=== PATIENT | female | born 1935 | race Caucasian/White ===

== ENCOUNTER → 2017-01-07 | Outpatient (CLI) | payer OTHER ==
[~2017-01-07] MED LIST: ACET-1311 PO; AZITTAB PO; BENZ100C18 PO; BISA10SU38 PR; CEPH500C2 PO; CHOL20005 PO; CHOL20009 PO; CLOP1TAB5 PO; CLR10 PO; FURO-85 PO; HYDR-5688 PO; IPRASOL4 INH; LEVO750T23 PO; MCR/40125 PO; METO25TA3 PO; MOMLX PO; PRED10TA PO; PRNJ PO; SODIENE PR; TELM40TA11 PO; TPRSR25 PO
[2017-01-07 08:35] LABS: BLOOD UREA NITROGEN 42 mg/dl (7-18); BUN/CREATININE RATIO 28.1 (10-20); CALCIUM 8.5 mg/dl (8.5-10.1); CARBON DIOXIDE 24 mmol/L (21-32); CHLORIDE 107 mmol/L (98-107); GLUCOSE 112 mg/dl (70-99); SODIUM 140 mmol/L (136-145)
== END ==
LOC: C.LABCC 07:55
PROVIDERS: ATTEND Internal Medicine
DX: N18.3 Chronic kidney disease, stage 3 (moderate) (principal)

== ENCOUNTER → 2017-01-10 | Outpatient (CLI) | payer OTHER ==
[2017-01-10 09:38] LABS: BLOOD UREA NITROGEN 38 mg/dl (7-18); BUN/CREATININE RATIO 25.2 (10-20); CALCIUM 8.5 mg/dl (8.5-10.1); CARBON DIOXIDE 26 mmol/L (21-32); CHLORIDE 108 mmol/L (98-107); GLUCOSE 108 mg/dl (70-99); POTASSIUM 4.8 mmol/L (3.5-5.1); SODIUM 143 mmol/L (136-145)
== END ==
LOC: C.LABCC 08:45
PROVIDERS: ATTEND Internal Medicine
DX: N18.3 Chronic kidney disease, stage 3 (moderate) (principal)

== ENCOUNTER → 2017-02-07 | Outpatient (CLI) | payer OTHER ==
[2017-02-07 08:42] LABS: BLOOD UREA NITROGEN 44 mg/dl (7-18); BUN/CREATININE RATIO 27.6 (10-20); CALCIUM 8.9 mg/dl (8.5-10.1); CARBON DIOXIDE 30 mmol/L (21-32); CHLORIDE 105 mmol/L (98-107); GLUCOSE 124 mg/dl (70-99); POTASSIUM 4.7 mmol/L (3.5-5.1); SODIUM 141 mmol/L (136-145)
== END | disposition home or self-care (01) ==
LOC: C.LABCC 07:58
PROVIDERS: ATTEND Internal Medicine
DX: I50.9 Heart failure, unspecified (principal); N18.9 Chronic kidney disease, unspecified

== ENCOUNTER → 2017-03-11 | Outpatient (CLI) | payer OTHER ==
[~2017-03-11] MED LIST changes: +BISA10SU3 PR; +MOML PO
[2017-03-11 08:41] LABS: BLOOD UREA NITROGEN 41 mg/dl (7-18); BUN/CREATININE RATIO 22.7 (10-20); CARBON DIOXIDE 26 mmol/L (21-32); CHLORIDE 104 mmol/L (98-107); GLUCOSE 108 mg/dl (70-99); POTASSIUM 4.4 mmol/L (3.5-5.1); SODIUM 138 mmol/L (136-145)
[2017-03-11 08:49] LABS: CALCIUM 9.3 mg/dl (8.5-10.1)
== END ==
LOC: C.LABCC 08:19
PROVIDERS: ATTEND Internal Medicine
DX: N18.9 Chronic kidney disease, unspecified (principal)

== ENCOUNTER 2017-05-14 08:17 | Inpatient (IN) | payer OTHER ==
[~2017-05-14] VITALS: Ht 160 cm; Wt 74.9 kg
[2017-05-14] VITALS (10 sets, daily range): BP systolic 88–113; BP diastolic 51–68; PULSE 77–99; TEMP 36.5–36.9; O2SAT 94–99; Ht 160 cm; Wt 74.9 kg
[~2017-05-14 08:17] MED LIST changes: -ACET-1311 PO; -BISA10SU3 PR; -BISA10SU38 PR; -CEPH500C2 PO; -CHOL20005 PO; -CHOL20009 PO; -CLR10 PO; -FURO-85 PO; -HYDR-5688 PO; -IPRASOL4 INH; -LEVO750T23 PO; -METO25TA3 PO; -MOML PO; -MOMLX PO; -PRNJ PO; -SODIENE PR; -TELM40TA11 PO; -TPRSR25 PO
[2017-05-14] MEDS ORDERED: SODIUM CHLORIDE 0.9% 250ML 250 ML IV STA (08:28)
[2017-05-14] MEDS ORDERED: SODIUM CHLORIDE 0.9% 1000ML 1,000 ML IV STA (08:28)
--- NOTE | 2017-05-14 08:50 | EMERGENCY ROOM VISIT NOTE ---
History Report prepared by Ami: Aretha Ibrahim Under the Supervision of: Dr. Janae Altamirano M.D. First contact with patient: 08:24 Chief Complaint: FEVER Stated Complaint: FEVER History of Present Illness The patient is a 81 year old female who presents to the Emergency Room with complaints of constant fever that was noticed this morning. The history is limited secondary to altered mental status. The patient came to the ED via ambulance from [facility]. Per nursing staff, the patient's temperature was 101 this morning. The fever was relieved with Tylenol. She is at [facility] secondary to a stroke that occurred 15-20 years ago. The patient's daughter reports that the patient appeared to be somewhat confused last night. The patient is not normally on nasal cannula oxygen and her oxygen saturations are around 89-90% at baseline. The patient states that she feels well and she denies any complaints including abdominal pain. Source of History: patient, family (daughter), nursing staff History Limited By: AMS Onset: this morning Position: other (global) Quality: other (fever) Timing: constant Modifying Factors (Relieving): tylenol Associated Symptoms: No abdominal pain Review of Systems See HPI for pertinent positives & negatives. A total of 10 systems reviewed and were otherwise negative. Past Medical & Surgical Medical Problems: (1) History of stroke (2) Hypertension (3) Type 2 diabetes mellitus without complications Family History No pertinent family history Social History Drug Use: none Marital Status: Housing Status: detention Occupation Status: retired Current/Historical Medications Scheduled Cholecalciferol (Vitamin D), 2,000 UNIT PO QAM Clopidogrel Bisulfate (Plavix), 75 MG PO DAILY Furosemide (Lasix), 20 MG PO QAM Loratadine (Claritin), 10 MG PO QAM Telmisartan (Micardis), 40 MG PO QAM Scheduled PRN Acetaminophen (Tylenol), 650 MG PO Q8 PRN for Pain Bisacodyl (Dulcolax), [address] DAILY PRN for NO BM FOR 3 DAYS Magnesium Hydroxide (Milk of Magnesia), 30 ML PO DAILY PRN for NO BM FOR 3 DAYS Prune Juice (Prune Juice ), 1 DOSE PO DAILY PRN for NO BM IN 2 DAYS Sodium Phosphate/Biphosphate (Fleet Enema), [address] DAILY PRN for NO BM FOR 4 DAYS Allergies Coded Allergies: No Known Allergies (Verified , 05/14/17) Physical Exam Vital Signs Date Time Temp Pulse Resp B/P (MAP) Pulse Ox O2 Delivery O2 Flow Rate FiO2 05/14/17 12:11 80 05/14/17 11:27 94 Nasal Cannula 2.0 05/14/17 11:01 85 20 121/67 05/14/17 09:42 93 20 117/69 94 Nasal Cannula 2.0 05/14/17 08:45 93 Nasal Cannula 3.0 05/14/17 08:39 37.2 88 28 115/57 89 Room Air 05/14/17 08:36 95 Physical Exam Vital signs reviewed. General: Chronically ill-appearing elderly female, in no significant distress. HEENT: No scleral icterus, PERRLA, neck supple. Atraumatic. Cardiovascular: Mildly tachycardic rate and regular rhythm, no extra sounds. Pulmonary: Crackles at bases bilaterally, poor inspiratory effort. Abdomen: Soft, nontender, nondistended, positive bowel sounds. Musculoskeletal: Atraumatic, 2+ right lower extremity pitting edema, 1+ left lower extremity pitting edema. Neurologic: Patient awake alert and able to answer questions regarding age and date but confused to year and time, mild right facial droop, mild right- sided upper and lower extremity weakness. Skin: Warm to touch, dry, no rash Medical Decision & Procedures ER Provider Diagnostic Interpretation: Radiology results as stated below per my review and radiologist interpretation: CHEST ONE VIEW PORTABLE COMPARISON STUDY: 10/12/2012 FINDINGS: Parenchymal infiltrate left base. Chronic prominence pulmonary vasculature. Diaphragms are smooth. IMPRESSION: Infiltrate left base. Electronically signed by: Ranjith Navarrete M.D. 05/14/2017 9:04 AM Dictated Date/Time: 05/14/2017 9:[address] NONCONTRAST Findings: The paranasal sinuses and mastoid air cells are clear. Old left cerebral infarct. Mild compensatory prominence left lateral ventricle. Mild age-related atrophy and chronic small vessel change. No acute intracranial abnormality. Impression: 1. Old left cerebral infarct. 2. Age-related atrophy and chronic small vessel change. 3. No acute process. Electronically signed by: Ranjith Navarrete M.D. 05/14/2017 9:23 AM Dictated Date/Time: 05/14/2017 9:22 AM Laboratory Results Test 05/14/17 08:45 05/14/17 08:56 05/14/17 09:05 Prothrombin Time 11.6 SECONDS (9.0-12.0) Prothromb Time International Ratio 1.1 (0.9-1.1) Activated Partial Thromboplast Time 29.4 SECONDS (21.0-31.0) Partial Thromboplastin Ratio 1.1 Direct Bilirubin 0.2 mg/dl (0-0.2) Total Creatine Kinase 455 U/L (26-192) Creatine Kinase MB 0.7 ng/ml (0.5-3.6) Creatine Kinase MB Ratio 0.2 (0-3.0) Troponin I 0.037 ng/ml (0-0.045) Bedside Lactic Acid Venous 1.77 mmol/L (0.90-1.70) Urine Color DK YELLOW Urine Appearance TURBID (CLEAR) Urine pH 5.0 (4.5-7.5) Urine Specific [place] 1.022 (1.000-1.030) Urine Protein 1+ (NEG) Urine Glucose (UA) NEG (NEG) Urine Ketones TRACE (NEG) Urine Occult Blood 3+ (NEG) Urine Nitrite NEG (NEG) Urine Bilirubin NEG (NEG) Urine Urobilinogen NEG (NEG) Urine Leukocyte Esterase LARGE (NEG) Urine WBC (Auto) >30 /hpf (0-5) Urine RBC (Auto) 0-4 /hpf (0-4) Urine Hyaline Casts (Auto) 1-5 /lpf (0-5) Urine Epithelial Cells (Auto) >30 /lpf (0-5) Urine Bacteria (Auto) 1+ (NEG) Urine Renal Epithelial Cells 5-10 /lpf (0-5) Laboratory results per my review. Medications Administered Medications (Trade) Dose Ordered Sig/Ministerio Route Start Time Stop Time Status Last Admin Dose Admin Sodium Chloride 250 ml @ 999 mls/hr Q16M STAT IV 05/14/17 08:28 05/14/17 08:43 DC 05/14/17 09:25 999 MLS/HR Sodium Chloride 1,000 ml @ 125 mls/hr Q8H STAT IV 05/14/17 08:28 05/14/17 13:49 DC 05/14/17 09:25 125 MLS/HR Levofloxacin (Levaquin / D5W) 750 mg NOW STAT IV 05/14/17 10:22 05/14/17 10:28 DC 05/14/17 10:22 750 MG Piperacillin Sod/ Tazobactam Sod (Zosyn Iv) 4.5 gm NOW STAT IV 05/14/17 10:22 05/14/17 10:28 DC 05/14/17 11:06 4.5 GM Vancomycin HCl 1875 mg/Sodium Chloride 537.5 ml @ 200 mls/hr ONE STAT IV 05/14/17 10:22 05/14/17 13:03 DC 05/14/17 11:06 200 MLS/HR ECG Indication: altered mental status Rate (beats per minute): 101 Rhythm: sinus tachycardia Findings: 1st degree AV block, PAC, T-wave inversion (Anterolateral), no acute ischemic change, other (Likely previous inferior and anterior infarcts) ED Course 0827: Past medical records reviewed. The patient was evaluated in room A10. A complete history and physical examination was performed. 0828: Ordered Sodium Chloride 1000 ml @ 125 mls/hr IV, Sodium Chloride 250 ml @ 999 mls/hr IV 1022: Ordered Vancomycin HCl 1875 mg/Sodium Chloride 537.5 ml @ 200 mls/hr IV, Zosyn 4.5 gm IV, Levofloxacin 750 mg IV 1038: Upon reevaluation, the patient is resting comfortably. I discussed laboratory and radiographic results with the patient and her family. They verbalized agreement of the treatment plan. The patient will be evaluated for further management and care. 1120: I reviewed the patient's case with Dr. Madison Lewis [facility]. He will evaluate the patient for further management. Medical Decision Differentials include influenza, other viral illness, pneumonia, urinary tract infection, metabolic abnormality, medication effect, cellulitis, meningitis, intra-abdominal source. Medication Reconciliation: I attest that I have personally reviewed the patient' s current medication list. Blood Pressure Screening: Patient was found to have normal blood pressure on screening and does not require follow-up. This patient was evaluated and appeared to be in no significant distress. She is noted to be febrile. IV access was obtained and laboratory work was drawn. The patient was hydrated with normal saline solution. The patient is noted to have had a fever at the detention prior to transfer. Patient was given Tylenol. Evaluation today reveals evidence of a pulmonary infiltrate at the left base, positive UA for infection. Patient was medicated with IV vancomycin , IV Zosyn and IV Levaquin. He is a possibility of aspiration due to her previous stroke as well as MRSA because of her detention status. The urine should be adequately covered with the above regimen. Blood cultures are pending. Lactic acid is 1.77. Patient's case was discussed with the hospitalist service will evaluate the patient for further management. Consults Time Called: 1033 Consulting Physician: Dr. Maidson YOUSIF Returned Call: 1120 I reviewed the patient's case with Dr. Madison YOUSIF. He will evaluate the patient for further management. Impression Primary Impression: UTI (urinary tract infection) Additional Impressions: Pneumonia Acute renal failure Altered mental status Scribe Attestation The scribe's documentation has been prepared under my direction and personally reviewed by me in its entirety. I confirm that the note above accurately reflects all work, treatment, procedures, and medical decision making performed by me. Departure Information Dispostion Being Evaluated By Hospitalist Referrals KnoxAicha (PCP) Patient Instructions My [facility] Problem Qualifiers Primary Impression: UTI (urinary tract infection) Urinary tract infection type: site unspecified Hematuria presence: without hematuria Qualified Codes: N39.0 - Urinary tract infection, site not specified Additional Impressions: Pneumonia Pneumonia type: due to unspecified organism Laterality: left Lung location : lower lobe of lung Qualified Codes: J18.1 - Lobar pneumonia, unspecified organism Acute renal failure Acute renal failure type: unspecified Qualified Codes: N17.9 - Acute kidney failure, unspecified Altered mental status Altered mental status type: unspecified Qualified Codes: R41.82 - Altered mental status, unspecified
[2017-05-14 09:06] LABS: HEMATOCRIT 32.3 % (37-47); MEAN CELL VOLUME 91.8 fL (80-100); MEAN CORPUSCULAR HEMOGLOBIN 30.7 pg (25-34); MEAN CORPUSCULAR HGB CONC 33.4 g/dl (32-36); MEAN PLATELET VOLUME 10.2 fL (7.4-10.4); PLATELET COUNT 222 K/uL (130-400); RED BLOOD COUNT 3.52 M/uL (4.2-5.4); WHITE BLOOD COUNT 21.54 K/uL (4.8-10.8)
--- NOTE | 2017-05-14 09:06 | DIAGNOSTIC IMAGING REPORT ---
CHEST ONE VIEW PORTABLE CLINICAL HISTORY: fever dyspnea COMPARISON STUDY: 10/12/2012 FINDINGS: Parenchymal infiltrate left base. Chronic prominence pulmonary vasculature. Diaphragms are smooth. IMPRESSION: Infiltrate left base. Electronically signed by: Ranjith Navarrete M.D. 05/14/2017 9:04 AM Dictated Date/Time: 05/14/2017 9:04 AM
[2017-05-14] MEDS ORDERED: CLR10 PO (09:12)
[2017-05-14] MEDS ORDERED: FURO-85 PO (09:12)
[2017-05-14] MEDS ORDERED: CHOL20009 PO (09:14)
[2017-05-14] MEDS ORDERED: TELM40TA11 PO (09:14)
[2017-05-14 09:15] LABS: INR 1.1 (0.9-1.1); PARTIAL THROMBOPLASTIN RATIO 1.1; PROTHROMBIN TIME (PATIENT) 11.6 SECONDS (9.0-12.0)
[2017-05-14] MEDS ORDERED: BISA10SU38 PR (09:16)
[2017-05-14] MEDS ORDERED: PRNJ PO (09:16)
[2017-05-14] MEDS ORDERED: ACET-1311 PO (09:16)
[2017-05-14] MEDS ORDERED: MOMLX PO (09:16)
[2017-05-14] MEDS ORDERED: SODIENE PR (09:16)
[2017-05-14 09:23] LABS: ALT/SGPT 15 U/L (12-78); AST/SGOT 34 U/L (15-37); BLOOD UREA NITROGEN 40 mg/dl (7-18); BUN/CREATININE RATIO 16.8 (10-20); CALCIUM 8.5 mg/dl (8.5-10.1); CARBON DIOXIDE 24 mmol/L (21-32); CHLORIDE 105 mmol/L (98-107); GLUCOSE 131 mg/dl (70-99); MAGNESIUM 1.9 mg/dl (1.8-2.4); POTASSIUM 4.1 mmol/L (3.5-5.1); SODIUM 138 mmol/L (136-145)
--- NOTE | 2017-05-14 09:25 | DIAGNOSTIC IMAGING REPORT ---
HEAD CT NONCONTRAST CT DOSE: 537.48 mGy.cm HISTORY: Mental status change AMS, fever TECHNIQUE: Multiaxial CT images of the head were performed without the use of intravenous contrast. Comparison: None. Findings: The paranasal sinuses and mastoid air cells are clear. Old left cerebral infarct. Mild compensatory prominence left lateral ventricle. Mild age-related atrophy and chronic small vessel change. No acute intracranial abnormality. Impression: 1. Old left cerebral infarct. 2. Age-related atrophy and chronic small vessel change. 3. No acute process. Electronically signed by: Ranjith Navarrete M.D. 05/14/2017 9:23 AM Dictated Date/Time: 05/14/2017 9:22 AM
[2017-05-14 09:27] LABS: BASO ABS # 0.01 K/uL (0-0.2); COMPLETE YES; IG% 1.9 %; LYMPH % 4.8 %; LYMPH ABS # 1.03 K/uL (1.2-3.4); MONO % 2.3 %
[2017-05-14 09:29] LABS: ALKALINE PHOSPHATASE 91 U/L (45-117); CKMB/CK RATIO 0.2 (0-3.0)
[2017-05-14 09:38] LABS: URINE APPEARANCE TURBID (CLEAR); URINE BILIRUBIN NEG (NEG); URINE COLOR DK YELLOW; URINE EPITHELIAL CELL AUTO >30 /lpf (0-5); URINE NITRITE NEG (NEG); URINE SPECIFIC GRAVITY 1.022 (1.000-1.030); UROBILINOGEN NEG (NEG); ZZURINE CULT IF INDIC CATH YES
[2017-05-14 09:40] LABS: MANUAL MICROSCOPIC REQUIRED? NO; REVIEW REQ? YES
[2017-05-14] MEDS ORDERED: VANCOMYCIN IV STA (10:22)
[2017-05-14] MEDS ORDERED: PIPERACILLIN/TAZOBACTAM 4.5 GM/100ML D5W IV STA (10:22)
[2017-05-14] MEDS ORDERED: LEVAQUIN 750MG / 150ML D5W IV STA (10:22)
[2017-05-14] MEDS ORDERED: SODIUM CHLORIDE 0.9% IV STA (10:22)
[2017-05-14] MEDS ORDERED: POLYETHYLENE (MIRALAX) 17 GM PACK PO PRN (12:00)
[2017-05-14] MEDS ORDERED: ALUMINUM/MAGNESIUM/SIMETH (MAALOX MAX) 30 ML UDC PO PRN (12:00)
[2017-05-14] MEDS ORDERED: MAGNESIUM HYDROXIDE SUSP 30 ML UDC PO PRN (12:00)
[2017-05-14] MEDS ORDERED: ACETAMINOPHEN 325 MG TAB PO PRN (12:00)
[2017-05-14] MEDS ORDERED: SOD PHOSPHATE/SOD BIPHOSPHATE ENEMA 132 ML BTL PR PRN (12:15)
[2017-05-14] MEDS ORDERED: BISACODYL 10 MG SUPP PR PRN (12:15)
[2017-05-14] MEDS ORDERED: PRUNE JUICE PO PRN (12:15)
--- NOTE | 2017-05-14 12:43 | HISTORY & PHYSICAL EXAMINATION ---
DATE OF ADMISSION: 05/14/2017 CHIEF COMPLAINT: Shortness of breath/change in mental status x1 day. HISTORY OF PRESENT ILLNESS: Ms. Mary Ashley is an 81-year-old white female with past medical history of left cerebral stroke 21 years ago. Currently, patient is almost bedbound. Occasionally, gets placed in a wheelchair, resident at [facility]. The patient was in her regular state of health until last night when her daughter and power of banking attorney Hanny Katz noticed that her mom is a little bit confused. She did not do a full evaluation in intends of degree of confusion and disorientation, but all what she said "she did not seem to be herself". She said that when she asked the question "she states yes or no, but she was slightly off". This morning at 7:00 a.m. [facility] staff called the daughter and told her that your mom is having fever and shortness of breath. They wanted to send her to the hospital, but the mother refused. . Hanny Katz being her power of banking attorney took the decision to send her to the hospital for further evaluation and management. The patient was brought to the hospital and due to her baseline condition she was able to express pain in her right lower extremity. The patient was not aware of her shortness of breath despite of her oxygen saturation being 89 upon arrival to the ER. Also, patient as always and as usual kept saying "I'm wonderful" and she has no complaints given her underlying CVA and possibly some cognitive dysfunction. As per nursing staff, the symptoms started this morning of shortness of breath and fever and as per daughter since yesterday, she has been confused. The patient's diet at [facility] is regular diet. She is able to move her left hand freely. Right side is paralyzed with muscle atrophy and contractures. Chest x-ray in the ER showed left lower lobe infiltrate. No episodes of aspiration was reported by staff, there was no cough or sputum production but the daughter stated that her mom had a runny nose for about 2 weeks now. Rest of the HPI is limited due to patient cognitive condition. REVIEW OF SYSTEMS: As mentioned in HPI, fever/chills. No significant weight loss. Staff and daughter did not report any headache, vision changes or neck stiffness. A nasal stuffiness and runny nose was reported by daughter, but no history of sore throat. Again, staff and daughter denied any cough. The patient denied any chest pain, abdominal pain, nausea, vomiting. Staff and daughter denied any rash or ulcers. Daughter denied any joint pain, swelling, erythema and was surprised when she saw the right lower extremity swollen and tender and red. Focal weakness in the right side is at her baseline. No new numbness or slurred speech. No reported dysuria or blood in urine. The patient is incontinent. No reported depression, suicide thoughts. There no reported swelling of lymph nodes or skin bruises. FAMILY HISTORY: Positive for breast cancer in her mom. Father had CVA and mother had bypass surgery. SOCIAL HISTORY: The patient used to be a smoker, quit smoking about 20 years ago. Currently resident at [facility]. No access to alcohol or smoking. PAST MEDICAL HISTORY: 1. Breast cancer with history of modified radical mastectomy, left breast. 2. Carotid artery stenosis. 3. Chronic kidney disease stage III. 4. History of diastolic congestive heart failure. 5. Diabetes mellitus type 2. 6. History of dependent edema. 7. History of dyslipidemia. 8. Hypertension. 9. 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 10. Vitamin D deficiency. 11. Anxiety. ALLERGIES: No known allergy. MEDICATIONS: 1. Vitamin D supplement. 2. Plavix 75 mg p.o. daily. 3. Lasix 20 mg p.o. q.a.m. 4. Claritin 10 mg q.a.m. 5. Micardis 40 mg p.o. q.a.m. 6. PRN acetaminophen. 7. PRN bisacodyl. 8. PRN milk of magnesia. 9. PRN prune juice. 10. PRN Fleet enema. PHYSICAL EXAMINATION: VITAL SIGNS: Temperature here is 37.2, heart rate is 93, respiration is 20, blood pressure 117/69, pulse ox 89% on room air, 94% on 2 liters. GENERAL: The patient is obese, appears to be in moderate distress. HEAD, EYES, EARS, NOSE, AND THROAT: No scleral icterus. Moist mucous membrane. Eye -- extraocular muscles intact. NECK: Supple, no swelling. CARDIOVASCULAR: Mildly tachycardia. Regular rate and rhythm with extrasystoles, no significant murmur. LUNGS: Decreased air entry bilaterally. Poor inspiratory effort, decreased chest wall expansion, bilateral crackles at the bases. ABDOMEN: Soft, nontender, nondistended. No swelling. MUSCULOSKELETAL: The right-sided contracture and muscle atrophy. NEUROLOGIC: The patient is awake, alert, oriented. Answers questions appropriately, moves left side of her body. Cranial nerves II-XII appears to be intact except for mild right-sided facial droop. SKIN: Warm to touch, dry. No rash. LOWER EXTREMITY: Right-sided lower extremity erythema, swelling and tenderness with a tinea pedis cracks between toes. PSYCHIATRIC EVALUATION: The patient appears to be pleasant. Not in depressed mood. Answers are appropriate. IMAGING: CT scan head showed old left cerebral infarct. No acute event. Chest x-ray showed left lower lobe density/infiltrate. EKG showed first degree AV block with paroxysmal atrial contractions, tachycardia with ST-T wave abnormality and possible age indeterminate old infarct. LABORATORY DATA: Reviewed. White blood cell count 21.5, hemoglobin 10.8, platelet 222, BUN is 40, creatinine 2.40, sodium 138, potassium 4.1, chloride 105, bicarb is 24. Blood sugar is 131. ASSESSMENT AND PLAN: 1. Acute hypoxic respiratory failure secondary to below. Will titrate O2 supplement for an oxygen saturation 92-94, due to remote history of smoking and current slight wheezing on chest exam would like to avoid oxygen saturation higher than 96. 2. Severe sepsis present on admission/left lower lobe pneumonia, despite of being resident at [facility] will treat her as community-acquired pneumonia giving no evidence of exposure to recent antibiotics. We will obtain rapid flu to rule out secondary bacterial infection on top of influenza, obtain urine strep and legionella, sputum culture, initiate azithromycin/ceftriaxone combination, add Lactinex to protect her from C. diff, obtain swallow eval to rule out aspiration as a source for her pneumonia. 3. Diastolic congestive heart failure exacerbation, will hold IVF except for KVO, small dose of Lasix IV, obtain cardiac 2D echo. place a jimenes, I/O 4. Bronchospasm with wheezes .. would not label her with COPD as she did not have this diagnosis before, bronchospasm could be secondary to pneumonia and inflammatory process in the lung versus cardiac bronchospasm, yet will treat her with a low dose Solu-Medrol and bronchodilators/Atrovent plus Xopenex, avoid albuterol due to coexisting tachycardia. 5. Right lower extremity erythema - swelling - tenderness .. obtain ultrasound duplex right lower extremity, rule out DVT, if no DVT then ceftriaxone given for pneumonia likely to take care of her cellulitis. Source of entry for bacteria if it is cellulitis could be her tinea pedis. 6. Tinea pedis .. ketoconazole between toes x8 weeks. 7. If patient does not have a DVT on ultrasound will not start her on DVT prophylaxis as she is at her baseline immobility. 8. The patient is on regular diet at [facility]. Will continue that with observation and aspiration precautions, and obtain swallow eval to rule out any aspiration incidents. 9. WILBERTO/CKD stage III, Hold ACEI , continue lasix low dose IV with careful monitoring of renal function 10. Hx of CVA, continue plavix 11. The patient's daughter Hanny Katz who is her power of banking attorney stated that her mother is a DO NOT RESUSCITATE AND DO NOT INTUBATE STATUS. She will let her bring the power of banking attorney legal document with him when he comes to the hospital. Nursing staff will scan it into the system. BRIANNE
--- NOTE | 2017-05-14 13:19 | DIAGNOSTIC IMAGING REPORT ---
Venous Doppler right leg RIGHT VENOUS DOPP LOWER EXT UNILAT CLINICAL HISTORY: Right DVT Right pain. Edema. TECHNIQUE: Venous Doppler COMPARISON STUDY: None FINDINGS: Normal study IMPRESSION: Normal study Electronically signed by: Ranjith Navarrete M.D. 05/14/2017 1:18 PM Dictated Date/Time: 05/14/2017 1:17 PM
[2017-05-14] MEDS ORDERED: FUROSEMIDE INJ 20 MG in SYRINGE 0 ML IV SCH (14:00)
[2017-05-14] MEDS ORDERED: SODIUM CHLORIDE 0.9% 1000ML 1,000 ML IV SCH (14:00)
[2017-05-14] MEDS ORDERED: CEFTRIAXONE SOD INJ 1 GM in DEXTROSE 5% ADD-VANTAGE 50ML 50 ML IV SCH (14:00)
[2017-05-14] MEDS: METHYLPREDNISOLONE IV 40 MG in SYRINGE 0 ML IV SCH (14:25)
[2017-05-14] MEDS: AZITHROMYCIN IV 500 MG in DEXTROSE 5% 250ML 250 ML IV SCH (15:01)
[2017-05-14] MEDS: IPRATROPIUM BROMIDE NEB SOLN 0.02% 2.5 ML VIAL INH SCH ×2 (15:55→23:01)
[2017-05-14] MEDS: LEVALBUTEROL 0.63MG/3 ML NEB INH SCH ×2 (15:56→23:01)
[2017-05-14 16:12] LABS: ALT/SGPT 17 U/L (12-78); AST/SGOT 46 U/L (15-37); BLOOD UREA NITROGEN 38 mg/dl (7-18); BUN/CREATININE RATIO 16.7 (10-20); CALCIUM 7.6 mg/dl (8.5-10.1); CARBON DIOXIDE 19 mmol/L (21-32); CHLORIDE 103 mmol/L (98-107); GLUCOSE 144 mg/dl (70-99); POTASSIUM 4.1 mmol/L (3.5-5.1); SODIUM 136 mmol/L (136-145)
[2017-05-14 16:15] LABS: ALB/GLOB RATIO 0.6 (0.9-2); ALKALINE PHOSPHATASE 76 U/L (45-117); CHOLESTEROL 116 mg/dl (0-200); CHOLESTEROL/HDL RATIO 2.3; HDL CHOLESTEROL 50 mg/dl; LDL CHOLESTEROL CALCULATED 49 mg/dl; TRIGLYCERIDES 85 mg/dl (0-150); VERY LOW DENSITY LIPOPROT CALC 17 mg/dl
[2017-05-14] MEDS ORDERED: ALPRAZOLAM 0.25 MG TAB PO ONE (17:00)
[2017-05-14] MEDS ORDERED: NURSING VERBAL MED ORDER ONE ×2 (17:00→21:30)
[2017-05-14] MEDS: LACTOBACILLUS ACIDOPHILUS 1 GM PACK PO SCH (17:19)
[2017-05-14 17:48] LABS: BLOOD UREA NITROGEN 40 mg/dl (7-18); GLUCOSE 165 mg/dl (70-99)
[2017-05-14 17:49] LABS: BUN/CREATININE RATIO 16.8 (10-20); CALCIUM 7.9 mg/dl (8.5-10.1); CARBON DIOXIDE 20 mmol/L (21-32); CHLORIDE 103 mmol/L (98-107); MAGNESIUM 1.6 mg/dl (1.8-2.4); POTASSIUM 3.8 mmol/L (3.5-5.1); SODIUM 136 mmol/L (136-145)
--- NOTE | 2017-05-14 18:18 | Progress Note ---
Progress Note Date of Service May 14, 2017. Progress Note Addendum following up on her condition; Lactate increased to 3.3 Procalcitonin is >11 continues to be SOB will change her Abx regimen to HCAP switch CTXN to Cefepime add zyvox due to WILBERTO/CKD would avoid vanco untill creatinine stabilizes consult Dr. Maile Lewis MD Hospitalist
[2017-05-14] MEDS: LINEZOLID / D5W 600 MG in PREMIXED IN D5W 300 ML IV SCH (18:28)
[2017-05-14] MEDS: FUROSEMIDE INJ 20 MG in SYRINGE 0 ML IV SCH (18:28)
[2017-05-14] MEDS: PATIENT'S HEIGHT NEEDED SCH ×2 (18:29→18:30)
[2017-05-14] MEDS: CEFEPIME IV 1,000 MG in DEXTROSE 5% 100ML 100 ML IV SCH (20:22)
[2017-05-14] MEDS: KETOCONAZOLE 2% CR 15 GM TUBE EXT SCH (20:22)
[2017-05-14] MEDS ORDERED: MAGNESIUM SULFATE 1GM / D5W 1 GM in PREMIXED IN D5W 100 ML IV STA (21:49)
[2017-05-15] VITALS (12 sets, daily range): BP systolic 78–117; BP diastolic 41–66; PULSE 69–94; TEMP 36.4–36.8; O2SAT 93–98
[2017-05-15] MEDS: ALBUMIN HUMAN 25% 12.5 GM/50 ML VIAL IV SCH ×2 (00:32→00:53)
[2017-05-15] MEDS ORDERED: NURSING VERBAL MED ORDER ONE ×2 (01:00→11:00)
[2017-05-15] MEDS: METHYLPREDNISOLONE IV 40 MG in SYRINGE 0 ML IV SCH (02:20)
[2017-05-15 05:59] LABS: BASO % 0.1 %; BASO ABS # 0.01 K/uL (0-0.2); HEMATOCRIT 26.9 % (37-47); IG% 2.2 %; LYMPH % 6.5 %; LYMPH ABS # 1.08 K/uL (1.2-3.4); MEAN CELL VOLUME 92.4 fL (80-100); MEAN CORPUSCULAR HEMOGLOBIN 30.2 pg (25-34); MEAN CORPUSCULAR HGB CONC 32.7 g/dl (32-36); MEAN PLATELET VOLUME 9.8 fL (7.4-10.4); MONO % 2.4 %; NEUT % 88.8 %; PLATELET COUNT 158 K/uL (130-400); RED BLOOD COUNT 2.91 M/uL (4.2-5.4); WHITE BLOOD COUNT 16.58 K/uL (4.8-10.8)
[2017-05-15] MEDS: FUROSEMIDE INJ 20 MG in SYRINGE 0 ML IV SCH (06:04)
[2017-05-15] MEDS: LINEZOLID / D5W 600 MG in PREMIXED IN D5W 300 ML IV SCH ×2 (06:05→18:26)
[2017-05-15 06:25] LABS: COMPLETE YES; DOHLE BODIES 1+; TOXIC GRANULATION 1+
[2017-05-15 06:28] LABS: MAGNESIUM 2.2 mg/dl (1.8-2.4); PHOSPHORUS 4.2 mg/dl (2.5-4.9)
[2017-05-15] MEDS: IPRATROPIUM BROMIDE NEB SOLN 0.02% 2.5 ML VIAL INH SCH (07:35)
[2017-05-15] MEDS: LEVALBUTEROL 0.63MG/3 ML NEB INH SCH (07:35)
[2017-05-15] MEDS: KETOCONAZOLE 2% CR 15 GM TUBE EXT SCH ×2 (08:01→20:42)
[2017-05-15] MEDS: CHOLECALCIFEROL 1000 INTER.UNIT TAB PO SCH (08:01)
[2017-05-15] MEDS: CLOPIDOGREL BISULFATE 75 MG TAB PO SCH (08:01)
[2017-05-15] MEDS: CEFEPIME IV 1,000 MG in DEXTROSE 5% 100ML 100 ML IV SCH ×2 (08:02→20:42)
[2017-05-15] MEDS ORDERED: ALBUT/IPRATROP 3MG/0.5MG NEB 3 ML VIAL INH PRN (09:00)
--- NOTE | 2017-05-15 09:17 | DIAGNOSTIC IMAGING REPORT ---
CHEST ONE VIEW PORTABLE HISTORY: wheezing COMPARISON: Chest 05/14/2017. FINDINGS: The heart remains mildly enlarged. Mild interstitial pulmonary edema and small bilateral pleural effusions persist. No pneumothorax. Patchy densities the left lung base may represent atelectasis or pneumonia.. Left axillary surgical clips are again noted. IMPRESSION: No change in the mild interstitial pulmonary edema and small bilateral pleural effusions. Stable patchy density at the left lung base. Electronically signed by: Kenan Camarillo M.D. 05/15/2017 9:15 AM Dictated Date/Time: 05/15/2017 9:14 AM
--- NOTE | 2017-05-15 09:19 | Progress Note ---
Progress Note Date of Service May 15, 2017. Progress Note ID Consult Dictated #[id number] A/P: 1. GNR sepsis, likely secondary to uti 2. LLL PNA 3. Leukocytosis -Continue broad spectrum abx, follow cultures, hopefully can narrow soon -repeat blood cultures -Will follow, thank you
--- NOTE | 2017-05-15 09:40 | ECHOCARDIOGRAM REPORT ---
*NOTICE TO RECEIVING LIBERTARIAN AGENCY This information is strictly Confidential and protected under [place] law. [place] law prohibits you from making any further disclosure of this information unless further disclosure is expressly permitted by the written consent of the person to whom it pertains or is authorized by law. A general authorization for the release of medical or other information is not sufficient for this purpose. Hospital accepts no responsibility if the information is made available to any other person, INCLUDING THE PATIENT. Interpretation Summary * Name: NOAH LUZ Study Date: 05/15/2017 06:44 AM BP: 95/60 mmHg * Patient Location: [facility] HR: 71 * : 1935 (M/d/yyyy) Gender: Female Height: 63 in * Age: 81 yrs Ethnicity: [place] Weight: 167 lb * Ordering Physician: TIFFANIE COOPER MD * Performed By: Sheron Hrust * * Reason For Study: CHF * BSA: 1.8 m2 * -- Conclusions -- * The left ventricle is normal in size. * There is mild concentric left ventricular hypertrophy. * Ejection Fraction = 60-65%. * Left ventricular systolic function is normal. * The left ventricular wall motion is normal. * The RV is dilated with normal RV function * The right ventricular systolic function is normal as assessed by tricuspid annular plane systolic excursion (TAPSE) (normal >1.5 cm). * Aortic valve sclerosis mild, without significant aortic valvular stenosis. * Mild aortic regurgitation. * Right ventricular systolic pressure is normal. * Small pericardial effusion. (not hemodynamically significant) * Grade I diastolic dysfunction, (abnormal relaxation pattern). Procedure Details * A complete two-dimensional transthoracic echocardiogram was performed (2D, M-mode, Doppler and color flow Doppler). * The study was technically difficult. * There were technical limitations due to patient'sinability to cooperate * A contrast injection of Definity was performed to improve assessment of LV function. * Contrast was injected into an intravenous site in the right arm. * One vial of Definity ultrasound contrast was diluted in normal saline to a total volume of 10 ml. A total of '3' ml of solution was administered during imaging. * Lot # [id number] of Definity utilized for procedure. * Expiration date 05/15. Left Ventricle * The left ventricle is normal in size. * There is mild concentric left ventricular hypertrophy. * Ejection Fraction = 60-65%. * Left ventricular systolic function is normal. * The left ventricular wall motion is normal. Right Ventricle * The RV is dilated with normal RV function * The right ventricular systolic function is normal as assessed by tricuspid annular plane systolic excursion (TAPSE) (normal >1.5 cm). Atria * The left atrial size is normal. * Right atrial size is normal. Mitral Valve * The mitral valve is grossly normal. * There is trace mitral regurgitation. Tricuspid Valve * The tricuspid valve is not well visualized, but is grossly normal. * There is trace tricuspid regurgitation. * Right ventricular systolic pressure is normal. Aortic Valve * Aortic valve sclerosis mild, without significant aortic valvular stenosis. * Mild aortic regurgitation. Pulmonic Valve * The pulmonic valve is not well seen, but is grossly normal. Great Vessels * The aortic root is normal size. Pericardium/Pleural * Small pericardial effusion. Great Vessels * Normal size IVC with abnormal collapse Left Ventricular Diastolic Function * Grade I diastolic dysfunction, (abnormal relaxation pattern). MMode 2D Measurements and Calculations IVSd 1.3 cm IVSs 1.9 cm LVIDd 4.7 cm LVIDs 3.4 cm LVPWd 0.94 cm LVPWs 1.9 cm IVS/LVPW 1.4 FS 27.7 % EDV(Teich) 103.8 ml ESV(Teich) 48.1 ml EF(Teich) 53.6 % EDV(cubed) 105.7 ml ESV(cubed) 40.0 ml EF(cubed) 62.1 % % IVS thick 47.0 % % LVPW thick 99.3 % LV mass(C)d 197.1 grams LV mass(C)dI 110.0 grams/m\S\2 LV mass(C)s 283.3 grams LV mass(C)sI 158.2 grams/m\S\2 SV(Teich) 55.7 ml SI(Teich) 31.1 ml/m\S\2 SV(cubed) 65.7 ml SI(cubed) 36.7 ml/m\S\2 ACS 1.7 cm asc Aorta Diam 3.2 cm LVOT diam 2.0 cm LVOT area 3.1 cm\S\2 LVAd ap4 25.8 cm\S\2 LVLd ap4 7.3 cm EDV(MOD-sp4) 75.8 ml EDV(sp4-el) 77.5 ml LVAs ap4 15.9 cm\S\2 LVLs ap4 6.3 cm ESV(MOD-sp4) 33.1 ml ESV(sp4-el) 34.2 ml EF(MOD-sp4) 56.3 % EF(sp4-el) 55.9 % SV(MOD-sp4) 42.7 ml SI(MOD-sp4) 23.8 ml/m\S\2 SV(sp4-el) 43.4 ml SI(sp4-el) 24.2 ml/m\S\2 Doppler Measurements and Calculations MV E max sushma 84.7 cm/sec MV A max sushma 99.1 cm/sec MV E/A 0.85 MV dec time 0.16 sec Ao V2 max 89.8 cm/sec Ao max PG 3.2 mmHg Ao max PG (full) 0.79 mmHg YVETTE(V,A) 2.7 cm\S\2 YVETTE(V,D) 2.7 cm\S\2 LV V1 max PG 2.4 mmHg LV V1 max 78.1 cm/sec PA V2 max 62.6 cm/sec PA max PG 1.6 mmHg TR max sushma 237.8 cm/sec
[2017-05-15 10:08] LABS: BUN/CREATININE RATIO 16.5 (10-20); CREATININE 2.9 mg/dl (0.60-1.20); POTASSIUM 3.6 mmol/L (3.5-5.1)
[2017-05-15 10:10] LABS: CALCIUM 7.9 mg/dl (8.5-10.1)
[2017-05-15] MEDS: LACTOBACILLUS ACIDOPHILUS 1 GM PACK PO SCH ×3 (10:47→16:57)
[2017-05-15] MEDS: ALBUT/IPRATROP 3MG/0.5MG NEB 3 ML VIAL INH SCH ×3 (12:00→19:20)
[2017-05-15] MEDS: NSS + 20MEQ KCL 1000ML 1,000 ML IV SCH (13:29)
[2017-05-15] MEDS ORDERED: CEFEPIME CONSULT ACTIVE PRN ×2 (13:30)
--- NOTE | 2017-05-15 14:31 | Progress Note ---
Subjective Date of Service: May 15, 2017. Subjective Pt evaluation today including: conversation w/ patient, conversation w/ family (daughter), physical exam, lab review (Cr rising), review of studies (echo normal, repeat CXR unchanged), review of inpatient medication list Pain: denies pain PO Intake: adequate Voiding: jimenes catheter in place patient sitting in chair this AM, no distress, breathing slightly labored not much meaningful history from her, any question she was asked, responded "I' m wonderful" daughter at bedside, said that she looks slightly better compared to admission she had a fever, cough, shortness of breath at [place] daughter unsure if she was eating or drinking well prior to admission appreciate ID consult, keep broad spec antibiotics, repeat blood cultures drawn echo reviewed, normal EF, grade I diastolic dysfunction labs reviewed, Cr trending upward to 2.9, likely over diuresed Problem List Medical Problems: (1) Acute renal failure Status: Acute (2) Altered mental status Status: Acute (3) History of stroke Status: Chronic (4) Hypertension Status: Chronic (5) Pneumonia Status: Acute (6) UTI (urinary tract infection) Status: Acute Review of Systems cannot perform detailed ROS, patient answers "I'm wonderful" to every question Medications Current Inpatient Medications Medications (Trade) Dose Ordered Sig/Ministerio Route Start Time Stop Time Status Last Admin Dose Admin Acetaminophen (Tylenol Tab) 650 mg Q4H PRN PO 05/14/17 12:00 06/13/17 11:59 Al Hydrox/Mg Hydrox/Simethicone (Maalox Max Susp) 15 ml Q4H PRN PO 05/14/17 12:00 06/13/17 11:59 Magnesium Hydroxide (Milk Of Magnesia Susp) 30 ml Q12H PRN PO 05/14/17 12:00 06/13/17 11:59 Zolpidem Tartrate (Ambien Tab) 5 mg HSZ PRN PO 05/14/17 12:00 06/13/17 11:59 Polyethylene (Miralax Powder Packet) 17 gm DAILY PRN PO 05/14/17 12:00 06/13/17 11:59 Azithromycin 500 mg/Dextrose 255 ml @ 170 mls/hr DAILY@1500 IV 05/14/17 15:00 05/21/17 14:59 05/14/17 15:01 170 MLS/HR Ketoconazole (Nizoral 2% Crm) 2 appln Q12 EXT 05/14/17 21:00 05/24/17 20:59 05/15/17 08:01 2 APPLN Lactobacillus Acidophilus (Lactinex Granules Pack) 1 gm TIDM PO 05/14/17 16:45 06/13/17 16:44 05/15/17 11:23 1 GM Bisacodyl (Dulcolax Supp) 10 mg DAILY PRN OK 05/14/17 12:15 06/13/17 12:14 Clopidogrel Bisulfate (plAVix TAB) 75 mg DAILY PO 05/15/17 09:00 06/14/17 08:59 05/15/17 08:01 75 MG Sodium Biphosphate/ Sodium Phosphate (Fleet Enema) 200 ml DAILY PRN OK 05/14/17 12:15 06/13/17 12:14 Cholecalciferol (Vitamin D Tab) 2,000 inter.unit QAM PO 05/15/17 09:00 06/14/17 08:59 05/15/17 08:01 2,000 INTER.UNIT Linezolid 600 mg/ Prmx 300 ml @ 300 mls/hr Q12@0600,1800 IV 05/14/17 18:30 05/21/17 18:29 05/15/17 06:05 300 MLS/HR Cefepime HCl 1000 mg/Dextrose 111.3 ml @ 200 mls/hr Q12H IV 05/14/17 20:00 05/15/17 23:59 05/15/17 08:02 200 MLS/HR Albuterol/ Ipratropium (Duoneb) 3 ml QIDR INH 05/15/17 12:00 06/14/17 11:59 Albuterol/ Ipratropium (Duoneb) 3 ml Q2R PRN INH 05/15/17 09:00 06/14/17 08:59 Prednisone (PredniSONE TAB) 20 mg QAM PO 05/16/17 09:00 06/15/17 08:59 Potassium Chloride/Sodium Chloride 1,000 ml @ 75 mls/hr [id number] IV 05/15/17 13:30 06/14/17 13:29 05/15/17 13:29 75 MLS/HR Cefepime HCl (Consult) 1 ea UD PRN N/A 05/15/17 13:30 06/14/17 13:29 Cefepime HCl 2000 mg/Dextrose 112.5 ml @ 225 mls/hr Q24H IV 05/16/17 08:00 05/23/17 23:59 Objective Vital Signs Date Time Temp Pulse Resp B/P (MAP) Pulse Ox O2 Delivery O2 Flow Rate FiO2 05/15/17 12:06 Nasal Cannula 3.0 05/15/17 11:26 36.4 92 17 90/62 (71) 98 Nasal Cannula 3.0 05/15/17 08:06 Nasal Cannula 3.0 05/15/17 07:34 36.5 78 18 102/66 (78) 94 Nasal Cannula 2.0 05/15/17 07:30 70 20 94 Nasal Cannula 3.0 05/15/17 06:03 71 95/60 (72) 05/15/17 04:23 36.7 80 18 87/54 (65) 97 Nasal Cannula 3.0 05/15/17 04:00 Nasal Cannula 3.0 05/15/17 00:34 84 94/61 (72) 05/15/17 00:15 69 78/45 (56) 05/15/17 00:00 Nasal Cannula 3.0 05/14/17 23:55 36.5 84 18 88/51 (63) 97 Nasal Cannula 05/14/17 23:01 77 20 94 Nasal Cannula 3.0 05/14/17 22:23 22 94 Nasal Cannula 3.0 05/14/17 20:00 97 Nasal Cannula 3.0 05/14/17 18:35 36.5 94 24 92/51 (65) 97 Nasal Cannula 3.0 05/14/17 16:00 96 Nasal Cannula 3.0 05/14/17 15:57 92 20 96 Nasal Cannula 3.0 05/14/17 15:04 36.9 99 18 111/68 (82) 99 Nasal Cannula 3.0 05/14/17 13:38 36.7 97 25 113/65 (81) 96 Nasal Cannula 3.0 Physical Exam General Appearance: WD/WN, + mild distress (pursed lip breathing) Neck: supple, no adenopathy, no JVD, trachea midline Respiratory/Chest: chest non-tender, no accessory muscle use, + respiratory distress (mild), + decreased breath sounds, + wheezing Cardiovascular: regular rate, rhythm, no edema, no gallop, no JVD, no murmur Abdomen: normal bowel sounds, non tender, soft, no organomegaly Extremities: normal range of motion, non-tender, normal inspection, no calf tenderness, pelvis stable, + pedal edema (trace bilaterally) Neurologic/Psychiatric: support teacher II-XII nml as tested, no motor/sensory deficits, alert, normal mood/affect, + disoriented Skin: normal color, warm/dry, no rash Lymphatic: no adenopathy Laboratory Results CHEST ONE VIEW PORTABLE HISTORY: wheezing COMPARISON: Chest 05/14/2017. FINDINGS: The heart remains mildly enlarged. Mild interstitial pulmonary edema and small bilateral pleural effusions persist. No pneumothorax. Patchy densities the left lung base may represent atelectasis or pneumonia.. Left axillary surgical clips are again noted. IMPRESSION: No change in the mild interstitial pulmonary edema and small bilateral pleural effusions. Stable patchy density at the left lung base. Last 24 Hours Test 05/14/17 13:42 05/14/17 13:45 05/14/17 15:45 05/14/17 17:20 Influenza Type A Antigen Neg for Influ A Influenza Type B Antigen Neg for Influ B Sodium Level 136 mmol/L 136 mmol/L Potassium Level 4.1 mmol/L 3.8 mmol/L Chloride Level 103 mmol/L 103 mmol/L Carbon Dioxide Level 19 mmol/L 20 mmol/L Anion Gap 14.0 mmol/L 13.0 mmol/L Blood Urea Nitrogen 38 mg/dl 40 mg/dl Creatinine 2.30 mg/dl 2.40 mg/dl Estimated GFR () 22.2 21.1 Estimated GFR (Non- 19.2 18.2 BUN/Creatinine Ratio 16.7 16.8 Random Glucose 144 mg/dl 165 mg/dl Lactic Acid Level 3.3 mmol/L Calcium Level 7.6 mg/dl 7.9 mg/dl Total Bilirubin 0.8 mg/dl Aspartate Amino Transf (AST/SGOT) 46 U/L Alanine Aminotransferase (ALT/SGPT) 17 U/L Alkaline Phosphatase 76 U/L Total Protein 6.8 gm/dl Albumin 2.5 gm/dl Globulin 4.3 gm/dl Albumin/Globulin Ratio 0.6 Triglycerides Level 85 mg/dl Cholesterol Level 116 mg/dl HDL Cholesterol 50 mg/dl LDL Cholesterol, Calculated 49 mg/dl VLDL Cholesterol, Calculated 17 mg/dl Cholesterol/HDL Ratio 2.3 Procalcitonin 11.90 ng/ml Magnesium Level 1.6 mg/dl Test 05/15/17 05:47 05/15/17 09:40 White Blood Count 16.58 K/uL Red Blood Count 2.91 M/uL Hemoglobin 8.8 g/dL Hematocrit 26.9 % Mean Corpuscular Volume 92.4 fL Mean Corpuscular Hemoglobin 30.2 pg Mean Corpuscular Hemoglobin Concent 32.7 g/dl Platelet Count 158 K/uL Mean Platelet Volume 9.8 fL Neutrophils (%) (Auto) 88.8 % Lymphocytes (%) (Auto) 6.5 % Monocytes (%) (Auto) 2.4 % Eosinophils (%) (Auto) 0.0 % Basophils (%) (Auto) 0.1 % Neutrophils # (Auto) 14.72 K/uL Lymphocytes # (Auto) 1.08 K/uL Monocytes # (Auto) 0.40 K/uL Eosinophils # (Auto) 0.00 K/uL Basophils # (Auto) 0.01 K/uL RDW Standard Deviation 48.4 fL RDW Coefficient of Variation 14.3 % Immature Granulocyte % (Auto) 2.2 % Immature Granulocyte # (Auto) 0.37 K/uL Toxic Granulation 1+ Dohle Bodies 1+ Lactic Acid Level 2.5 mmol/L Phosphorus Level 4.2 mg/dl Magnesium Level 2.2 mg/dl Sodium Level 135 mmol/L Potassium Level 3.6 mmol/L Chloride Level 98 mmol/L Carbon Dioxide Level 20 mmol/L Anion Gap 17.0 mmol/L Blood Urea Nitrogen 48 mg/dl Creatinine 2.90 mg/dl Est Creatinine Clear Calc Drug Dose 14.6 ml/min Estimated GFR () 16.8 Estimated GFR (Non- 14.5 BUN/Creatinine Ratio 16.5 Random Glucose 248 mg/dl Calcium Level 7.9 mg/dl Assessment and Plan 81 yo female with history of ischemic CVA with right sided weakness, presented to the ED from [facility] with fever, hypoxia, dyspnea Leukocytosis, WILBERTO on admission - Severe sepsis: evidence of organ failure with WILBERTO, hypoxia, hypotension and encephalopathy, no evidence of shock, LA elevated at 2.5 clearly has UTI on UA as well as urine culture growing GNR as well as one out of two blood cultures also, appears to have left lower lobe infiltrate continue broad spectrum antibiotics with Cefepime, Zithromax and Zyvox ( chosen due to renal failure) ID following repeat cultures drawn 05/15, follow up final results NSS at 75cc/hr, bolus if hypotensive afebrile since admission, WBC trending down, follow labs - UTI with bacteremia: GNR growing in one of two cultures, follow up final results, broad spec antibiotics - HCAP: patient from SNF, broad coverage and will taper as she improves clinically - Acute hypoxic respiratory failure: treat pneumonia and bronchospasms/possible COPD echo shows normal EF, diastolic dysfunction - Bronchospasm vs COPD exacerbation: decreased breath sounds, bilateral wheezing that improved with nebulizers Prednisone, Duonebs - WILBERTO on CKD stage III: baseline Cr 1.5-1.8, was elevated on admission at 2.4, likely prerenal patient received Lasix in the ED and again after arriving to the floor Cr up to 2.9 today, evidence of elevated anion gap acidosis from WILBERTO NSS at 75cc/hr, bolus if hypotensive, repeat labs tomorrow, hold nephrotoxins , follow UO if Cr gets worse tomorrow, would consult nephrology - h/o ischemic CVA: continue Plavix DVT prophylaxis: heparin q12 DNR, Do not intubate
[2017-05-15] MEDS: AZITHROMYCIN IV 500 MG in DEXTROSE 5% 250ML 250 ML IV SCH (14:37)
--- NOTE | 2017-05-15 18:24 | INFECT. DISEASE CONSULTATION ---
DATE OF CONSULTATION: 05/15/2017 REQUESTING PHYSICIAN HISTORY OF PRESENT ILLNESS: This is an 81-year-old female who was admitted from [facility] after she had a change in mental status. Currently, on my examination, she is out of bed to chair and states she is feeling significantly better. She did have a chest x-ray in the Emergency Room which showed a left lower lobe infiltrate. She initially had a white blood cell count of 21,000; however, this has improved to 16 today. She was started on multiple antibiotics, consisting of cefepime, Zyvox, azithromycin and Solu-Medrol. She has been afebrile since admission. She did have a markedly positive urinalysis with greater than 30 WBCs and 1+ bacteria. She does have a Calle catheter in place. She states that today she is feeling significantly better. She denies any chest pain, cough or shortness of breath. She denies any nausea, vomiting or diarrhea, but states her appetite was poor and she did not want to eat breakfast this morning. All remaining review of systems are reviewed and are unremarkable. PAST MEDICAL HISTORY: Significant for breast cancer, carotid artery stenosis, chronic kidney disease, congestive heart failure, type 2 diabetes, dyslipidemia, hypertension, CVA 21 years previous, vitamin D deficiency and anxiety. PAST SURGICAL HISTORY: Significant for left mastectomy. ALLERGIES: She has no known drug allergies. SOCIAL HISTORY: Significant for history of tobacco use. There is no alcohol or drug use. She currently is a resident at [facility]. FAMILY HISTORY: Noncontributory. MEDICATIONS: Include DuoNeb, Plavix, vitamin D, cefepime, linezolid, Lasix, azithromycin, Solu-Medrol, Dulcolax, Tylenol, Maalox, milk of magnesia, Ambien, MiraLax. PHYSICAL EXAMINATION: VITAL SIGNS: She is afebrile, pulse 78, respiratory rate 18, blood pressure 102/66. Oxygen saturation is 94% on 2 liters nasal cannula. GENERAL: She is awake and alert and uncomfortable, is out of bed to chair on my examination. HEENT: Mucous membranes are moist. Extraocular muscles are intact. HEART: Regular. LUNGS: Decreased at the bases bilaterally but there is no wheezing or rhonchi. ABDOMEN: Soft and nontender. EXTREMITIES: There is trace lower extremity edema. Calle catheter is in place with yellow urine. LABORATORY STUDIES: CBC reveals a white blood cell count of 16.5, hemoglobin 8.8, platelets are 158. Chemistry panel reveals a sodium of 136, potassium 3.8, chloride 103, bicarb 20, BUN 40, creatinine 2.4, glucose is 165. Procalcitonin was 11.9. LFTs are within normal limits. Again, urinalysis was greater than 30 WBCs with 1+ bacteria. Flu swab was negative. Blood culture from the is now growing gram-negative rods in 1 out of 2 sets, as is her urine culture. Lower extremity ultrasound was negative for DVT. Chest x-ray shows an infiltrate at the left base. ASSESSMENT AND PLAN: Gram-negative septicemia, likely secondary to urinary source. She will remain on cefepime, pending the results of her blood cultures. Repeat blood cultures will be obtained today. If no gram-positives are identified, she will likely be narrowed in the next 24-48 hours. We will follow with you. Thank you for this consultation. BRIANNE
[2017-05-15] MEDS: ZOLPIDEM TARTRATE 5 MG TAB PO PRN (20:42)
[2017-05-15] MEDS: HEPARIN SOD 5000 UNIT/0.5 ML CARP SQ SCH (20:43)
[2017-05-16] VITALS (13 sets, daily range): BP systolic 86–121; BP diastolic 48–69; PULSE 76–105; TEMP 36.5–36.8; O2SAT 91–96
[2017-05-16 05:24] LABS: HEMATOCRIT 26.4 % (37-47); MEAN CELL VOLUME 90.7 fL (80-100); MEAN CORPUSCULAR HEMOGLOBIN 30.2 pg (25-34); MEAN CORPUSCULAR HGB CONC 33.3 g/dl (32-36); MEAN PLATELET VOLUME 10.3 fL (7.4-10.4); PLATELET COUNT 159 K/uL (130-400); RED BLOOD COUNT 2.91 M/uL (4.2-5.4); WHITE BLOOD COUNT 21.36 K/uL (4.8-10.8)
[2017-05-16 05:41] LABS: BUN/CREATININE RATIO 20.2 (10-20); CALCIUM 7.2 mg/dl (8.5-10.1); CREATININE 2.9 mg/dl (0.60-1.20); MAGNESIUM 2.1 mg/dl (1.8-2.4)
[2017-05-16 05:45] LABS: BASO ABS # 0.01 K/uL (0-0.2); COMPLETE YES; DOHLE BODIES 1+; IG% 0.7 %; LYMPH % 4.6 %; LYMPH ABS # 0.98 K/uL (1.2-3.4); MONO % 3.6 %; NEUT % 91.1 %; TOXIC GRANULATION 1+
[2017-05-16] MEDS: LINEZOLID / D5W 600 MG in PREMIXED IN D5W 300 ML IV SCH (05:48)
[2017-05-16] MEDS: NSS + 20MEQ KCL 1000ML 1,000 ML IV SCH ×3 (05:48→21:11)
[2017-05-16] MEDS ORDERED: SODIUM CHLORIDE 0.9% 500ML 500 ML IV ONE (06:30)
[2017-05-16] MEDS: ALBUT/IPRATROP 3MG/0.5MG NEB 3 ML VIAL INH SCH ×4 (07:28→19:19)
[2017-05-16] MEDS: CHOLECALCIFEROL 1000 INTER.UNIT TAB PO SCH (07:56)
[2017-05-16] MEDS: KETOCONAZOLE 2% CR 15 GM TUBE EXT SCH ×2 (07:56→20:26)
[2017-05-16] MEDS: LACTOBACILLUS ACIDOPHILUS 1 GM PACK PO SCH ×3 (07:56→16:59)
[2017-05-16] MEDS: CLOPIDOGREL BISULFATE 75 MG TAB PO SCH (07:56)
[2017-05-16] MEDS: HEPARIN SOD 5000 UNIT/0.5 ML CARP SQ SCH ×2 (07:58→20:27)
[2017-05-16] MEDS: CEFEPIME IV 2000 MG in DEXTROSE 5% 100ML IV SCH (07:58)
[2017-05-16 08:27] LABS: ESTIMATED AVERAGE GLUCOSE 134 mg/dl; HA1C FLAG Normal (Normal)
[2017-05-16] MEDS ORDERED: FUROSEMIDE 20 MG TAB PO SCH (09:00)
--- NOTE | 2017-05-16 09:14 | Clinical Documentation Query ---
CLINICAL DOCUMENTATION QUERY Dr. SANCHEZ, In your clinical opinion is this patient being managed for: ( x ) possible Acute kidney failure with unknown etiology ( ) Other explanation of clinical findings (Please Explain) ( ) Unable to determine (Please Define) ( ) Need to Discuss ( ) Not Agree The medical record reflects the following clinical findings, treatment, and risk factors. Clinical Indicators: 81 yo female presenting with severe sepsis, WILBERTO, acute diastolic CHF. Initial Cr 2.4 (noted baseline to be 1.5-1.8). Cr has climbed to 2.9 now. UOP down to 50cc in last 8 hour shift. Hypotension as low as 78/45 x approx. 17 hours Treatment: stop po lasix, IV fluid bolus, IV fluids continuous, follow PRP's, hold nephrotoxins, I/O Risk Factors: age, severe sepsis, IV lasix, hypotension, WILBERTO/CKD stage III, acute diastolic CHF Please clarify and document your clinical opinion in the progress notes and discharge summary. Terms such as "probable", "suspected", "likely", "questionable", "possible", or "still to be ruled out" are acceptable. IF IN AGREEMENT, YOU MUST DOCUMENT ABOVE DIAGNOSTIC STATEMENT IN DAILY PROGRESS NOTES AND DISCHARGE SUMMARY. This document is not part of the patient's record. Thank You, Toshia Bueno RN [phone]
--- NOTE | 2017-05-16 11:00 | Progress Note ---
Subjective Date of Service: May 16, 2017. Subjective Pt evaluation today including: conversation w/ patient, physical exam, chart review, lab review, review of studies, conversation w/ corporate travel consultant, review of inpatient medication list Voiding: jimenes catheter in place Pleasant, conversational, awake and alert and orientated, some cough, was eating meal, lower extremity swelling Problem List Medical Problems: (1) Acute renal failure Status: Acute (2) Altered mental status Status: Acute (3) History of stroke Status: Chronic (4) Hypertension Status: Chronic (5) Pneumonia Status: Acute (6) UTI (urinary tract infection) Status: Acute Review of Systems Constitutional: No fever, No chills, No sweats, No weight loss, No weakness, No fatigue, No problem reported Eyes: No worsening of vision, No eye pain, No redness, No discharge, No diplopia ENT: No hearing loss, No unusual epistaxis, No nasal symptoms, No sore throat, No tinnitus, No dental problems, No trouble swallowing Respiratory: + cough, + shortness of breath, No sputum, No wheezing, No dyspnea on exertion, No dyspnea at rest, No hemoptysis Cardiac: + edema, No chest pain, No orthopnea, No PND, No claudication, No palpitations Abdomen: No pain, No nausea, No vomiting, No diarrhea, No constipation Musculoskeletal: No joint pain, No muscle pain, No swelling, No calf pain Female : No dysuria, No urinary frequency, No hematuria, No incontinence, No abnormal vaginal bleeding, No vaginal discharge Neurologic: No memory loss, No paralysis, No weakness, No numbness/tingling, No vertigo, No balance problems Psychiatric: No depression symptoms, No anhedonism, No anxiety, No insomnia, No substance abuse Heme: No abnormal bleeding/bruising, No clotting problems, No swollen lymph nodes, No night sweats Endo: No fatigue, No excessive thirst, No excessive urination Skin: No rash, No itch, No new/changing skin lesions, No color change, No bleeding Objective Vital Signs Date Time Temp Pulse Resp B/P (MAP) Pulse Ox O2 Delivery O2 Flow Rate FiO2 05/16/17 07:42 36.7 76 18 121/69 (86) 96 05/16/17 07:25 78 20 96 Nasal Cannula 3.0 05/16/17 04:02 Nasal Cannula 3.0 05/16/17 03:36 36.6 84 20 104/69 (81) 92 Nasal Cannula 2.5 05/16/17 00:00 Nasal Cannula 3.0 05/15/17 23:05 36.5 86 22 88/55 (66) 94 Nasal Cannula 2.0 05/15/17 20:00 Nasal Cannula 3.0 05/15/17 19:24 83 18 94 Nasal Cannula 3.0 05/15/17 18:50 36.4 94 18 117/65 (82) 93 Nasal Cannula 3.0 05/15/17 16:14 36.8 87 20 106/41 (62) 94 Room Air 05/15/17 15:35 Nasal Cannula 3.0 05/15/17 15:32 85 20 94 Nasal Cannula 3.0 05/15/17 12:06 Nasal Cannula 3.0 05/15/17 11:26 36.4 92 17 90/62 (71) 98 Nasal Cannula 3.0 Physical Exam General Appearance: WD/WN, no apparent distress, + pertinent finding (pleasant) Eyes: normal inspection, PERRL, EOMI, sclerae normal ENT: normal ENT inspection, hearing grossly normal, pharynx normal Neck: supple, no adenopathy, thyroid normal, no JVD, no carotid bruits, trachea midline Respiratory/Chest: chest non-tender, normal breath sounds, no respiratory distress, no accessory muscle use, + decreased breath sounds Cardiovascular: regular rate, rhythm, no edema, no gallop, no JVD, no murmur Abdomen: normal bowel sounds, non tender, soft, no organomegaly, no pulsatile mass, + pertinent finding (Jimenes in place with clean urine) Extremities: normal range of motion, non-tender, normal inspection, no pedal edema, no calf tenderness, normal capillary refill, pelvis stable Neurologic/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, no motor/sensory deficits, alert, normal mood/affect, oriented x 3 Skin: normal color, warm/dry, no rash Lymphatic: no adenopathy Laboratory Results Last 24 Hours Test 05/16/17 05:10 White Blood Count 21.36 K/uL Red Blood Count 2.91 M/uL Hemoglobin 8.8 g/dL Hematocrit 26.4 % Mean Corpuscular Volume 90.7 fL Mean Corpuscular Hemoglobin 30.2 pg Mean Corpuscular Hemoglobin Concent 33.3 g/dl Platelet Count 159 K/uL Mean Platelet Volume 10.3 fL Neutrophils (%) (Auto) 91.1 % Lymphocytes (%) (Auto) 4.6 % Monocytes (%) (Auto) 3.6 % Eosinophils (%) (Auto) 0.0 % Basophils (%) (Auto) 0.0 % Neutrophils # (Auto) 19.47 K/uL Lymphocytes # (Auto) 0.98 K/uL Monocytes # (Auto) 0.76 K/uL Eosinophils # (Auto) 0.00 K/uL Basophils # (Auto) 0.01 K/uL RDW Standard Deviation 48.2 fL RDW Coefficient of Variation 14.4 % Immature Granulocyte % (Auto) 0.7 % Immature Granulocyte # (Auto) 0.14 K/uL Toxic Granulation 1+ Dohle Bodies 1+ Sodium Level 134 mmol/L Potassium Level 4.0 mmol/L Chloride Level 102 mmol/L Carbon Dioxide Level 23 mmol/L Anion Gap 9.0 mmol/L Blood Urea Nitrogen 59 mg/dl Creatinine 2.90 mg/dl Est Creatinine Clear Calc Drug Dose 14.6 ml/min Estimated GFR () 16.8 Estimated GFR (Non- 14.5 BUN/Creatinine Ratio 20.2 Random Glucose 179 mg/dl Lactic Acid Level 1.6 mmol/L Calcium Level 7.2 mg/dl Magnesium Level 2.1 mg/dl Assessment and Plan 81 yo female with history of ischemic CVA with right sided weakness, admitted on 05/14/2017 from [facility] with fever, hypoxia, dyspnea Leukocytosis, WILBERTO on admission - Severe sepsis and bacteremia upon admission: Stable and improving With evidence of organ failure with WILBERTO, hypoxia, hypotension and encephalopathy , no evidence of shock, LA elevated at 2.5, which improved to 1.6 clearly has Proteus UTI on UA Gram-negative bacteremia, possible from the urinary source left lower lobe infiltrate continue broad spectrum antibiotics with Cefepime, Zithromax and Zyvox (chosen due to renal failure) ID following, continue current antibiotics for broad-spectrum coverage \repeat cultures drawn 05/15, follow up final results NSS at 75cc/hr, bolus if hypotensive - UTI with bacteremia: See above - Possible HCAP: patient from SNF, with left lower lung infiltration, see above , continue Prednisone, Duonebs - Acute hypoxic respiratory failure: Likely from pneumonia Possible diastolic CHF, compensated, will watch input and output watch for fluid overload, we'll discontinue IV fluid because patient tolerated diet echo shows normal EF, diastolic dysfunction -Possible acute kidney failure with unknown etiology with CKD stage III: baseline Cr 1.5-1.8, was elevated on admission at 2.9, likely prerenal patient received Lasix in the ED and again after arriving to the floor Cr up to 2.9 today, evidence of elevated anion gap acidosis from WILBERTO The differential diagnosis is include dehydration caused acute kidney failure, or kidney congestion from heart failure cause kidney failure Per history and Hospital course I feel is because of getting 2 dose of Lasix in the ED and after admission and then creatinine level getting worse Therefore I feel that acute kidney failure is because of prerenal, were not going to try diuretic for now, we'll have Doppler ultrasound studies of the kidney .if Cr gets worse tomorrow, would consult nephrology - h/o ischemic CVA: continue Plavix DVT prophylaxis: heparin q12 DNR, Do not intubate Continued [facility] stay due to: multiple IV medications needed Discharge planning: home
--- NOTE | 2017-05-16 11:37 | Progress Note ---
Subjective Date of Service: May 16, 2017. Subjective Pt evaluation today including: conversation w/ patient, conversation w/ family , physical exam, chart review, lab review pt seen in followup, daughter present. states mom is looking much better today. pt states she feels wonderful and offers no complaints. afebrile. wbc increased but also on steroids. repeat blood cultures pending. urine culture with proteus , initial blood culture with gnr 1/2 sets. all remaining ros reviewed and are negative. Problem List Medical Problems: (1) Acute renal failure Status: Acute (2) Altered mental status Status: Acute (3) History of stroke Status: Chronic (4) Hypertension Status: Chronic (5) Pneumonia Status: Acute (6) UTI (urinary tract infection) Status: Acute Objective Vital Signs Date Time Temp Pulse Resp B/P (MAP) Pulse Ox O2 Delivery O2 Flow Rate FiO2 05/16/17 11:18 86 18 95 Nasal Cannula 3.0 05/16/17 08:00 96 Nasal Cannula 3.0 05/16/17 07:42 36.7 76 18 121/69 (86) 96 05/16/17 07:25 78 20 96 Nasal Cannula 3.0 05/16/17 04:02 Nasal Cannula 3.0 05/16/17 03:36 36.6 84 20 104/69 (81) 92 Nasal Cannula 2.5 05/16/17 00:00 Nasal Cannula 3.0 05/15/17 23:05 36.5 86 22 88/55 (66) 94 Nasal Cannula 2.0 05/15/17 20:00 Nasal Cannula 3.0 05/15/17 19:24 83 18 94 Nasal Cannula 3.0 05/15/17 18:50 36.4 94 18 117/65 (82) 93 Nasal Cannula 3.0 05/15/17 16:14 36.8 87 20 106/41 (62) 94 Room Air 05/15/17 15:35 Nasal Cannula 3.0 05/15/17 15:32 85 20 94 Nasal Cannula 3.0 05/15/17 12:06 Nasal Cannula 3.0 Physical Exam General Appearance: WD/WN, no apparent distress Eyes: normal inspection Neck: supple Respiratory/Chest: lungs clear, normal breath sounds, no respiratory distress Cardiovascular: regular rate, rhythm, no edema Abdomen: non tender, soft Extremities: non-tender, normal inspection, no pedal edema Neurologic/Psychiatric: alert Skin: normal color Laboratory Results Item Value Date Time Blood Culture - Preliminary Resulted 05/14/17 0845 Blood Gram Negative Bacilli Blood Culture - Preliminary Resulted 05/14/17 0855 Blood NO GROWTH TO DATE. Urine Culture - Final Complete 05/14/17 0905 Urine,Catheterized Proteus Mirabilis Last 24 Hours Test 05/16/17 05:10 White Blood Count 21.36 K/uL Red Blood Count 2.91 M/uL Hemoglobin 8.8 g/dL Hematocrit 26.4 % Mean Corpuscular Volume 90.7 fL Mean Corpuscular Hemoglobin 30.2 pg Mean Corpuscular Hemoglobin Concent 33.3 g/dl Platelet Count 159 K/uL Mean Platelet Volume 10.3 fL Neutrophils (%) (Auto) 91.1 % Lymphocytes (%) (Auto) 4.6 % Monocytes (%) (Auto) 3.6 % Eosinophils (%) (Auto) 0.0 % Basophils (%) (Auto) 0.0 % Neutrophils # (Auto) 19.47 K/uL Lymphocytes # (Auto) 0.98 K/uL Monocytes # (Auto) 0.76 K/uL Eosinophils # (Auto) 0.00 K/uL Basophils # (Auto) 0.01 K/uL RDW Standard Deviation 48.2 fL RDW Coefficient of Variation 14.4 % Immature Granulocyte % (Auto) 0.7 % Immature Granulocyte # (Auto) 0.14 K/uL Toxic Granulation 1+ Dohle Bodies 1+ Sodium Level 134 mmol/L Potassium Level 4.0 mmol/L Chloride Level 102 mmol/L Carbon Dioxide Level 23 mmol/L Anion Gap 9.0 mmol/L Blood Urea Nitrogen 59 mg/dl Creatinine 2.90 mg/dl Est Creatinine Clear Calc Drug Dose 14.6 ml/min Estimated GFR () 16.8 Estimated GFR (Non- 14.5 BUN/Creatinine Ratio 20.2 Random Glucose 179 mg/dl Lactic Acid Level 1.6 mmol/L Calcium Level 7.2 mg/dl Magnesium Level 2.1 mg/dl Assessment and Plan (1) Gram negative septicemia Assessment & Plan: will contine cefepime pending blood culture results. repeat pending. ok to stop steroids from ID standpoint. will stop dapto. will continue to follow. (2) UTI (urinary tract infection) Continued [facility] stay due to: multiple IV medications needed Discharge planning: home Problem Qualifiers (1) UTI (urinary tract infection): Urinary tract infection type: site unspecified Hematuria presence: without hematuria Qualified Codes: N39.0 - Urinary tract infection, site not specified
--- NOTE | 2017-05-16 16:51 | DIAGNOSTIC IMAGING REPORT ---
EXAMINATION: RENAL ULTRASOUND CLINICAL HISTORY: acute on chronic kidney failure COMPARISON STUDY: None FINDINGS: The right kidney measures 9 cm. The left kidney measures 11.3 cm. There is no evidence of hydronephrosis. There are no renal masses. There is bilateral renal cortical thinning. Each renal cortex measures approximately 1 cm. The bladder was not visualized. The patient has indwelling Calle catheter. IMPRESSION : 1. Bilateral renal cortical thinning 2. No evidence of hydronephrosis Electronically signed by: Oleg Plascencia M.D. 05/16/2017 4:50 PM Dictated Date/Time: 05/16/2017 4:48 PM
[2017-05-16] MEDS: ZOLPIDEM TARTRATE 5 MG TAB PO PRN (22:09)
[2017-05-17] VITALS (11 sets, daily range): BP systolic 103–135; BP diastolic 65–74; PULSE 65–124; TEMP 36.3–36.8; O2SAT 91–96
[2017-05-17 06:38] LABS: BASO % 0.1 %; BASO ABS # 0.01 K/uL (0-0.2); HEMATOCRIT 26.5 % (37-47); IG% 0.6 %; LYMPH % 5.7 %; LYMPH ABS # 1.07 K/uL (1.2-3.4); MEAN CELL VOLUME 90.1 fL (80-100); MEAN CORPUSCULAR HEMOGLOBIN 29.9 pg (25-34); MEAN CORPUSCULAR HGB CONC 33.2 g/dl (32-36); MEAN PLATELET VOLUME 10.7 fL (7.4-10.4); MONO % 4.7 %; NEUT % 88.9 %; PLATELET COUNT 184 K/uL (130-400); RED BLOOD COUNT 2.94 M/uL (4.2-5.4); WHITE BLOOD COUNT 18.81 K/uL (4.8-10.8)
[2017-05-17 07:17] LABS: BUN/CREATININE RATIO 21.6 (10-20); CALCIUM 7.2 mg/dl (8.5-10.1); CREATININE 2.8 mg/dl (0.60-1.20); MAGNESIUM 2.3 mg/dl (1.8-2.4); POTASSIUM 4.6 mmol/L (3.5-5.1)
[2017-05-17 07:23] LABS: COMPLETE YES; ECHINOCYTES 1+; TOXIC GRANULATION 1+
[2017-05-17] MEDS: ALBUT/IPRATROP 3MG/0.5MG NEB 3 ML VIAL INH SCH ×5 (07:37→19:44)
[2017-05-17] MEDS: NSS + 20MEQ KCL 1000ML 1,000 ML IV SCH (08:50)
[2017-05-17] MEDS: KETOCONAZOLE 2% CR 15 GM TUBE EXT SCH ×2 (08:50→20:21)
[2017-05-17] MEDS: LACTOBACILLUS ACIDOPHILUS 1 GM PACK PO SCH ×3 (08:50→16:32)
[2017-05-17] MEDS: CEFEPIME IV 2000 MG in DEXTROSE 5% 100ML IV SCH (08:50)
[2017-05-17] MEDS: CHOLECALCIFEROL 1000 INTER.UNIT TAB PO SCH (08:51)
[2017-05-17] MEDS: CLOPIDOGREL BISULFATE 75 MG TAB PO SCH (08:51)
[2017-05-17] MEDS: HEPARIN SOD 5000 UNIT/0.5 ML CARP SQ SCH ×2 (09:06→20:23)
[2017-05-17 11:29] LABS: LEGIONELLA ANTIGEN NOT DETECTED (NOT DETECTED)
--- NOTE | 2017-05-17 14:41 | Progress Note ---
Subjective Date of Service: May 17, 2017. Subjective Pt evaluation today including: conversation w/ patient, physical exam, chart review, lab review pt doing well. no complaints. denies fevers/chills. no sob, no cough. no n/v/d. tolerating abx. afebrile. wbc improving. blood culture with pseudomonas, repeat negative. urine culture with proteus. remains on cefepime. all remaining ros reviewed and are negative. Problem List Medical Problems: (1) Acute renal failure Status: Acute (2) Altered mental status Status: Acute (3) History of stroke Status: Chronic (4) Hypertension Status: Chronic (5) Pneumonia Status: Acute (6) UTI (urinary tract infection) Status: Acute Objective Vital Signs Date Time Temp Pulse Resp B/P (MAP) Pulse Ox O2 Delivery O2 Flow Rate FiO2 05/17/17 13:17 65 20 92 Nasal Cannula 2.0 05/17/17 12:00 Nasal Cannula 2.0 05/17/17 11:16 36.3 90 20 127/72 (90) 92 Nasal Cannula 3.0 05/17/17 10:31 95 20 94 Nasal Cannula 2.0 05/17/17 08:12 36.3 115 20 103/67 (79) 92 Nasal Cannula 2.0 05/17/17 08:00 Nasal Cannula 2.0 05/17/17 06:55 69 22 91 Nasal Cannula 2.0 05/17/17 04:27 36.6 80 18 111/67 (82) 94 Room Air 05/17/17 04:02 Nasal Cannula 2.0 05/17/17 00:00 Nasal Cannula 2.0 05/16/17 23:45 36.6 88 18 93/55 (68) 96 Nasal Cannula 2.0 05/16/17 20:00 Nasal Cannula 3.0 05/16/17 19:37 36.8 105 18 86/48 (61) 91 Nasal Cannula 2.0 05/16/17 19:21 95 18 93 Nasal Cannula 2.0 05/16/17 16:00 96 Nasal Cannula 3.0 05/16/17 16:00 95 Nasal Cannula 3.0 05/16/17 14:52 36.5 102 24 110/51 (70) 91 Nasal Cannula 3.0 05/16/17 14:45 97 18 91 Nasal Cannula 3.0 Physical Exam General Appearance: WD/WN, no apparent distress Eyes: normal inspection, EOMI Neck: supple Respiratory/Chest: lungs clear, normal breath sounds, no respiratory distress Cardiovascular: regular rate, rhythm, no edema Abdomen: non tender, soft Extremities: non-tender, normal inspection, no pedal edema Neurologic/Psychiatric: alert Skin: normal color Laboratory Results Item Value Date Time Blood Culture - Preliminary Resulted 05/14/17 0845 Blood Pseudomonas Aeruginosa Urine Culture - Final Complete 05/14/17 0905 Urine,Catheterized Proteus Mirabilis Blood Culture - Preliminary Resulted 05/15/17 1010 Blood NO GROWTH TO DATE. Blood Culture - Preliminary Resulted 05/15/17 1020 Blood NO GROWTH TO DATE. Last 24 Hours Test 05/17/17 06:05 White Blood Count 18.81 K/uL Red Blood Count 2.94 M/uL Hemoglobin 8.8 g/dL Hematocrit 26.5 % Mean Corpuscular Volume 90.1 fL Mean Corpuscular Hemoglobin 29.9 pg Mean Corpuscular Hemoglobin Concent 33.2 g/dl Platelet Count 184 K/uL Mean Platelet Volume 10.7 fL Neutrophils (%) (Auto) 88.9 % Lymphocytes (%) (Auto) 5.7 % Monocytes (%) (Auto) 4.7 % Eosinophils (%) (Auto) 0.0 % Basophils (%) (Auto) 0.1 % Neutrophils # (Auto) 16.74 K/uL Lymphocytes # (Auto) 1.07 K/uL Monocytes # (Auto) 0.88 K/uL Eosinophils # (Auto) 0.00 K/uL Basophils # (Auto) 0.01 K/uL RDW Standard Deviation 48.8 fL RDW Coefficient of Variation 14.8 % Immature Granulocyte % (Auto) 0.6 % Immature Granulocyte # (Auto) 0.11 K/uL Toxic Granulation 1+ Echinocytes 1+ Sodium Level 136 mmol/L Potassium Level 4.6 mmol/L Chloride Level 106 mmol/L Carbon Dioxide Level 19 mmol/L Anion Gap 11.0 mmol/L Blood Urea Nitrogen 61 mg/dl Creatinine 2.80 mg/dl Est Creatinine Clear Calc Drug Dose 15.2 ml/min Estimated GFR () 17.5 Estimated GFR (Non- 15.1 BUN/Creatinine Ratio 21.6 Random Glucose 135 mg/dl Calcium Level 7.2 mg/dl Magnesium Level 2.3 mg/dl Assessment and Plan (1) Gram negative septicemia Assessment & Plan: can continue cefepime while inpt (will need for treatment of proteus uti), when stable for d/c can change to po levaquin to complete course, stop 05/29. repeat blood cultures negative. wbc improving. (2) UTI (urinary tract infection) Continued [facility] stay due to: multiple IV medications needed Discharge planning: home Problem Qualifiers (1) UTI (urinary tract infection): Urinary tract infection type: site unspecified Hematuria presence: without hematuria Qualified Codes: N39.0 - Urinary tract infection, site not specified
[2017-05-17] MEDS ORDERED: METOPROLOL TARTRATE 25 MG TAB PO STA (16:06)
--- NOTE | 2017-05-17 16:18 | Progress Note ---
Subjective Date of Service: May 17, 2017. Subjective Pt evaluation today including: conversation w/ patient, physical exam, chart review, lab review, review of studies, conversation w/ test consultant, review of inpatient medication list doing the same, however nursing staff report and he waited heart rate at 120s No fever and chills No complaint Problem List Medical Problems: (1) Acute renal failure Status: Acute (2) Altered mental status Status: Acute (3) History of stroke Status: Chronic (4) Hypertension Status: Chronic (5) Pneumonia Status: Acute (6) UTI (urinary tract infection) Status: Acute Review of Systems Constitutional: No see HPI, No fever, No chills, No sweats, No weight loss, No weakness, No fatigue, No problem reported Eyes: No see HPI, No worsening of vision, No eye pain, No redness, No discharge , No diplopia, No problem reported ENT: No see HPI, No hearing loss, No unusual epistaxis, No nasal symptoms, No sore throat, No tinnitus, No dental problems, No trouble swallowing, No problem reported Respiratory: + cough Cardiac: + edema, No see HPI, No chest pain, No orthopnea, No PND, No claudication, No palpitations, No problem reported Abdomen: No see HPI, No pain, No nausea, No vomiting, No diarrhea, No constipation, No GI bleeding, No problem reported Female : No see HPI, No dysuria, No urinary frequency, No hematuria, No incontinence, No abnormal vaginal bleeding, No vaginal discharge, No problem reported Skin: + rash (right lower extrem,iy anterior bass has red rash) Objective Vital Signs Date Time Temp Pulse Resp B/P (MAP) Pulse Ox O2 Delivery O2 Flow Rate FiO2 05/17/17 16:00 36.4 124 24 129/66 (87) 92 Nasal Cannula 2.0 05/17/17 15:14 110 20 93 Nasal Cannula 2.0 05/17/17 13:17 65 20 92 Nasal Cannula 2.0 05/17/17 12:00 Nasal Cannula 2.0 05/17/17 11:16 36.3 90 20 127/72 (90) 92 Nasal Cannula 3.0 05/17/17 10:31 95 20 94 Nasal Cannula 2.0 05/17/17 08:12 36.3 115 20 103/67 (79) 92 Nasal Cannula 2.0 05/17/17 08:00 Nasal Cannula 2.0 05/17/17 06:55 69 22 91 Nasal Cannula 2.0 05/17/17 04:27 36.6 80 18 111/67 (82) 94 Room Air 05/17/17 04:02 Nasal Cannula 2.0 05/17/17 00:00 Nasal Cannula 2.0 05/16/17 23:45 36.6 88 18 93/55 (68) 96 Nasal Cannula 2.0 05/16/17 20:00 Nasal Cannula 3.0 05/16/17 19:37 36.8 105 18 86/48 (61) 91 Nasal Cannula 2.0 05/16/17 19:21 95 18 93 Nasal Cannula 2.0 Physical Exam General Appearance: WD/WN, no apparent distress Eyes: normal inspection, PERRL, EOMI, sclerae normal ENT: normal ENT inspection, hearing grossly normal, pharynx normal Neck: supple, no adenopathy, thyroid normal, no JVD, no carotid bruits, trachea midline Respiratory/Chest: chest non-tender, normal breath sounds, no respiratory distress, no accessory muscle use, + decreased breath sounds, + crackles, + wheezing Cardiovascular: regular rate, rhythm, no edema, no gallop, no JVD, no murmur Abdomen: normal bowel sounds, non tender, soft, no organomegaly, no pulsatile mass Extremities: normal range of motion, normal inspection, no calf tenderness, normal capillary refill, pelvis stable, + swelling (2+ edema), + pertinent finding (right lower extremities red and swelling) 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, no motor/sensory deficits, alert, normal mood/affect, oriented x 3 Skin: normal color, warm/dry, no rash Lymphatic: no adenopathy Laboratory Results Last 24 Hours Test 05/17/17 06:05 White Blood Count 18.81 K/uL Red Blood Count 2.94 M/uL Hemoglobin 8.8 g/dL Hematocrit 26.5 % Mean Corpuscular Volume 90.1 fL Mean Corpuscular Hemoglobin 29.9 pg Mean Corpuscular Hemoglobin Concent 33.2 g/dl Platelet Count 184 K/uL Mean Platelet Volume 10.7 fL Neutrophils (%) (Auto) 88.9 % Lymphocytes (%) (Auto) 5.7 % Monocytes (%) (Auto) 4.7 % Eosinophils (%) (Auto) 0.0 % Basophils (%) (Auto) 0.1 % Neutrophils # (Auto) 16.74 K/uL Lymphocytes # (Auto) 1.07 K/uL Monocytes # (Auto) 0.88 K/uL Eosinophils # (Auto) 0.00 K/uL Basophils # (Auto) 0.01 K/uL RDW Standard Deviation 48.8 fL RDW Coefficient of Variation 14.8 % Immature Granulocyte % (Auto) 0.6 % Immature Granulocyte # (Auto) 0.11 K/uL Toxic Granulation 1+ Echinocytes 1+ Sodium Level 136 mmol/L Potassium Level 4.6 mmol/L Chloride Level 106 mmol/L Carbon Dioxide Level 19 mmol/L Anion Gap 11.0 mmol/L Blood Urea Nitrogen 61 mg/dl Creatinine 2.80 mg/dl Est Creatinine Clear Calc Drug Dose 15.2 ml/min Estimated GFR () 17.5 Estimated GFR (Non- 15.1 BUN/Creatinine Ratio 21.6 Random Glucose 135 mg/dl Calcium Level 7.2 mg/dl Magnesium Level 2.3 mg/dl Assessment and Plan 81 yo female with history of ischemic CVA with right sided weakness, admitted on 05/14/2017 from [facility] with fever, hypoxia, dyspnea Leukocytosis, WILBERTO on admission - Severe sepsis and bacteremia upon admission: Stable and improving With evidence of organ failure with WILBERTO, hypoxia, hypotension and encephalopathy , no evidence of shock, LA elevated at 2.5, which improved to 1.6 Proteus UTI on UA Gram-negative bacteremia, possible from the urinary source left lower lobe infiltrate Right lower extremity cellulitis has ruled out DVT upon admission on 05/15/2017 was on broad spectrum antibiotics with Cefepime, Zithromax and Zyvox (chosen due to renal failure) ID following, per recs can continue cefepime while inpt (will need for treatment of proteus uti), when stable for d/c can change to po levaquin to complete course, stop 05/29. repeat blood cultures negative. wbc improving. - UTI with bacteremia: See above - Possible HCAP: patient from SNF, with left lower lung infiltration, see above , continue Prednisone, Duonebs - Acute hypoxic respiratory failure: Likely from pneumonia - Cellulitis, continue above antibiotics Possible acute on chronic diastolic CHF, With domenico lower ext 2+ edema will watch input and output watch for fluid overload, we'll discontinue IV fluid because patient tolerated diet echo shows normal EF, diastolic dysfunction -Possible acute kidney failure with unknown etiology with CKD stage III: baseline Cr 1.5-1.8, was elevated on admission at 2.9, likely prerenal patient received Lasix in the ED and again after arriving to the floor Cr up to 2.9 today, evidence of elevated anion gap acidosis from WILBERTO The differential diagnosis is include dehydration caused acute kidney failure, or kidney congestion from heart failure cause kidney failure Per history and Hospital course I feel is because of getting 2 dose of Lasix in the ED and after admission and then creatinine level getting worse Therefore I feel that acute kidney failure is because of prerenal, were not going to try diuretic for now, Request nephrology to see Tachycardia and normal blood pressure, start a beta hernán low-dose in the follow-up - h/o ischemic CVA: continue Plavix DVT prophylaxis: heparin q12 DNR Continued [facility] stay due to: multiple IV medications needed Discharge planning: home
[2017-05-17] MEDS: METOPROLOL TARTRATE 25 MG TAB PO SCH (20:21)
[2017-05-17] MEDS: ZOLPIDEM TARTRATE 5 MG TAB PO PRN (21:55)
[2017-05-18] VITALS (12 sets, daily range): BP systolic 99–147; BP diastolic 61–71; PULSE 87–108; TEMP 36.4–37; O2SAT 90–99
[2017-05-18] MEDS: LACTOBACILLUS ACIDOPHILUS 1 GM PACK PO SCH ×4 (07:30→17:05)
[2017-05-18] MEDS: ALBUT/IPRATROP 3MG/0.5MG NEB 3 ML VIAL INH SCH ×4 (07:52→19:56)
[2017-05-18 08:16] LABS: HEMATOCRIT 31.1 % (37-47); MEAN CELL VOLUME 90.4 fL (80-100); MEAN CORPUSCULAR HEMOGLOBIN 29.9 pg (25-34); MEAN CORPUSCULAR HGB CONC 33.1 g/dl (32-36); MEAN PLATELET VOLUME 10.4 fL (7.4-10.4); PLATELET COUNT 234 K/uL (130-400); RED BLOOD COUNT 3.44 M/uL (4.2-5.4); WHITE BLOOD COUNT 21.54 K/uL (4.8-10.8)
[2017-05-18 08:42] LABS: BASO % 0.1 %; BASO ABS # 0.02 K/uL (0-0.2); BUN/CREATININE RATIO 23.8 (10-20); CALCIUM 8.7 mg/dl (8.5-10.1); COMPLETE YES; CREATININE 2.3 mg/dl (0.60-1.20); IG% 1.8 %; LYMPH % 4.6 %; LYMPH ABS # 0.99 K/uL (1.2-3.4); MAGNESIUM 2.5 mg/dl (1.8-2.4); MONO % 4.8 %; NEUT % 88.7 %; POTASSIUM 4.9 mmol/L (3.5-5.1); TOXIC GRANULATION 1+; VACUOLIZATION 1+
[2017-05-18] MEDS: CEFEPIME IV 2000 MG in DEXTROSE 5% 100ML IV SCH (08:42)
[2017-05-18] MEDS: METOPROLOL TARTRATE 25 MG TAB PO SCH ×3 (08:43→21:36)
[2017-05-18] MEDS: CLOPIDOGREL BISULFATE 75 MG TAB PO SCH ×2 (08:43→09:00)
[2017-05-18] MEDS: KETOCONAZOLE 2% CR 15 GM TUBE EXT SCH ×2 (08:43→21:27)
[2017-05-18] MEDS: CHOLECALCIFEROL 1000 INTER.UNIT TAB PO SCH ×2 (08:43→09:00)
[2017-05-18 08:44] LABS: ECHINOCYTES 1+
--- NOTE | 2017-05-18 11:26 | Progress Note ---
Subjective Date of Service: May 18, 2017. Subjective Pt evaluation today including: conversation w/ patient, conversation w/ family , physical exam, chart review, lab review, review of studies, review of inpatient medication list Voiding: jimenes catheter in place Was having very labored breathing wheezing after cleaning up Awake and alert speak full sentence Problem List Medical Problems: (1) Acute renal failure Status: Acute (2) Altered mental status Status: Acute (3) History of stroke Status: Chronic (4) Hypertension Status: Chronic (5) Pneumonia Status: Acute (6) UTI (urinary tract infection) Status: Acute Review of Systems Constitutional: + weakness, + fatigue, No fever, No chills, No sweats, No weight loss, No problem reported Eyes: No worsening of vision, No eye pain, No redness, No discharge, No diplopia ENT: No hearing loss, No unusual epistaxis, No nasal symptoms, No sore throat, No tinnitus, No dental problems, No trouble swallowing Respiratory: + cough, + wheezing, + shortness of breath, No sputum, No dyspnea on exertion, No dyspnea at rest, No hemoptysis Cardiac: + edema, No chest pain, No orthopnea, No PND, No claudication, No palpitations Abdomen: No pain, No nausea, No vomiting, No diarrhea, No constipation Musculoskeletal: No joint pain, No muscle pain, No swelling, No calf pain Female : No dysuria, No urinary frequency, No hematuria, No incontinence, No abnormal vaginal bleeding, No vaginal discharge Neurologic: No memory loss, No paralysis, No weakness, No numbness/tingling, No vertigo, No balance problems Psychiatric: No depression symptoms, No anhedonism, No anxiety, No insomnia, No substance abuse Heme: No abnormal bleeding/bruising, No clotting problems, No swollen lymph nodes, No night sweats Endo: No fatigue, No excessive thirst, No excessive urination Skin: No rash, No itch, No new/changing skin lesions, No color change, No bleeding Objective Vital Signs Date Time Temp Pulse Resp B/P (MAP) Pulse Ox O2 Delivery O2 Flow Rate FiO2 05/18/17 09:32 103 18 93 Nasal Cannula 2.0 05/18/17 08:00 90 Nasal Cannula 3.0 05/18/17 07:15 87 18 92 Nasal Cannula 2.0 05/18/17 07:03 36.6 108 17 112/61 (78) 90 Nasal Cannula 3.0 05/18/17 05:47 Nasal Cannula 2.0 05/18/17 04:31 36.6 88 18 147/65 (92) 91 Nasal Cannula 05/18/17 00:01 Nasal Cannula 2.0 05/17/17 23:44 36.7 91 18 135/65 (88) 93 Nasal Cannula 05/17/17 20:00 Nasal Cannula 2.0 05/17/17 19:45 88 18 94 Nasal Cannula 2.0 05/17/17 19:24 36.8 94 18 114/74 (87) 96 05/17/17 16:00 Nasal Cannula 2.0 05/17/17 16:00 36.4 124 24 129/66 (87) 92 Nasal Cannula 2.0 05/17/17 15:14 110 20 93 Nasal Cannula 2.0 05/17/17 13:17 65 20 92 Nasal Cannula 2.0 05/17/17 12:00 Nasal Cannula 2.0 Physical Exam General Appearance: WD/WN, no apparent distress, + obese Eyes: normal inspection, PERRL, EOMI, sclerae normal ENT: normal ENT inspection, hearing grossly normal, pharynx normal Neck: supple, no adenopathy, thyroid normal, no JVD, no carotid bruits, trachea midline Respiratory/Chest: normal breath sounds, no respiratory distress, no accessory muscle use, + decreased breath sounds, + wheezing Cardiovascular: regular rate, rhythm, no edema, no gallop, no JVD, no murmur Abdomen: normal bowel sounds, non tender, soft, no organomegaly, no pulsatile mass Extremities: normal inspection, no calf tenderness, normal capillary refill, + swelling, + pertinent finding (bilateral lower extremity 1+ swelling, right lower extremity rash is better) Neurologic/Psychiatric: alert, normal mood/affect, oriented x 3, + motor weakness (right side is paralyzed which is not new) Skin: normal color, warm/dry, no rash Lymphatic: no adenopathy Laboratory Results Last 24 Hours Test 05/18/17 08:05 White Blood Count 21.54 K/uL Red Blood Count 3.44 M/uL Hemoglobin 10.3 g/dL Hematocrit 31.1 % Mean Corpuscular Volume 90.4 fL Mean Corpuscular Hemoglobin 29.9 pg Mean Corpuscular Hemoglobin Concent 33.1 g/dl Platelet Count 234 K/uL Mean Platelet Volume 10.4 fL Neutrophils (%) (Auto) 88.7 % Lymphocytes (%) (Auto) 4.6 % Monocytes (%) (Auto) 4.8 % Eosinophils (%) (Auto) 0.0 % Basophils (%) (Auto) 0.1 % Neutrophils # (Auto) 19.10 K/uL Lymphocytes # (Auto) 0.99 K/uL Monocytes # (Auto) 1.04 K/uL Eosinophils # (Auto) 0.00 K/uL Basophils # (Auto) 0.02 K/uL RDW Standard Deviation 49.6 fL RDW Coefficient of Variation 15.1 % Immature Granulocyte % (Auto) 1.8 % Immature Granulocyte # (Auto) 0.39 K/uL Toxic Granulation 1+ Toxic Vacuolation 1+ Echinocytes 1+ Sodium Level 138 mmol/L Potassium Level 4.9 mmol/L Chloride Level 106 mmol/L Carbon Dioxide Level 19 mmol/L Anion Gap 13.0 mmol/L Blood Urea Nitrogen 55 mg/dl Creatinine 2.30 mg/dl Est Creatinine Clear Calc Drug Dose 18.5 ml/min Estimated GFR () 22.2 Estimated GFR (Non- 19.2 BUN/Creatinine Ratio 23.8 Random Glucose 248 mg/dl Calcium Level 8.7 mg/dl Magnesium Level 2.5 mg/dl Assessment and Plan 81 yo female with history of ischemic CVA with right sided weakness, admitted on 05/14/2017 from [facility] with fever, hypoxia, dyspnea Leukocytosis, WILBERTO on admission - Severe sepsis and bacteremia upon admission: Stable and improving Worsening leukocytosis, possible from steroid use With evidence of organ failure with WILBERTO, hypoxia, hypotension and encephalopathy , no evidence of shock, LA elevated at 2.5, which improved to 1.6 Proteus UTI on UA Pseudomonas bacteremia bacteremia, possible from the urinary source left lower lobe infiltrate Right lower extremity cellulitis has ruled out DVT upon admission on 05/15/2017 , cellulitis looks improved was on broad spectrum antibiotics with Cefepime, Zithromax and Zyvox (chosen due to renal failure) ID following, per recs can continue cefepime while inpt (will need for treatment of proteus uti), when stable for d/c can change to po levaquin to complete course, stop 05/29. repeat blood cultures negative. Possible HCAP: patient from SNF, with left lower lung infiltration, see above , continue Prednisone, Duonebs Acute hypoxic respiratory failure upon admission: Likely from pneumonia Obvious wheezing and pneumonia, possible from cleaning up, I revisited her, she calm down wheezing is better, no acute distress The differential diagnosis include pneumonia, acute on chronic diastolic CHF exacerbation with Echo shows diastolic dysfunction, other differential diagnosis include acute PE I'm checking cardiac enzyme troponin, BNP, check VQ scan to rule out PE ( not able to do chest CT to rule out PE because of acute on chronic kidney failure) UTI with bacteremia: See above Cellulitis, continue above antibiotics Possible acute on chronic diastolic CHF, With domenico lower ext 2+ edema will watch input and output watch for fluid overload, discontinued IV fluid because patient tolerated diet echo shows normal EF, diastolic dysfunction Follow-up BNP, and chest x-ray Restart home dose of Lasix by mouth Possible acute kidney failure with unknown etiology with CKD stage III: baseline Cr 1.5-1.8, was elevated on admission at 2.9, likely prerenal patient received Lasix in the ED and again after arriving to the floor Cr up to 2.9 today, evidence of elevated anion gap acidosis from WILBERTO The differential diagnosis is include dehydration caused acute kidney failure, or kidney congestion from heart failure cause kidney failure Per history and Hospital course I feel is because of getting 2 dose of Lasix in the ED and after admission and then creatinine level getting worse Therefore I feel that acute kidney failure is because of prerenal, will not going to try diuretic for now, Creatinine improved today, I will slowly restart home dose of Lasix Discussed with manager budget Tachycardia and normal blood pressure, Improved Continue beta hernán - h/o ischemic CVA: continue Plavix DVT prophylaxis: heparin q12 DNR Discussed with patient's daughter, answered all questions Continued [facility] stay due to: multiple IV medications needed Discharge planning: home
[2017-05-18] MEDS: HEPARIN SOD 5000 UNIT/0.5 ML CARP SQ SCH ×2 (12:40→21:33)
--- NOTE | 2017-05-18 14:05 | Progress Note ---
Subjective Date of Service: May 18, 2017. Subjective pt tolerating abx. repeat cultures negative, remains afebrile. no overnight events. wbc increasing, remains on steroids Problem List Medical Problems: (1) Acute renal failure Status: Acute (2) Altered mental status Status: Acute (3) History of stroke Status: Chronic (4) Hypertension Status: Chronic (5) Pneumonia Status: Acute (6) UTI (urinary tract infection) Status: Acute Objective Vital Signs Date Time Temp Pulse Resp B/P (MAP) Pulse Ox O2 Delivery O2 Flow Rate FiO2 05/18/17 12:00 Nasal Cannula 3.0 05/18/17 12:00 36.4 18 99/66 (77) 91 Nasal Cannula 3.0 05/18/17 11:40 106 20 92 Nasal Cannula 2.0 05/18/17 09:32 103 18 93 Nasal Cannula 2.0 05/18/17 08:00 90 Nasal Cannula 3.0 05/18/17 07:15 87 18 92 Nasal Cannula 2.0 05/18/17 07:03 36.6 108 17 112/61 (78) 90 Nasal Cannula 3.0 05/18/17 05:47 Nasal Cannula 2.0 05/18/17 04:31 36.6 88 18 147/65 (92) 91 Nasal Cannula 05/18/17 00:01 Nasal Cannula 2.0 05/17/17 23:44 36.7 91 18 135/65 (88) 93 Nasal Cannula 05/17/17 20:00 Nasal Cannula 2.0 05/17/17 19:45 88 18 94 Nasal Cannula 2.0 05/17/17 19:24 36.8 94 18 114/74 (87) 96 05/17/17 16:00 Nasal Cannula 2.0 05/17/17 16:00 36.4 124 24 129/66 (87) 92 Nasal Cannula 2.0 05/17/17 15:14 110 20 93 Nasal Cannula 2.0 Laboratory Results Last 24 Hours Test 05/18/17 08:05 05/18/17 11:13 05/18/17 11:31 White Blood Count 21.54 K/uL Red Blood Count 3.44 M/uL Hemoglobin 10.3 g/dL Hematocrit 31.1 % Mean Corpuscular Volume 90.4 fL Mean Corpuscular Hemoglobin 29.9 pg Mean Corpuscular Hemoglobin Concent 33.1 g/dl Platelet Count 234 K/uL Mean Platelet Volume 10.4 fL Neutrophils (%) (Auto) 88.7 % Lymphocytes (%) (Auto) 4.6 % Monocytes (%) (Auto) 4.8 % Eosinophils (%) (Auto) 0.0 % Basophils (%) (Auto) 0.1 % Neutrophils # (Auto) 19.10 K/uL Lymphocytes # (Auto) 0.99 K/uL Monocytes # (Auto) 1.04 K/uL Eosinophils # (Auto) 0.00 K/uL Basophils # (Auto) 0.02 K/uL RDW Standard Deviation 49.6 fL RDW Coefficient of Variation 15.1 % Immature Granulocyte % (Auto) 1.8 % Immature Granulocyte # (Auto) 0.39 K/uL Toxic Granulation 1+ Toxic Vacuolation 1+ Echinocytes 1+ Sodium Level 138 mmol/L Potassium Level 4.9 mmol/L Chloride Level 106 mmol/L Carbon Dioxide Level 19 mmol/L Anion Gap 13.0 mmol/L Blood Urea Nitrogen 55 mg/dl Creatinine 2.30 mg/dl Est Creatinine Clear Calc Drug Dose 18.5 ml/min Estimated GFR () 22.2 Estimated GFR (Non- 19.2 BUN/Creatinine Ratio 23.8 Random Glucose 248 mg/dl Calcium Level 8.7 mg/dl Magnesium Level 2.5 mg/dl Creatine Kinase MB Ratio Creatine Kinase MB 3.1 ng/ml Troponin I 0.765 ng/ml Pro-B-Type Natriuretic Peptide 16716 pg/ml Assessment and Plan (1) Gram negative septicemia Assessment & Plan: can continue cefepime while inpt (will need for treatment of proteus uti), when stable for d/c can change to po levaquin to complete course, stop 05/29. repeat blood cultures negative. wbc improving. steroids likely cause for increased wbc. (2) UTI (urinary tract infection) Continued [facility] stay due to: multiple IV medications needed Discharge planning: home Problem Qualifiers (1) UTI (urinary tract infection): Urinary tract infection type: site unspecified Hematuria presence: without hematuria Qualified Codes: N39.0 - Urinary tract infection, site not specified
--- NOTE | 2017-05-18 14:17 | DIAGNOSTIC IMAGING REPORT ---
NUCLEAR PULMONARY PERFUSION SCAN CLINICAL HISTORY: Wheezing. COMPARISON STUDY: Chest x-ray dated 05/15/2017. TECHNIQUE: A nuclear perfusion scan is performed following the IV administration of 5.6 mCi of technetium 99m MAA. The images are acquired in the anterior, posterior, and oblique projections. The patient was unable to tolerate a ventilatory scan. FINDINGS: A chest x-ray performed 05/15/2017 shows cardiomegaly with evidence of congestive failure. There is a left pleural effusion Perfusion is markedly heterogeneous. There are segmental perfusion defects identified in both lungs. IMPRESSION: 1. There are segmental perfusion defects identified in both lungs. This is nonspecific in the setting of pulmonary edema and may be related to congestive failure. Pulmonary embolus could also have this appearance and is not excluded. 2. The patient could not tolerate a ventilatory scan. Electronically signed by: Lance Cornelius M.D. 05/18/2017 2:16 PM Dictated Date/Time: 05/18/2017 2:12 PM
--- NOTE | 2017-05-18 14:51 | Nephrology Consultation ---
Nephrology Consultation Date & Providers Date of Consultation: May 18, 2017. Primary Care Provider: Aicha Blair Referring Provider: Reason for Consultation WILBERTO History of Present Illness Mary Ashley is an 81-year-old female who was seen and evaluated in her hospital room this morning. Plan of care was discussed with Dr. Elaine. The patient was evaluated with her daughter at the bedside. Consultation was requested for acute kidney injury. Baseline creatinine is approximately 1.51.8 milligram/deciliter. The patient is not followed by a publicity manager. She was admitted to [facility] on May 14, 2017 with sepsis due to gram-negative bacteremia and proteus UTI. 1/2 blood cultures on admission growing Pseudomonas aeruginosa. Blood cultures cleared within 24 hours. Patient remains on therapy with cefepime. Creatinine was 2.4 milligram/deciliter on admission. Creatinine peaked at 2.9 milligram/deciliter on May 16. She has been nonoliguric. creatinine improved to 2.3 milligram/ deciliter this morning. Patient's bicarb is down to 19. Renal ultrasound documented a 9 centimeter right kidney and 11.3 centimeter left kidney. There is some cortical atrophy that can be noted. There is no evidence of hydronephrosis. Urinalysis documented greater than 30 WBCs with a culture growing Proteus. There was 0-5 red blood cells as well as hyaline casts on microscopy. Patient was notably dyspneic this morning. Conversation was limited due to expressive aphasia as a residual effect of CV in the past. She denied any chest pain or palpitations. No fevers. Chest x-ray identified mild pulmonary edema. Transthoracic echocardiogram documented type 1 diastolic dysfunction with mild concentric LVH. IVC suggestive of hypervolemia. Past Medical/Surgical History Medical: History of CVA with residual expressive aphasia, hypertension, diabetes mellitus type 2, chronic kidney disease class 3, history of breast cancer Surgical: Modified radical mastectomy left breast Allergies Coded Allergies: No Known Allergies (Verified , 05/14/17) Inpatient Medications Current Inpatient Medications Medications (Trade) Dose Ordered Sig/Ministerio Route Start Time Stop Time Status Last Admin Dose Admin Acetaminophen (Tylenol Tab) 650 mg Q4H PRN PO 05/14/17 12:00 06/13/17 11:59 Al Hydrox/Mg Hydrox/Simethicone (Maalox Max Susp) 15 ml Q4H PRN PO 05/14/17 12:00 06/13/17 11:59 Magnesium Hydroxide (Milk Of Magnesia Susp) 30 ml Q12H PRN PO 05/14/17 12:00 06/13/17 11:59 Zolpidem Tartrate (Ambien Tab) 5 mg HSZ PRN PO 05/14/17 12:00 06/13/17 11:59 05/17/17 21:55 5 MG Polyethylene (Miralax Powder Packet) 17 gm DAILY PRN PO 05/14/17 12:00 06/13/17 11:59 Ketoconazole (Nizoral 2% Crm) 2 appln Q12 EXT 05/14/17 21:00 05/24/17 20:59 05/18/17 08:43 2 APPLN Lactobacillus Acidophilus (Lactinex Granules Pack) 1 gm TIDM PO 05/14/17 16:45 06/13/17 16:44 05/18/17 12:40 1 GM Bisacodyl (Dulcolax Supp) 10 mg DAILY PRN GA 05/14/17 12:15 06/13/17 12:14 Clopidogrel Bisulfate (plAVix TAB) 75 mg DAILY PO 05/15/17 09:00 06/14/17 08:59 05/17/17 08:51 75 MG Sodium Biphosphate/ Sodium Phosphate (Fleet Enema) 200 ml DAILY PRN GA 05/14/17 12:15 06/13/17 12:14 Cholecalciferol (Vitamin D Tab) 2,000 inter.unit QAM PO 05/15/17 09:00 06/14/17 08:59 05/17/17 08:51 2,000 INTER.UNIT Albuterol/ Ipratropium (Duoneb) 3 ml QIDR INH 05/15/17 12:00 06/14/17 11:59 05/18/17 12:03 3 ML Albuterol/ Ipratropium (Duoneb) 3 ml Q2R PRN INH 05/15/17 09:00 06/14/17 08:59 05/18/17 09:32 3 ML Prednisone (PredniSONE TAB) 20 mg QAM PO 05/16/17 09:00 06/15/17 08:59 05/17/17 08:51 20 MG Cefepime HCl (Consult) 1 ea UD PRN N/A 05/15/17 13:30 06/14/17 13:29 Cefepime HCl 2000 mg/Dextrose 112.5 ml @ 225 mls/hr Q24H IV 05/16/17 08:00 05/23/17 23:59 05/18/17 08:42 225 MLS/HR Heparin Sodium (Porcine) (Heparin Sq 5000 Unit/0.5ml) 5,000 unit Q12 SQ 05/15/17 21:00 06/14/17 20:59 05/18/17 12:40 5,000 UNIT Metoprolol Tartrate (Lopressor Tab) 12.5 mg BID PO 05/17/17 21:00 06/16/17 20:59 05/17/17 20:21 12.5 MG Furosemide (Lasix Tab) 20 mg QAM PO 05/19/17 09:00 06/18/17 08:59 Family History No pertinent family history Social History Smoking Status: Former Smoker Drug Use: none Marital Status: Housing Status: lives with family Occupation: retired Review of Systems A complete review of systems was complicated by expressive aphasia. All other systems are negative. Physical Exam Date Time Temp Pulse Resp B/P (MAP) Pulse Ox O2 Delivery O2 Flow Rate FiO2 05/18/17 12:00 Nasal Cannula 3.0 05/18/17 12:00 36.4 18 99/66 (77) 91 Nasal Cannula 3.0 05/18/17 11:40 106 20 92 Nasal Cannula 2.0 05/18/17 09:32 103 18 93 Nasal Cannula 2.0 05/18/17 08:00 90 Nasal Cannula 3.0 05/18/17 07:15 87 18 92 Nasal Cannula 2.0 05/18/17 07:03 36.6 108 17 112/61 (78) 90 Nasal Cannula 3.0 05/18/17 05:47 Nasal Cannula 2.0 05/18/17 04:31 36.6 88 18 147/65 (92) 91 Nasal Cannula 05/18/17 00:01 Nasal Cannula 2.0 05/17/17 23:44 36.7 91 18 135/65 (88) 93 Nasal Cannula 05/17/17 20:00 Nasal Cannula 2.0 05/17/17 19:45 88 18 94 Nasal Cannula 2.0 6/20/17 19:24 36.8 94 18 114/74 (87) 96 05/17/17 16:00 Nasal Cannula 2.0 05/17/17 16:00 36.4 124 24 129/66 (87) 92 Nasal Cannula 2.0 05/17/17 15:14 110 20 93 Nasal Cannula 2.0 General Appearance: WD/WN, no apparent distress Head: normocephalic, atraumatic Eyes: normal inspection, sclerae normal ENT: normal ENT inspection, pharynx normal Neck: supple, + JVD (Increased JVP) Respiratory/Chest: + respiratory distress (Mild), + decreased breath sounds, + wheezing Cardiovascular: no gallop, no murmur, + tachycardia Abdomen/GI: non tender, soft Genitourinary - Female: + pertinent finding (Calle draining yellow urine) Extremities/Musculoskelatal: + pertinent finding (Right lower extremity edema as well as tenderness) Neurologic/Psych: alert Laboratory Results Last 24 Hours Test 05/18/17 08:05 05/18/17 11:13 05/18/17 11:31 White Blood Count 21.54 K/uL Red Blood Count 3.44 M/uL Hemoglobin 10.3 g/dL Hematocrit 31.1 % Mean Corpuscular Volume 90.4 fL Mean Corpuscular Hemoglobin 29.9 pg Mean Corpuscular Hemoglobin Concent 33.1 g/dl Platelet Count 234 K/uL Mean Platelet Volume 10.4 fL Neutrophils (%) (Auto) 88.7 % Lymphocytes (%) (Auto) 4.6 % Monocytes (%) (Auto) 4.8 % Eosinophils (%) (Auto) 0.0 % Basophils (%) (Auto) 0.1 % Neutrophils # (Auto) 19.10 K/uL Lymphocytes # (Auto) 0.99 K/uL Monocytes # (Auto) 1.04 K/uL Eosinophils # (Auto) 0.00 K/uL Basophils # (Auto) 0.02 K/uL RDW Standard Deviation 49.6 fL RDW Coefficient of Variation 15.1 % Immature Granulocyte % (Auto) 1.8 % Immature Granulocyte # (Auto) 0.39 K/uL Toxic Granulation 1+ Toxic Vacuolation 1+ Echinocytes 1+ Sodium Level 138 mmol/L Potassium Level 4.9 mmol/L Chloride Level 106 mmol/L Carbon Dioxide Level 19 mmol/L Anion Gap 13.0 mmol/L Blood Urea Nitrogen 55 mg/dl Creatinine 2.30 mg/dl Est Creatinine Clear Calc Drug Dose 18.5 ml/min Estimated GFR () 22.2 Estimated GFR (Non- 19.2 BUN/Creatinine Ratio 23.8 Random Glucose 248 mg/dl Calcium Level 8.7 mg/dl Magnesium Level 2.5 mg/dl Creatine Kinase MB Ratio Creatine Kinase MB 3.1 ng/ml Troponin I 0.765 ng/ml Pro-B-Type Natriuretic Peptide 70962 pg/ml Impression (1) Acute renal insufficiency (2) Gram negative septicemia (3) Diastolic CHF, acute (4) UTI (urinary tract infection) (5) Hypertension (6) Type 2 diabetes mellitus without complications Mary is an 81-year-old female with acute on chronic renal insufficiency. Laboratory studies showing early evidence of renal recovery. A KI consistent with ATN in the setting of gram-negative sepsis and urinary tract infection. Patient is clinically responded to cefepime. She does have some respiratory difficulty this morning as well as evidence of acute on chronic diastolic congestive heart failure. It would be appropriate at this time to maintain a slightly negative fluid balance. Patient has been restarted on furosemide this morning. She received 20 mg. Telmisartan and HCTZ have been held. Recommendations -- Continue furosemide to encourage slightly negative fluid balance -- Document I/O's -- Hold telmisartan -- Medications appropriately dosed for renal function -- Repeat metabolic profile tomorrow AM
[2017-05-18] MEDS ORDERED: NURSING VERBAL MED ORDER ONE (17:15)
[2017-05-18] MEDS ORDERED: FUROSEMIDE 40 MG/4 ML VIAL IV STA (17:51)
[2017-05-18] MEDS ORDERED: PHARMACY GLYCEMIC MGMT CONSULT PRN (18:00)
[2017-05-18] MEDS ORDERED: DEXTROSE 50% 50 ML SYR IV PRN (19:15)
[2017-05-18] MEDS ORDERED: GLUCOSE 40% GEL 15 GM TUBE PO PRN (19:15)
[2017-05-18] MEDS ORDERED: GLUCOSE 10 TABS/TUBE PO PRN (19:15)
[2017-05-18] MEDS ORDERED: GLUCAGON FOR INJ 1 MG VIAL SQ PRN (19:15)
[2017-05-18] MEDS ORDERED: INSULIN GLARGINE SOLOSTAR 100 UNITS/ML 3 ML PEN SC ONE (21:00)
[2017-05-18] MEDS: INSULIN ASPART 100 UNITS/ML 3 ML PEN SC SCH (21:36)
[2017-05-19] VITALS (12 sets, daily range): BP systolic 98–157; BP diastolic 47–68; PULSE 79–108; TEMP 36.3–37.1; O2SAT 90–95
[2017-05-19] MEDS: INSULIN ASPART 100 UNITS/ML 3 ML PEN SC SCH ×6 (00:18→20:48)
[2017-05-19 06:05] LABS: BASO % 0.1 %; BASO ABS # 0.01 K/uL (0-0.2); COMPLETE YES; EOS % 0.1 %; HEMATOCRIT 28.6 % (37-47); IG% 1.5 %; LYMPH % 8.3 %; LYMPH ABS # 1.31 K/uL (1.2-3.4); MEAN CELL VOLUME 90.2 fL (80-100); MEAN CORPUSCULAR HEMOGLOBIN 29.7 pg (25-34); MEAN CORPUSCULAR HGB CONC 32.9 g/dl (32-36); MEAN PLATELET VOLUME 10.5 fL (7.4-10.4); MONO % 6.5 %; NEUT % 83.5 %; PLATELET COUNT 197 K/uL (130-400); RED BLOOD COUNT 3.17 M/uL (4.2-5.4); WHITE BLOOD COUNT 15.84 K/uL (4.8-10.8)
[2017-05-19 06:35] LABS: BUN/CREATININE RATIO 26.5 (10-20); CALCIUM 8.7 mg/dl (8.5-10.1); CREATININE 2.2 mg/dl (0.60-1.20); MAGNESIUM 2.5 mg/dl (1.8-2.4); POTASSIUM 4.5 mmol/L (3.5-5.1)
[2017-05-19] MEDS ORDERED: ONDANSETRON INJ 2 MG/ML 2 ML VIAL IV STA (07:25)
[2017-05-19] MEDS ORDERED: ONDANSETRON INJ 2 MG/ML 2 ML VIAL IV PRN (07:30)
[2017-05-19] MEDS: ALBUT/IPRATROP 3MG/0.5MG NEB 3 ML VIAL INH SCH ×4 (07:36→19:44)
--- NOTE | 2017-05-19 07:55 | DIAGNOSTIC IMAGING REPORT ---
KUB HISTORY: Nausea. Vomiting. COMPARISON: None. FINDINGS: Mildly distended gas-filled stomach. There are nondistended gas-filled loops of large and small bowel seen throughout the abdomen. Left basilar densities and a trace left pleural effusion. No renal calculi. No ureteral calculi. No pneumoperitoneum or pneumatosis. IMPRESSION: 1. Mildly distended gas-filled stomach. 2. No dilated loops of large or small bowel. 3. Left basilar densities and a small left pleural effusion persists. Electronically signed by: Kenan Camarillo M.D. 05/19/2017 7:54 AM Dictated Date/Time: 05/19/2017 7:52 AM
[2017-05-19] MEDS ORDERED: METOPROLOL TARTRATE 1 MG/ML VIAL ONE (07:57)
[2017-05-19] MEDS: LACTOBACILLUS ACIDOPHILUS 1 GM PACK PO SCH ×3 (08:01→16:45)
[2017-05-19] MEDS: CEFEPIME IV 2000 MG in DEXTROSE 5% 100ML IV SCH (08:53)
[2017-05-19] MEDS: KETOCONAZOLE 2% CR 15 GM TUBE EXT SCH ×2 (08:56→20:35)
[2017-05-19] MEDS: FUROSEMIDE INJ 40 MG in SYRINGE 0 ML IV SCH (08:56)
[2017-05-19] MEDS: CLOPIDOGREL BISULFATE 75 MG TAB PO SCH (08:57)
[2017-05-19] MEDS: CHOLECALCIFEROL 1000 INTER.UNIT TAB PO SCH (08:57)
[2017-05-19] MEDS: HEPARIN SOD 5000 UNIT/0.5 ML CARP SQ SCH ×2 (08:59→20:34)
[2017-05-19] MEDS ORDERED: FUROSEMIDE 20 MG TAB PO SCH (09:00)
--- NOTE | 2017-05-19 10:39 | Nephrology Progress Note ---
Nephrology Progress Note Date of Service May 19, 2017. Chief Complaint WILBERTO Subjective No acute events overnight. No complaints this morning. Denies pain. Dyspnea improved. No fevers or chills. Review of Systems A complete review of systems was performed. Pertinent positives are noted above. All other systems are negative. Vital Signs Last 8 Hrs Date Time Temp Pulse Resp B/P (MAP) Pulse Ox O2 Delivery O2 Flow Rate FiO2 05/19/17 07:56 36.4 108 20 102/64 (77) 90 Nasal Cannula 3.0 05/19/17 07:12 93 20 95 Nasal Cannula 3.0 05/19/17 04:37 36.7 94 18 98/66 (77) 95 Nasal Cannula 05/19/17 04:00 Nasal Cannula 2.0 Last Recorded Weight Weight (Kilograms): 76.900 Physical Exam General Appearance: WD/WN, no apparent distress Head: normocephalic, atraumatic Eyes: normal inspection, sclerae normal ENT: normal ENT inspection, pharynx normal Neck: supple, no JVD Respiratory/Chest: lungs clear, no respiratory distress, no accessory muscle use Cardiovascular: regular rate, rhythm, no murmur Abdomen/GI: non tender, soft Extremities/Musculoskelatal: normal inspection, no pedal edema Neurologic/Psych: alert, oriented x 3 Family History No pertinent family history Social History Smoking Status: Never smoker Drug Use: none Marital Status: Housing Status: lives with family Occupation: retired Laboratory Results Past 24 Hours 05/19/17 05:30 Red Blood Count 3.17, Mean Corpuscular Volume 90.2, Mean Corpuscular Hemoglobin 29.7, Mean Corpuscular Hemoglobin Concent 32.9, Mean Platelet Volume 10.5, Neutrophils (%) (Auto) 83.5, Lymphocytes (%) (Auto) 8.3, Monocytes (%) (Auto) 6.5, Eosinophils (%) (Auto) 0.1, Basophils (%) (Auto) 0.1, Neutrophils # (Auto) 13.24, Lymphocytes # (Auto) 1.31, Monocytes # (Auto) 1.03, Eosinophils # (Auto) 0.02, Basophils # (Auto) 0.01 05/19/17 05:30 Test 05/18/17 11:13 05/18/17 11:31 6/21/17 16:24 05/18/17 19:14 Creatine Kinase MB Ratio (0-3.0) Creatine Kinase MB 3.1 ng/ml (0.5-3.6) Troponin I 0.765 ng/ml (0-0.045) 0.677 ng/ml (0-0.045) Pro-B-Type Natriuretic Peptide 73863 pg/ml (0-1800) Bedside Glucose 258 mg/dl (70-90) Test 05/18/17 20:21 05/19/17 00:00 05/19/17 04:05 05/19/17 05:30 Bedside Glucose 273 mg/dl (70-90) 238 mg/dl (70-90) 166 mg/dl (70-90) White Blood Count 15.84 K/uL (4.8-10.8) Red Blood Count 3.17 M/uL (4.2-5.4) Hemoglobin 9.4 g/dL (12.0-16.0) Hematocrit 28.6 % (37-47) Mean Corpuscular Volume 90.2 fL (80-100) Mean Corpuscular Hemoglobin 29.7 pg (25-34) Mean Corpuscular Hemoglobin Concent 32.9 g/dl (32-36) Platelet Count 197 K/uL (130-400) Mean Platelet Volume 10.5 fL (7.4-10.4) Neutrophils (%) (Auto) 83.5 % Lymphocytes (%) (Auto) 8.3 % Monocytes (%) (Auto) 6.5 % Eosinophils (%) (Auto) 0.1 % Basophils (%) (Auto) 0.1 % Neutrophils # (Auto) 13.24 K/uL (1.4-6.5) Lymphocytes # (Auto) 1.31 K/uL (1.2-3.4) Monocytes # (Auto) 1.03 K/uL (0.11-0.59) Eosinophils # (Auto) 0.02 K/uL (0-0.5) Basophils # (Auto) 0.01 K/uL (0-0.2) RDW Standard Deviation 49.6 fL (36.4-46.3) RDW Coefficient of Variation 15.1 % (11.5-14.5) Immature Granulocyte % (Auto) 1.5 % Immature Granulocyte # (Auto) 0.23 K/uL (0.00-0.02) Anion Gap 9.0 mmol/L (3-11) Est Creatinine Clear Calc Drug Dose 19.4 ml/min Estimated GFR () 23.4 Estimated GFR (Non- 20.2 BUN/Creatinine Ratio 26.5 (10-20) Calcium Level 8.7 mg/dl (8.5-10.1) Magnesium Level 2.5 mg/dl (1.8-2.4) Test 05/19/17 06:31 Bedside Glucose 152 mg/dl (70-90) Allergies Coded Allergies: No Known Allergies (Verified , 05/14/17) Medications Current Inpatient Medications Medications (Trade) Dose Ordered Sig/Ministerio Route Start Time Stop Time Status Last Admin Dose Admin Acetaminophen (Tylenol Tab) 650 mg Q4H PRN PO 05/14/17 12:00 06/13/17 11:59 Al Hydrox/Mg Hydrox/Simethicone (Maalox Max Susp) 15 ml Q4H PRN PO 05/14/17 12:00 06/13/17 11:59 Magnesium Hydroxide (Milk Of Magnesia Susp) 30 ml Q12H PRN PO 05/14/17 12:00 06/13/17 11:59 Zolpidem Tartrate (Ambien Tab) 5 mg HSZ PRN PO 05/14/17 12:00 06/13/17 11:59 05/17/17 21:55 5 MG Polyethylene (Miralax Powder Packet) 17 gm DAILY PRN PO 05/14/17 12:00 06/13/17 11:59 Ketoconazole (Nizoral 2% Crm) 2 appln Q12 EXT 05/14/17 21:00 05/24/17 20:59 05/19/17 08:56 2 APPLN Lactobacillus Acidophilus (Lactinex Granules Pack) 1 gm TIDM PO 05/14/17 16:45 06/13/17 16:44 05/19/17 08:01 1 GM Bisacodyl (Dulcolax Supp) 10 mg DAILY PRN NE 05/14/17 12:15 06/13/17 12:14 Clopidogrel Bisulfate (plAVix TAB) 75 mg DAILY PO 05/15/17 09:00 06/14/17 08:59 05/19/17 08:57 75 MG Sodium Biphosphate/ Sodium Phosphate (Fleet Enema) 200 ml DAILY PRN NE 05/14/17 12:15 06/13/17 12:14 Cholecalciferol (Vitamin D Tab) 2,000 inter.unit QAM PO 05/15/17 09:00 06/14/17 08:59 05/19/17 08:57 2,000 INTER.UNIT Albuterol/ Ipratropium (Duoneb) 3 ml QIDR INH 05/15/17 12:00 06/14/17 11:59 05/19/17 07:36 3 ML Albuterol/ Ipratropium (Duoneb) 3 ml Q2R PRN INH 05/15/17 09:00 06/14/17 08:59 05/18/17 09:32 3 ML Cefepime HCl (Consult) 1 ea UD PRN N/A 05/15/17 13:30 06/14/17 13:29 Cefepime HCl 2000 mg/Dextrose 112.5 ml @ 225 mls/hr Q24H IV 05/16/17 08:00 05/23/17 23:59 05/19/17 08:53 225 MLS/HR Heparin Sodium (Porcine) (Heparin Sq 5000 Unit/0.5ml) 5,000 unit Q12 SQ 05/15/17 21:00 06/14/17 20:59 05/19/17 08:59 5,000 UNIT Miscellaneous Information (Consult Glycemic Management Pharmacy) 1 ea UD PRN N/A 05/18/17 18:00 06/17/17 17:59 Insulin Aspart (novoLOG ASPART) SLIDING SCALE ACHS SC 05/18/17 21:00 06/17/17 20:59 05/19/17 09:08 2 UNITS Insulin Aspart (novoLOG ASPART) SLIDING SCALE TODAY@0000,0400 SC 05/19/17 00:00 06/18/17 00:00 05/19/17 00:18 2 UNITS Glucose (Glucose 40% Gel) 15-30 GRAMS 15 GRAMS... UD PRN PO 05/18/17 19:15 06/17/17 19:14 Glucose (Glucose Chew Tab) 4-8 Tablets 4 Tabl... UD PRN PO 05/18/17 19:15 06/17/17 19:14 Dextrose (Dextrose 50% 50ML Syringe) 25-50ML OF 50% DW IV FOR... UD PRN IV 05/18/17 19:15 06/17/17 19:14 Glucagon (Glucagon Inj) 1 mg UD PRN SQ 05/18/17 19:15 06/17/17 19:14 Ondansetron HCl (Zofran Inj) 4 mg Q6H PRN IV 05/19/17 07:30 06/18/17 07:29 Furosemide 40 mg/ Syringe 4 ml @ 4 mls/min DAILY IV 05/19/17 09:00 06/18/17 08:59 05/19/17 08:56 4 MLS/MIN Prednisone (PredniSONE TAB) 10 mg QAM PO 05/19/17 09:00 06/15/17 08:59 05/19/17 08:57 10 MG Metoprolol Tartrate (Lopressor Iv) 2.5 mg Q6 IV. 05/19/17 12:00 06/18/17 11:59 Impression (1) Acute renal insufficiency (2) Gram negative septicemia (3) Diastolic CHF, acute (4) UTI (urinary tract infection) (5) Hypertension (6) Type 2 diabetes mellitus without complications Mary is an 81-year-old female with acute on chronic renal insufficiency. Laboratory studies showing early evidence of renal recovery. WILBERTO consistent with ATN in the setting of gram-negative sepsis and urinary tract infection. Patient is clinically responded to cefepime. She does have some respiratory difficulty this morning as well as evidence of acute on chronic diastolic congestive heart failure. It would be appropriate at this time to maintain a slightly negative fluid balance. Patient has been restarted on furosemide this morning. She received 20 mg. Telmisartan and HCTZ have been held. Recommendations -- Continue furosemide to encourage slightly negative fluid balance -- Document I/O's -- Hold telmisartan -- Medications appropriately dosed for renal function -- Repeat metabolic profile tomorrow AM
--- NOTE | 2017-05-19 11:02 | Pharmacy Progress Note ---
Glycemic Control Intl Consult Date of Service May 19, 2017. Scope Glycemic Pharmacist consulted by Dr Elaine on 05/19/17 for glycemic control and to write orders per [facility] inpatient glycemic control protocol Objective Weight (Kilograms): 76.900 Accuchecks BSG (last 24hrs): Test 05/18/17 16:24 05/18/17 20:21 05/19/17 00:00 05/19/17 04:05 Bedside Glucose 258 mg/dl (70-90) 273 mg/dl (70-90) 238 mg/dl (70-90) 166 mg/dl (70-90) Test 05/19/17 05:30 05/19/17 06:31 Random Glucose 148 mg/dl (70-99) Bedside Glucose 152 mg/dl (70-90) Laboratory Data (last 24hrs) Test 05/19/17 05:30 Anion Gap 9.0 mmol/L BUN/Creatinine Ratio 26.5 Blood Urea Nitrogen 58 mg/dl Creatinine 2.20 mg/dl Potassium Level 4.5 mmol/L Sodium Level 143 mmol/L White Blood Count 15.84 K/uL Red Blood Count 3.17 M/uL Hemoglobin 9.4 g/dL Hematocrit 28.6 % Mean Corpuscular Volume 90.2 fL Mean Corpuscular Hemoglobin 29.7 pg Mean Corpuscular Hemoglobin Concent 32.9 g/dl Platelet Count 197 K/uL Mean Platelet Volume 10.5 fL Neutrophils (%) (Auto) 83.5 % Lymphocytes (%) (Auto) 8.3 % Monocytes (%) (Auto) 6.5 % Eosinophils (%) (Auto) 0.1 % Basophils (%) (Auto) 0.1 % Neutrophils # (Auto) 13.24 K/uL Lymphocytes # (Auto) 1.31 K/uL Monocytes # (Auto) 1.03 K/uL Eosinophils # (Auto) 0.02 K/uL Basophils # (Auto) 0.01 K/uL HbA1c Test 05/15/17 05:47 Hemoglobin A1c 6.3 % (4.5-5.6) H Recent Pertinent Medications Outpatient Anti-diabetic Regimen: * None The patient is currently receiving: * Correctional Insulin: Novolog Correction per scale ACHS plus overnight checks at 00 and 04 Goal Range: Low 140 mg/dL - High 180 mg/dL Correction Factor: 30 mg/dL/unit * Prandial insulin: Per carb ratio of 1 unit per 10 grams CHO consumed Risk Factors for Insulin Resistance: * Steroids: Prednisone 10 mg po daily (decreased from 20 mg on 05/18) * Infection: Cefepime IV q24h -> Pseudomonas bacteremia, Proteus UTI, possible HCAP * Diet: regular diet -> will change to T2DM Assessment & Plan ASSESSMENT: * 81 yr old diet controlled T2DM female admitted with sepsis secondary to Pseudomonas bacteremia, Proteus UTI and possible HCAP. * Patient is likely experiencing hyperglycemia due to steroid therapy and infection * Steroids tapering down - currently on Prednisone 10 mg PO daily * BSGs have improved since the addition of Novolog and one time dose of Lantus 13 units on 05/18 PM * Patient will be maintained on bolus insulin with Novolog ACHS * Steroids have most profound effect on prandial BSG - will tighten CF/CR parameters * Lantus will be given at HS only if BSG is 140 mg/dL or more (weight/stress 1) * ADA & AACE recommend a goal blood sugar range 140-180 mg/dl for the majority of critically ill & non-critically ill patients. PLAN FOR INPATIENT GLYCEMIC CONTROL: * Lantus 7 units sq HS if BSG is 140 mg/dL or greater * Correctional/Prandial Insulin with NOVOLOG per scale ACHS * Goal Range: Low 140 mg/dL - High 180 mg/dL * Tighten Correction Factor to 25 mg/dL/unit * Tighten Nutritional / Prandial insulin per carb ratio to 1 unit per 8 grams CHO consumed LOOKING AHEAD TO DISCHARGE: * Good outpatient glycemic control evidenced by recent A1c of 6.3 %. * Patient does not take anti-diabetic medications as an outpatient. She is diet controlled. It is reasonable to continue this due to adequate A1c for age/ comorbidities. * Please note that the plan above was derived based on current level of insulin resistance and hospital stress. These recommendations are appropriate for inpatient admission only. Plan of care upon discharge will need to be reassessed to avoid potential outpatient hypo/hyperglycemia. Thank you.
[2017-05-19] MEDS: METOPROLOL TARTRATE 1 MG/ML VIAL IV. SCH ×2 (11:28→18:09)
--- NOTE | 2017-05-19 14:05 | Progress Note ---
Subjective Date of Service: May 19, 2017. Subjective Pt evaluation today including: conversation w/ patient, conversation w/ family , physical exam, chart review, lab review, review of studies, conversation w/ field service consultant, review of inpatient medication list Voiding: jimenes catheter in place Gen. condition is better, less wheezing, speak full sentence, conversational, possible in baseline mental status, However possible choking when eating Problem List Medical Problems: (1) Acute renal failure Status: Acute (2) Altered mental status Status: Acute (3) History of stroke Status: Chronic (4) Hypertension Status: Chronic (5) Pneumonia Status: Acute (6) UTI (urinary tract infection) Status: Acute Review of Systems Constitutional: No fever, No chills, No sweats, No weight loss, No weakness, No fatigue, No problem reported Eyes: No worsening of vision, No eye pain, No redness, No discharge, No diplopia ENT: No hearing loss, No unusual epistaxis, No nasal symptoms, No sore throat, No tinnitus, No dental problems, No trouble swallowing Respiratory: + wheezing, + shortness of breath, No cough, No sputum, No dyspnea on exertion, No dyspnea at rest, No hemoptysis Cardiac: + edema, No chest pain, No orthopnea, No PND, No claudication, No palpitations Abdomen: No pain, No nausea, No vomiting, No diarrhea, No constipation Musculoskeletal: No joint pain, No muscle pain, No swelling, No calf pain Female : No dysuria, No urinary frequency, No hematuria, No incontinence, No abnormal vaginal bleeding, No vaginal discharge Neurologic: No memory loss, No paralysis, No weakness, No numbness/tingling, No vertigo, No balance problems Psychiatric: No depression symptoms, No anhedonism, No anxiety, No insomnia, No substance abuse Heme: No abnormal bleeding/bruising, No clotting problems, No swollen lymph nodes, No night sweats Endo: No fatigue, No excessive thirst, No excessive urination Skin: + problem reported (right lower extremity skin red and hot, is better name yesterday), No rash, No itch, No new/changing skin lesions, No color change , No bleeding Objective Vital Signs Date Time Temp Pulse Resp B/P (MAP) Pulse Ox O2 Delivery O2 Flow Rate FiO2 05/19/17 12:00 90 Nasal Cannula 3.0 05/19/17 11:46 99 20 92 Nasal Cannula 4.0 05/19/17 11:28 101 101/58 05/19/17 11:24 36.3 92 20 105/58 (74) 91 Nasal Cannula 4.0 05/19/17 08:00 90 Nasal Cannula 3.0 05/19/17 07:56 36.4 108 20 102/64 (77) 90 Nasal Cannula 3.0 05/19/17 07:12 93 20 95 Nasal Cannula 3.0 05/19/17 04:37 36.7 94 18 98/66 (77) 95 Nasal Cannula 05/19/17 04:00 Nasal Cannula 2.0 05/19/17 00:00 Nasal Cannula 2.0 05/18/17 23:50 37.0 95 18 101/66 (78) 95 Nasal Cannula 05/18/17 20:33 36.8 100 18 105/71 (82) 98 05/18/17 20:00 Nasal Cannula 2.0 05/18/17 19:57 96 20 94 Nasal Cannula 3.0 05/18/17 16:00 Nasal Cannula 3.0 05/18/17 15:51 36.9 99 18 104/70 (81) 99 05/18/17 15:40 96 20 94 Nasal Cannula 3.0 Physical Exam General Appearance: WD/WN, no apparent distress, + obese, + pertinent finding ( pleasant and in baseline) Eyes: normal inspection, PERRL, EOMI, sclerae normal ENT: normal ENT inspection, hearing grossly normal, pharynx normal Neck: supple, no adenopathy, thyroid normal, no JVD, no carotid bruits, trachea midline Respiratory/Chest: chest non-tender, normal breath sounds, no respiratory distress, no accessory muscle use, + decreased breath sounds, + wheezing Cardiovascular: regular rate, rhythm, no edema, no gallop, no JVD, no murmur Abdomen: normal bowel sounds, non tender, soft, no organomegaly, no pulsatile mass Extremities: normal range of motion, non-tender, normal inspection, no pedal edema, no calf tenderness, normal capillary refill, pelvis stable, + swelling ( right lower extremity rashes is a little better) Neurologic/Psychiatric: hostess party sales representative II-XII nml as tested, no motor/sensory deficits, alert, normal mood/affect, oriented x 3 Skin: normal color, warm/dry, no rash Lymphatic: no adenopathy Laboratory Results Last 24 Hours Test 05/18/17 16:24 05/18/17 19:14 05/18/17 20:21 05/19/17 00:00 Bedside Glucose 258 mg/dl 273 mg/dl 238 mg/dl Troponin I 0.677 ng/ml Test 05/19/17 04:05 05/19/17 05:30 05/19/17 06:31 Bedside Glucose 166 mg/dl 152 mg/dl White Blood Count 15.84 K/uL Red Blood Count 3.17 M/uL Hemoglobin 9.4 g/dL Hematocrit 28.6 % Mean Corpuscular Volume 90.2 fL Mean Corpuscular Hemoglobin 29.7 pg Mean Corpuscular Hemoglobin Concent 32.9 g/dl Platelet Count 197 K/uL Mean Platelet Volume 10.5 fL Neutrophils (%) (Auto) 83.5 % Lymphocytes (%) (Auto) 8.3 % Monocytes (%) (Auto) 6.5 % Eosinophils (%) (Auto) 0.1 % Basophils (%) (Auto) 0.1 % Neutrophils # (Auto) 13.24 K/uL Lymphocytes # (Auto) 1.31 K/uL Monocytes # (Auto) 1.03 K/uL Eosinophils # (Auto) 0.02 K/uL Basophils # (Auto) 0.01 K/uL RDW Standard Deviation 49.6 fL RDW Coefficient of Variation 15.1 % Immature Granulocyte % (Auto) 1.5 % Immature Granulocyte # (Auto) 0.23 K/uL Sodium Level 143 mmol/L Potassium Level 4.5 mmol/L Chloride Level 111 mmol/L Carbon Dioxide Level 23 mmol/L Anion Gap 9.0 mmol/L Blood Urea Nitrogen 58 mg/dl Creatinine 2.20 mg/dl Est Creatinine Clear Calc Drug Dose 19.4 ml/min Estimated GFR () 23.4 Estimated GFR (Non- 20.2 BUN/Creatinine Ratio 26.5 Random Glucose 148 mg/dl Calcium Level 8.7 mg/dl Magnesium Level 2.5 mg/dl Assessment and Plan 81 yo female with history of ischemic CVA with right sided weakness, admitted on 05/14/2017 from [facility] with fever, hypoxia, dyspnea Leukocytosis, WILBERTO on admission - Severe sepsis and bacteremia upon admission: Stable and improving Was having leukocytosis, was worsening possible from steroid use, Today's trends down With evidence of organ failure with WILBERTO, hypoxia, hypotension and encephalopathy , no evidence of shock, Proteus UTI on UA Pseudomonas bacteremia, possible from the urinary source left lower lobe infiltrate, with choking when eating, check speech to optimize diet, Right lower extremity cellulitis has ruled out DVT upon admission on 05/15/2017 , cellulitis continue , improved was on broad spectrum antibiotics with Cefepime, Zithromax and Zyvox (chosen due to renal failure) ID following, per recs can continue cefepime while inpt (will need for treatment of proteus uti), when stable for d/c can change to po levaquin to complete course, stop 05/29. repeat blood cultures negative. Possible HCAP: patient from SNF, with left lower lung infiltration, see above , tapering Prednisone, Duonebs Acute hypoxic respiratory failure upon admission: Likely from pneumonia Possible have acute on chronic diastolic CHF exacerbation with Echo shows diastolic dysfunction, which is supported by pulmonary edema and elevated BNP Patient's kidney function improved and wheezing improved after Lasix IV other differential diagnosis include acute PE because of wheezing and elevated BNP, VQ scan, less likely PE Elevated troponin, possible demanding ischemia from worsening CHF acute on chronic diastolic exacerbation, has consult cryptographer UTI with bacteremia: See above Cellulitis, continue above antibiotics Possible acute kidney failure with unknown etiology with CKD stage III: baseline Cr 1.5-1.8, was elevated on admission at 2.9, likely prerenal patient received Lasix in the ED and again after arriving to the floor Improving, will continue diuretic, discussed with health education aide Patient has multiple medical conditions, prognosis is guarded because of comorbidities and age, discussed with daughter about the condition and care plan , answered all questions - h/o ischemic CVA: continue Plavix DVT prophylaxis: heparin q12 DNR From [place] [facility], will follow-up speech evaluation and video study Continued [facility] stay due to: multiple IV medications needed Discharge planning: home
[2017-05-19] MEDS ORDERED: INSULIN GLARGINE SOLOSTAR 100 UNITS/ML 3 ML PEN SC SCH (21:00)
[2017-05-20] VITALS (11 sets, daily range): BP systolic 101–139; BP diastolic 61–82; PULSE 76–90; TEMP 36.3–36.6; O2SAT 75–96
[2017-05-20] MEDS: METOPROLOL TARTRATE 1 MG/ML VIAL IV. SCH ×5 (00:26→23:40)
[2017-05-20 07:08] LABS: BASO % 0.1 %; BASO ABS # 0.02 K/uL (0-0.2); COMPLETE YES; EOS % 0.9 %; HEMATOCRIT 28.7 % (37-47); IG% 2.4 %; LYMPH % 11.1 %; MEAN CELL VOLUME 92.6 fL (80-100); MEAN CORPUSCULAR HEMOGLOBIN 29.7 pg (25-34); MEAN CORPUSCULAR HGB CONC 32.1 g/dl (32-36); MEAN PLATELET VOLUME 10.4 fL (7.4-10.4); NEUT % 79.5 %; PLATELET COUNT 182 K/uL (130-400); WHITE BLOOD COUNT 14.42 K/uL (4.8-10.8)
[2017-05-20 07:41] LABS: BUN/CREATININE RATIO 30.9 (10-20); CREATININE 2.1 mg/dl (0.60-1.20); MAGNESIUM 2.4 mg/dl (1.8-2.4); POTASSIUM 4.6 mmol/L (3.5-5.1)
[2017-05-20] MEDS: ALBUT/IPRATROP 3MG/0.5MG NEB 3 ML VIAL INH SCH ×4 (07:55→19:26)
[2017-05-20] MEDS: FUROSEMIDE INJ 40 MG in SYRINGE 0 ML IV SCH (08:48)
[2017-05-20] MEDS: CEFEPIME IV 2000 MG in DEXTROSE 5% 100ML IV SCH (08:58)
[2017-05-20] MEDS: KETOCONAZOLE 2% CR 15 GM TUBE EXT SCH ×2 (08:58→20:09)
[2017-05-20] MEDS: LACTOBACILLUS ACIDOPHILUS 1 GM PACK PO SCH ×3 (08:58→17:14)
[2017-05-20] MEDS: CHOLECALCIFEROL 1000 INTER.UNIT TAB PO SCH (08:58)
[2017-05-20] MEDS: INSULIN ASPART 100 UNITS/ML 3 ML PEN SC SCH ×4 (09:02→20:24)
[2017-05-20] MEDS: HEPARIN SOD 5000 UNIT/0.5 ML CARP SQ SCH ×2 (09:03→20:26)
[2017-05-20] MEDS: CLOPIDOGREL BISULFATE 75 MG TAB PO SCH (09:03)
--- NOTE | 2017-05-20 09:16 | CARDIOLOGY CONSULTATION ---
DATE OF CONSULTATION: 05/20/2017 DATE OF CONSULTATION: 05/20/2017. REFERRING PHYSICIAN: Ayaan Elaine. CHIEF COMPLAINT: Dyspnea. HISTORY OF PRESENT ILLNESS: Mrs. Mary Ashley is an 81-year-old woman who was initially admitted on 05/14/2017 for symptoms of infection. The patient is a resident at [facility]. She was noted by care givers to have a slightly altered mentation and eventually fever and hypoxia. She was brought to [facility] where she was eventually diagnosed with several abnormalities to include pneumonia, congestive heart failure, acute renal injury and right lower extremity cellulitis. The patient was started on antibiotic therapy and gentle hydration. Over the course of her hospitalization, she appears to be clinically improved. Laboratory studies were drawn several days ago which demonstrated elevated cardiac biomarkers to include troponin and BNP. Based on the abnormal results of this study, cardiology was asked to evaluate the patient. Interview was performed today with the patient and the case discussed with her nurse. She provided little history herself and stated that she feels "wonderful" on more than one occasion. She was able to answer yes or not to some questions and did not appear to be in acute pain. She denied significant breathing trouble currently and it seems as if she appreciated some improvement in her condition since admission. I felt that the remainder of her history was not unreliable based on her cognitive dysfunction and aphasia. PAST MEDICAL HISTORY: Significant for: 1. 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 2. Breast cancer with left mastectomy. 3. Carotid artery stenosis. 4. Chronic renal insufficiency. 5. Diabetes mellitus. 6. Hyperlipidemia. 7. Hypertension. 8. Anxiety. OUTPATIENT MEDICATIONS: Include Plavix, Lasix, Claritin, Micardis. MEDICAL ALLERGIES: None. SOCIAL HISTORY: The patient is currently a resident in [facility]. She has a remote history of tobacco abuse, currently nonsmoker, no alcohol use. FAMILY HISTORY: Noncontributory given her advanced age, no premature coronary disease. REVIEW OF SYSTEMS: Not obtainable due to the cognitive deficits of the patient. PHYSICAL EXAMINATION: GENERAL: The patient does not appear in any acute distress. She is a pleasant individual who is alert. She answered questions as noted in the history of present illness. Her affect appeared to be normal. CURRENT VITAL SIGNS: Included blood pressure of 106/69 with a pulse of 79. HEAD, EYES, EARS, NOSE, AND THROAT: Sclerae are anicteric. NECK: Palpation of submandibular region did not reveal any significant lymphadenopathy. The carotids were palpable bilaterally. I did not appreciate any bruits on auscultation. I could not appreciate any jugular venous distention, although the patient was in approximately 80 degrees for breakfast. There was no thyromegaly. Neuro evaluation did reveal some weakness of the right side including paralysis of the right leg. LUNGS: Auscultation of her lungs revealed crackles throughout both lung collins, generally speaking good air movement however, no expiratory wheezing. CARDIAC EXAMINATION: Revealed her to be in a regular rhythm. She had normal S1, very soft systolic ejection murmur was appreciated. PMI was not markedly displaced on palpation. ABDOMEN: Soft and nontender. EXTREMITIES: Evaluation of both wrists revealed radial pulses that were equal in intensity. There is no evidence of cyanosis or clubbing. Evaluation of lower extremities revealed erythema and edema on the right leg but the left leg appeared normal. She had some ecchymosis but I did not appreciate any other rashes today. LABORATORY STUDIES: Today include a white cell count 14.4, hemoglobin of 9.2, a platelet count of 182. Sodium is 144, potassium is 4.6, BUN was 65, creatinine was 2.1. On 05/18/2017 the patient did have an elevated troponin at 0.7, later measured at 0.6. N-terminal ProBNP obtained the same day was 32,600, no repeat studies have been performed. The patient did undergo an echocardiogram on 05/15/2017 which revealed preserved left ventricular systolic function and stage I diastolic dysfunction. She had mild concentric left ventricular hypertrophy and mild aortic regurgitation. Multiple imaging studies were done since admission including a chest x-ray 05/15/2017. This demonstrated interstitial pulmonary edema and small pleural effusions. The patient does have positive cultures including her urine which grew proteus and blood culture growing pseudomonas. ASSESSMENT AND PLAN: 1. Acute decompensated diastolic heart failure: The patient appears to have preserved left ventricular systolic function, but clearly has an element of pulmonary vascular congestion. While stage I diastolic function essentially normal in this age group I cannot dispute the fact that she has evidence of decompensated heart failure. This would suggest diastolic dysfunction. Her blood pressures does not appear to be elevated at the time of admission, but she does have some mild concentric LVH. At this point, the primary treatment would simply be diuresis. The patient has been started on intravenous diuretic and this appears to have produced a good result. During the first few days of her admission, the patient had a positive fluid balance that may have contributed in some degree to worsening of her pulmonary vascular congestion. At this point, it would seem reasonable to continue on her current diuretic regimen, monitoring her electrolytes and renal function closely. 2. Elevated cardiac biomarkers: The patient does have mildly elevated cardiac troponins at least measured 3 days ago. No additional studies have been performed. Unfortunately the patient's history is unreliable and we cannot assess whether she had any symptoms of chest discomfort at that time. However, I would discount the possibility of an acute coronary syndrome, I feel that the elevated biomarkers are more likely demand related than secondary to a plaque rupture event. In any event, the patient is not a good candidate for any type of ischemic evaluation. Given her bedbound status and absence of symptoms there is likely little benefit to any additional evaluation, especially in the setting of preserved LV systolic function and given the risks of intervention with her renal dysfunction. At this point I will not pursue any additional lab testing in this respect. Simply treat her pulmonary vascular congestion as noted above. 3. Coronary artery disease: The patient undoubtedly has an element of coronary artery disease. This likely accounts for some of her elevated biomarkers in the setting of an acute illness including a period of hypoxia. The patient has been maintained on Plavix therapy, likely for her history of cerebrovascular accident. This, however, has benefits in the setting of coronary disease as well. She likely would benefit from institution of moderate intensity statin therapy if this is not otherwise contraindicated. 4. Valvular heart disease: The patient has element of mild aortic regurgitation. Given her other comorbidities, this likely will never be a significant issue and does not require immediate followup.
--- NOTE | 2017-05-20 14:06 | Pharmacy Progress Note ---
Glycemic: Assessment & Plan Date of Service May 20, 2017. Assessment & Plan The patient is currently receiving ~13 units of insulin per day. BSGs ranging 124 - 195 mg/dl over the past 24hrs. * Basal insulin: Lantus 0-7 units every 24 hours given at bedtime if BSG > 140mg/dl * Correctional Insulin: Novolog Correction per scale ACHS Goal Range: Low 140 mg/dL - High 180 mg/dL Correction Factor: 25 mg/dL/unit * Prandial insulin: Per carb ratio of 1 unit per 8 grams CHO consumed BSGs continue to improve, no changes needed to inpatient regimen at this time. Pharmacy will continue to monitor patient daily and write orders per [facility] inpatient glycemic control protocol. Thanks. * Please note that the plan above was derived based on current level of insulin resistance and hospital stress. These recommendations are appropriate for inpatient admission only. Plan of care upon discharge will need to be reassessed to avoid potential outpatient hypo/hyperglycemia.
--- NOTE | 2017-05-20 14:57 | DIAGNOSTIC IMAGING REPORT ---
VIDEO SWALLOW HISTORY: Pneumonia. assess for aspiration, please schedule at 1400 on 05/20/17 TECHNIQUE: Video fluoroscopic evaluation of swallowing was performed in the AP and lateral projections by the speech pathology staff. The patient is fed nectar-thick and thin liquid barium, a barium coated wafer, and barium pudding. FLUOROSCOPY TIME: 1.1 minutes. A cine loop submitted. COMPARISON STUDY: None. FINDINGS: Aspiration with the initial swallows of the thin liquid barium with a delayed cough. No aspiration identified with the nectar thick liquid or barium pudding. IMPRESSION: 1. Aspiration with the initial swallows of the thin liquid barium resulting in a delayed cough. 2. Please see the speech pathologist report for detailed findings and recommendations. Electronically signed by: Kenan Camarillo M.D. 05/20/2017 2:56 PM Dictated Date/Time: 05/20/2017 2:54 PM
--- NOTE | 2017-05-20 15:55 | Progress Note ---
Subjective Date of Service: May 20, 2017. Subjective Pt evaluation today including: conversation w/ patient, conversation w/ family , physical exam, chart review, lab review, review of studies, review of inpatient medication list Continue doing the same, possible improving Awake and alert, conversational, mental status in the baseline Get Feeding Problem List Medical Problems: (1) Acute renal failure Status: Acute (2) Altered mental status Status: Acute (3) History of stroke Status: Chronic (4) Hypertension Status: Chronic (5) Pneumonia Status: Acute (6) UTI (urinary tract infection) Status: Acute Review of Systems Constitutional: + problem reported, No see HPI, No fever, No chills, No sweats , No weight loss, No weakness, No fatigue Eyes: No see HPI, No worsening of vision, No eye pain, No redness, No discharge , No diplopia, No problem reported ENT: No see HPI, No hearing loss, No unusual epistaxis, No nasal symptoms, No sore throat, No tinnitus, No dental problems, No trouble swallowing, No problem reported Respiratory: + cough, + shortness of breath, No see HPI, No sputum, No wheezing , No dyspnea on exertion, No dyspnea at rest, No hemoptysis, No problem reported Cardiac: + edema, No see HPI, No chest pain, No orthopnea, No PND, No claudication, No palpitations, No problem reported Abdomen: No see HPI, No pain, No nausea, No vomiting, No diarrhea, No constipation, No GI bleeding, No problem reported Female : No see HPI, No dysuria, No urinary frequency, No hematuria, No incontinence, No abnormal vaginal bleeding, No vaginal discharge, No problem reported Psychiatric: No see HPI, No depression symptoms, No anhedonism, No anxiety, No insomnia, No substance abuse, No problem reported Heme: No see HPI, No abnormal bleeding/bruising, No clotting problems, No swollen lymph nodes, No night sweats, No problem reported Objective Vital Signs Date Time Temp Pulse Resp B/P (MAP) Pulse Ox O2 Delivery O2 Flow Rate FiO2 05/20/17 15:28 79 18 75 Room Air 05/20/17 13:00 80 139/82 05/20/17 11:59 36.6 80 16 139/82 (101) 94 3.0 05/20/17 11:10 87 18 94 Nasal Cannula 4.0 05/20/17 07:55 76 18 96 Nasal Cannula 4.0 05/20/17 07:39 36.4 79 18 106/69 (81) 94 05/20/17 06:02 98 115/64 05/20/17 04:00 Nasal Cannula 3.0 05/20/17 03:57 36.4 80 22 101/61 (74) 91 Nasal Cannula 3.0 05/20/17 00:26 92 107/70 05/20/17 00:00 93 Nasal Cannula 3.0 05/19/17 23:39 36.6 91 20 102/47 (65) 91 Nasal Cannula 3.0 05/19/17 20:00 Nasal Cannula 3.0 05/19/17 19:44 79 18 93 Nasal Cannula 4.0 05/19/17 19:27 36.8 91 23 157/68 (97) 94 Nasal Cannula 4.0 05/19/17 18:09 101 98/63 05/19/17 16:00 Nasal Cannula 4.0 Physical Exam General Appearance: WD/WN, no apparent distress, + obese, + pertinent finding ( pleasant but confused, in baseline) Eyes: normal inspection, PERRL, EOMI, sclerae normal ENT: normal ENT inspection, hearing grossly normal, pharynx normal Neck: supple, no adenopathy, thyroid normal, no JVD, no carotid bruits, trachea midline Respiratory/Chest: chest non-tender, normal breath sounds, no respiratory distress, no accessory muscle use, + decreased breath sounds Cardiovascular: regular rate, rhythm, no edema, no gallop, no JVD, no murmur Abdomen: normal bowel sounds, non tender, soft, no organomegaly, no pulsatile mass, + pertinent finding (Calle catheter in place) Extremities: normal range of motion, non-tender, normal inspection, no pedal edema, no calf tenderness, normal capillary refill, pelvis stable, + swelling (1 + edema), + pertinent finding (right anterior bass red is better) Neurologic/Psychiatric: bath mixer II-XII nml as tested, alert, normal mood/affect, oriented x 3, + pertinent finding (left side, Paralyzed from stroke which is not new) Skin: normal color, warm/dry, no rash Lymphatic: no adenopathy Laboratory Results Last 24 Hours Test 05/19/17 16:33 05/19/17 20:44 05/20/17 06:50 05/20/17 06:57 Bedside Glucose 195 mg/dl 186 mg/dl 146 mg/dl White Blood Count 14.42 K/uL Red Blood Count 3.10 M/uL Hemoglobin 9.2 g/dL Hematocrit 28.7 % Mean Corpuscular Volume 92.6 fL Mean Corpuscular Hemoglobin 29.7 pg Mean Corpuscular Hemoglobin Concent 32.1 g/dl Platelet Count 182 K/uL Mean Platelet Volume 10.4 fL Neutrophils (%) (Auto) 79.5 % Lymphocytes (%) (Auto) 11.1 % Monocytes (%) (Auto) 6.0 % Eosinophils (%) (Auto) 0.9 % Basophils (%) (Auto) 0.1 % Neutrophils # (Auto) 11.45 K/uL Lymphocytes # (Auto) 1.60 K/uL Monocytes # (Auto) 0.87 K/uL Eosinophils # (Auto) 0.13 K/uL Basophils # (Auto) 0.02 K/uL RDW Standard Deviation 52.2 fL RDW Coefficient of Variation 15.5 % Immature Granulocyte % (Auto) 2.4 % Immature Granulocyte # (Auto) 0.35 K/uL Nucleated RBC Absolute Count (auto) 0.04 K/uL Nucleated Red Blood Cells % 0.3 % Sodium Level 144 mmol/L Potassium Level 4.6 mmol/L Chloride Level 110 mmol/L Carbon Dioxide Level 23 mmol/L Anion Gap 11.0 mmol/L Blood Urea Nitrogen 65 mg/dl Creatinine 2.10 mg/dl Est Creatinine Clear Calc Drug Dose 20.0 ml/min Estimated GFR () 24.8 Estimated GFR (Non- 21.4 BUN/Creatinine Ratio 30.9 Random Glucose 122 mg/dl Calcium Level 9.0 mg/dl Magnesium Level 2.4 mg/dl Test 05/20/17 11:21 Bedside Glucose 157 mg/dl Assessment and Plan 81 yo female with history of ischemic CVA with right sided weakness, admitted on 05/14/2017 from [facility] with fever, hypoxia, dyspnea Leukocytosis, WILBERTO on admission - Severe sepsis and bacteremia upon admission: Stable and improving Was having leukocytosis, was worsening possible from steroid use, continue doing better With evidence of organ failure with WILBERTO, hypoxia, hypotension and encephalopathy , no evidence of shock, Proteus UTI on UA Pseudomonas bacteremia, possible from the urinary source left lower lobe infiltrate, with choking when eating, check speech to optimize diet, Bressler Thick diet per recommendation Right lower extremity cellulitis has ruled out DVT upon admission on 05/15/2017 , cellulitis continue improved was on broad spectrum antibiotics with Cefepime, Zithromax and Zyvox (chosen due to renal failure) ID following, per recs can continue cefepime while inpt (will need for treatment of proteus uti), when stable for d/c can change to po levaquin to complete course, stop 05/29. repeat blood cultures negative. Possible HCAP: patient from SNF, with left lower lung infiltration, see above , tapering Prednisone, Duonebs Acute hypoxic respiratory failure upon admission: Stable and improving , Likely from pneumonia Possible have acute on chronic diastolic CHF exacerbation with Echo shows diastolic dysfunction, which is supported by pulmonary edema and elevated BNP Patient's kidney function improved and wheezing improved after Lasix IV, other differential diagnosis include acute PE because of wheezing and elevated BNP, VQ scan, less likely PE Elevated troponin, possible demanding ischemia from worsening CHF acute on chronic diastolic exacerbation, has consult 3d specialist UTI with bacteremia: See above Cellulitis, continue above antibiotics Possible acute kidney failure with unknown etiology with CKD stage III: baseline Cr 1.5-1.8, was elevated on admission at 2.9, likely prerenal patient received Lasix in the ED and again after arriving to the floor Improving, will continue diuretic, discussed with beta tester, continue Lasix because patient's creatinine level improved Patient has multiple medical conditions, prognosis is guarded because of comorbidities and age, discussed with daughter about the condition and care plan , answered all questions - h/o ischemic CVA: continue Plavix DVT prophylaxis: heparin q12 DNR Continued [facility] stay due to: multiple IV medications needed Discharge planning: home
--- NOTE | 2017-05-20 18:18 | Nephrology Progress Note ---
Nephrology Progress Note Date of Service May 20, 2017. Chief Complaint WILBERTO Subjective Mary was seen and evaluated in her hospital room this morning. She had no specific complaints. Denies significant dyspnea. No fevers or chills. Appetite slowly improving. Review of Systems A complete review of systems was performed. Pertinent positives are noted above. All other systems are negative. Vital Signs Last 8 Hrs Date Time Temp Pulse Resp B/P (MAP) Pulse Ox O2 Delivery O2 Flow Rate FiO2 05/20/17 16:00 Nasal Cannula 3.0 05/20/17 15:30 36.6 79 20 126/80 (95) 94 Nasal Cannula 3.0 05/20/17 15:28 79 18 75 Room Air 05/20/17 13:00 80 139/82 05/20/17 12:00 Nasal Cannula 3.0 05/20/17 11:59 36.6 80 16 139/82 (101) 94 3.0 05/20/17 11:10 87 18 94 Nasal Cannula 4.0 I & O 24-Hour Column 05/21/17 08:00 Output Total 1300 ml Balance -1300 ml Last Recorded Weight Weight (Kilograms): 75.000 Physical Exam General Appearance: WD/WN, no apparent distress Head: normocephalic, atraumatic Eyes: normal inspection, sclerae normal ENT: normal ENT inspection, pharynx normal Neck: supple, no JVD Respiratory/Chest: lungs clear, no respiratory distress, no accessory muscle use Cardiovascular: regular rate, rhythm Abdomen/GI: non tender, soft Extremities/Musculoskelatal: normal inspection, no pedal edema Neurologic/Psych: alert, oriented x 3 Family History No pertinent family history Social History Smoking Status: Never smoker Drug Use: none Marital Status: Housing Status: lives with family Occupation: retired Laboratory Results Past 24 Hours 05/20/17 06:50 Red Blood Count 3.10, Mean Corpuscular Volume 92.6, Mean Corpuscular Hemoglobin 29.7, Mean Corpuscular Hemoglobin Concent 32.1, Mean Platelet Volume 10.4, Neutrophils (%) (Auto) 79.5, Lymphocytes (%) (Auto) 11.1, Monocytes (%) (Auto) 6.0, Eosinophils (%) (Auto) 0.9, Basophils (%) (Auto) 0.1, Neutrophils # (Auto) 11.45, Lymphocytes # (Auto) 1.60, Monocytes # (Auto) 0.87, Eosinophils # (Auto) 0.13, Basophils # (Auto) 0.02 05/20/17 06:50 Test 05/19/17 20:44 05/20/17 06:50 05/20/17 06:57 05/20/17 11:21 Bedside Glucose 186 mg/dl (70-90) 146 mg/dl (70-90) 157 mg/dl (70-90) White Blood Count 14.42 K/uL (4.8-10.8) Red Blood Count 3.10 M/uL (4.2-5.4) Hemoglobin 9.2 g/dL (12.0-16.0) Hematocrit 28.7 % (37-47) Mean Corpuscular Volume 92.6 fL (80-100) Mean Corpuscular Hemoglobin 29.7 pg (25-34) Mean Corpuscular Hemoglobin Concent 32.1 g/dl (32-36) Platelet Count 182 K/uL (130-400) Mean Platelet Volume 10.4 fL (7.4-10.4) Neutrophils (%) (Auto) 79.5 % Lymphocytes (%) (Auto) 11.1 % Monocytes (%) (Auto) 6.0 % Eosinophils (%) (Auto) 0.9 % Basophils (%) (Auto) 0.1 % Neutrophils # (Auto) 11.45 K/uL (1.4-6.5) Lymphocytes # (Auto) 1.60 K/uL (1.2-3.4) Monocytes # (Auto) 0.87 K/uL (0.11-0.59) Eosinophils # (Auto) 0.13 K/uL (0-0.5) Basophils # (Auto) 0.02 K/uL (0-0.2) RDW Standard Deviation 52.2 fL (36.4-46.3) RDW Coefficient of Variation 15.5 % (11.5-14.5) Immature Granulocyte % (Auto) 2.4 % Immature Granulocyte # (Auto) 0.35 K/uL (0.00-0.02) Nucleated RBC Absolute Count (auto) 0.04 K/uL (0-0) Nucleated Red Blood Cells % 0.3 % Anion Gap 11.0 mmol/L (3-11) Est Creatinine Clear Calc Drug Dose 20.0 ml/min Estimated GFR () 24.8 Estimated GFR (Non- 21.4 BUN/Creatinine Ratio 30.9 (10-20) Calcium Level 9.0 mg/dl (8.5-10.1) Magnesium Level 2.4 mg/dl (1.8-2.4) Test 05/20/17 16:43 Bedside Glucose 173 mg/dl (70-90) Allergies Coded Allergies: No Known Allergies (Verified , 05/14/17) Medications Current Inpatient Medications Medications (Trade) Dose Ordered Sig/Ministerio Route Start Time Stop Time Status Last Admin Dose Admin Acetaminophen (Tylenol Tab) 650 mg Q4H PRN PO 05/14/17 12:00 06/13/17 11:59 Al Hydrox/Mg Hydrox/Simethicone (Maalox Max Susp) 15 ml Q4H PRN PO 05/14/17 12:00 06/13/17 11:59 Magnesium Hydroxide (Milk Of Magnesia Susp) 30 ml Q12H PRN PO 05/14/17 12:00 06/13/17 11:59 Zolpidem Tartrate (Ambien Tab) 5 mg HSZ PRN PO 05/14/17 12:00 06/13/17 11:59 05/17/17 21:55 5 MG Polyethylene (Miralax Powder Packet) 17 gm DAILY PRN PO 05/14/17 12:00 06/13/17 11:59 Ketoconazole (Nizoral 2% Crm) 2 appln Q12 EXT 05/14/17 21:00 05/24/17 20:59 05/20/17 08:58 2 APPLN Lactobacillus Acidophilus (Lactinex Granules Pack) 1 gm TIDM PO 05/14/17 16:45 06/13/17 16:44 05/20/17 17:14 1 GM Bisacodyl (Dulcolax Supp) 10 mg DAILY PRN [place] 05/14/17 12:15 06/13/17 12:14 Clopidogrel Bisulfate (plAVix TAB) 75 mg DAILY PO 05/15/17 09:00 06/14/17 08:59 05/20/17 09:03 75 MG Sodium Biphosphate/ Sodium Phosphate (Fleet Enema) 200 ml DAILY PRN [place] 05/14/17 12:15 06/13/17 12:14 Cholecalciferol (Vitamin D Tab) 2,000 inter.unit QAM PO 05/15/17 09:00 06/14/17 08:59 05/20/17 08:58 2,000 INTER.UNIT Albuterol/ Ipratropium (Duoneb) 3 ml QIDR INH 05/15/17 12:00 06/14/17 11:59 05/20/17 15:28 3 ML Albuterol/ Ipratropium (Duoneb) 3 ml Q2R PRN INH 05/15/17 09:00 06/14/17 08:59 05/18/17 09:32 3 ML Cefepime HCl (Consult) 1 ea UD PRN N/A 05/15/17 13:30 06/14/17 13:29 Cefepime HCl 2000 mg/Dextrose 112.5 ml @ 225 mls/hr Q24H IV 05/16/17 08:00 05/29/17 07:59 05/20/17 08:58 225 MLS/HR Heparin Sodium (Porcine) (Heparin Sq 5000 Unit/0.5ml) 5,000 unit Q12 SQ 05/15/17 21:00 06/14/17 20:59 05/20/17 09:03 5,000 UNIT Miscellaneous Information (Consult Glycemic Management Pharmacy) 1 ea UD PRN N/A 05/18/17 18:00 06/17/17 17:59 Insulin Aspart (novoLOG ASPART) SLIDING SCALE ACHS SC 05/18/17 21:00 06/17/17 20:59 05/20/17 09:02 2 UNITS Glucose (Glucose 40% Gel) 15-30 GRAMS 15 GRAMS... UD PRN PO 05/18/17 19:15 06/17/17 19:14 Glucose (Glucose Chew Tab) 4-8 Tablets 4 Tabl... UD PRN PO 05/18/17 19:15 06/17/17 19:14 Dextrose (Dextrose 50% 50ML Syringe) 25-50ML OF 50% DW IV FOR... UD PRN IV 05/18/17 19:15 06/17/17 19:14 Glucagon (Glucagon Inj) 1 mg UD PRN SQ 05/18/17 19:15 06/17/17 19:14 Ondansetron HCl (Zofran Inj) 4 mg Q6H PRN IV 05/19/17 07:30 06/18/17 07:29 Furosemide 40 mg/ Syringe 4 ml @ 4 mls/min DAILY IV 05/19/17 09:00 06/18/17 08:59 05/20/17 08:48 4 MLS/MIN Prednisone (PredniSONE TAB) 10 mg QAM PO 05/19/17 09:00 06/15/17 08:59 05/20/17 08:58 10 MG Metoprolol Tartrate (Lopressor Iv) 2.5 mg Q6 IV. 05/19/17 12:00 06/18/17 11:59 05/20/17 13:00 2.5 MG Insulin Glargine (Lantus Solostar Pen) SEE PROTOCOL TEXT 2100 SC 05/20/17 21:00 06/19/17 20:59 Impression (1) Acute renal insufficiency (2) Gram negative septicemia (3) Diastolic CHF, acute (4) UTI (urinary tract infection) (5) Hypertension (6) Type 2 diabetes mellitus without complications Mary is an 81-year-old female with acute on chronic renal insufficiency. Laboratory studies continue to show renal recovery. WILBERTO consistent with ATN in the setting of gram-negative sepsis and urinary tract infection. Renal US did not show obstruction. Patient is clinically responded to antibiotic therapy. She was transitioned to furosemide to assist with diuresis in the setting of volume overload. Telmisartan and HCTZ have been held. Recommendations -- Continue furosemide to encourage slightly negative fluid balance -- Document I/O's -- Hold telmisartan -- Medications appropriately dosed for renal function -- Repeat metabolic profile tomorrow AM -- Follow up in the nephrology clinic within 1-2 weeks of discharge
[2017-05-20] MEDS: INSULIN GLARGINE SOLOSTAR 100 UNITS/ML 3 ML PEN SC SCH (20:26)
[2017-05-21] VITALS (12 sets, daily range): BP systolic 106–133; BP diastolic 66–77; PULSE 72–91; TEMP 36.3–36.6; O2SAT 90–97
[2017-05-21 06:00] LABS: HEMATOCRIT 30.7 % (37-47); MEAN CELL VOLUME 93.6 fL (80-100); MEAN CORPUSCULAR HEMOGLOBIN 29.3 pg (25-34); MEAN CORPUSCULAR HGB CONC 31.3 g/dl (32-36); MEAN PLATELET VOLUME 10.8 fL (7.4-10.4); PLATELET COUNT 195 K/uL (130-400); RED BLOOD COUNT 3.28 M/uL (4.2-5.4); WHITE BLOOD COUNT 11.08 K/uL (4.8-10.8)
[2017-05-21] MEDS: METOPROLOL TARTRATE 1 MG/ML VIAL IV. SCH ×3 (06:14→17:40)
[2017-05-21 06:34] LABS: BUN/CREATININE RATIO 36.9 (10-20); CREATININE 1.8 mg/dl (0.60-1.20); PHOSPHORUS 3.8 mg/dl (2.5-4.9); POTASSIUM 4.1 mmol/L (3.5-5.1)
[2017-05-21] MEDS: ALBUT/IPRATROP 3MG/0.5MG NEB 3 ML VIAL INH SCH ×4 (07:15→19:03)
[2017-05-21] MEDS: LACTOBACILLUS ACIDOPHILUS 1 GM PACK PO SCH (07:53)
[2017-05-21] MEDS: FUROSEMIDE INJ 40 MG in SYRINGE 0 ML IV SCH (07:53)
[2017-05-21] MEDS: CLOPIDOGREL BISULFATE 75 MG TAB PO SCH (07:53)
[2017-05-21] MEDS: CHOLECALCIFEROL 1000 INTER.UNIT TAB PO SCH (07:54)
[2017-05-21] MEDS: KETOCONAZOLE 2% CR 15 GM TUBE EXT SCH ×2 (07:55→20:56)
[2017-05-21] MEDS: HEPARIN SOD 5000 UNIT/0.5 ML CARP SQ SCH ×2 (08:17→20:59)
[2017-05-21] MEDS: CEFEPIME IV 2000 MG in DEXTROSE 5% 100ML IV SCH (08:19)
[2017-05-21] MEDS: INSULIN ASPART 100 UNITS/ML 3 ML PEN SC SCH ×4 (08:19→20:56)
--- NOTE | 2017-05-21 11:27 | Nephrology Progress Note ---
Nephrology Progress Note Date of Service May 21, 2017. Chief Complaint Follow-up for acute kidney injury. Alexandrea Hernandez was seen and examined in her room this morning with her daughter at bedside. She denies any complaint, no shortness of breath or chest pain. No fever overnight fever. Renal function continues to improve, creatinine was 1.8 this morning, other electrolyte acceptable. Has been having decent urine output. Blood pressure has been stable. Review of Systems A complete review of systems was performed. Pertinent positives are noted above. All other systems are negative. Vital Signs Last 8 Hrs Date Time Temp Pulse Resp B/P (MAP) Pulse Ox O2 Delivery O2 Flow Rate FiO2 05/21/17 08:12 36.6 73 16 129/77 (94) 95 Nasal Cannula 3.0 05/21/17 06:14 83 120/76 05/21/17 04:05 93 Nasal Cannula 3.0 05/21/17 04:00 36.4 83 20 120/76 (91) 93 Nasal Cannula 3.0 Last Recorded Weight Weight (Kilograms): 74.900 Physical Exam GENERAL: Elderly female, AAA x 3, pleasant, healthy-appearing, not in any distress. NECK: Supple, no JVD. RESPIRATORY: Normal breathing efforts, no accessory muscle use, clear to auscultation bilaterally, no wheezes or rales. CARDIOVASCULAR: S1, S2 normal, rate rhythm regular. EXTREMITY: No lower extremity edema NEURO: speech fluent, has weakness of right upper and lower extremity PSYCHIATRY: Normal mood and judgment Family History No pertinent family history Social History Smoking Status: Never smoker Drug Use: none Marital Status: Housing Status: lives with family Occupation: retired Laboratory Results Past 24 Hours 05/21/17 05:38 05/21/17 05:38 Test 05/20/17 16:43 05/20/17 20:18 05/21/17 05:38 05/21/17 06:26 Bedside Glucose 173 mg/dl (70-90) 147 mg/dl (70-90) 108 mg/dl (70-90) Red Blood Count 3.28 M/uL (4.2-5.4) Mean Corpuscular Volume 93.6 fL (80-100) Mean Corpuscular Hemoglobin 29.3 pg (25-34) Mean Corpuscular Hemoglobin Concent 31.3 g/dl (32-36) RDW Standard Deviation 52.0 fL (36.4-46.3) RDW Coefficient of Variation 15.3 % (11.5-14.5) Mean Platelet Volume 10.8 fL (7.4-10.4) Nucleated RBC Absolute Count (auto) 0.04 K/uL (0-0) Nucleated Red Blood Cells % 0.4 % Anion Gap 9.0 mmol/L (3-11) Est Creatinine Clear Calc Drug Dose 23.4 ml/min Estimated GFR () 29.9 Estimated GFR (Non- 25.8 BUN/Creatinine Ratio 36.9 (10-20) Calcium Level 9.0 mg/dl (8.5-10.1) Phosphorus Level 3.8 mg/dl (2.5-4.9) Albumin 2.2 gm/dl (3.4-5.0) Allergies Coded Allergies: No Known Allergies (Verified , 05/14/17) Medications Current Inpatient Medications Medications (Trade) Dose Ordered Sig/Ministerio Route Start Time Stop Time Status Last Admin Dose Admin Acetaminophen (Tylenol Tab) 650 mg Q4H PRN PO 05/14/17 12:00 06/13/17 11:59 Al Hydrox/Mg Hydrox/Simethicone (Maalox Max Susp) 15 ml Q4H PRN PO 05/14/17 12:00 06/13/17 11:59 Magnesium Hydroxide (Milk Of Magnesia Susp) 30 ml Q12H PRN PO 05/14/17 12:00 06/13/17 11:59 Zolpidem Tartrate (Ambien Tab) 5 mg HSZ PRN PO 05/14/17 12:00 06/13/17 11:59 05/17/17 21:55 5 MG Polyethylene (Miralax Powder Packet) 17 gm DAILY PRN PO 05/14/17 12:00 06/13/17 11:59 Ketoconazole (Nizoral 2% Crm) 2 appln Q12 EXT 05/14/17 21:00 05/24/17 20:59 05/21/17 07:55 2 APPLN Lactobacillus Acidophilus (Lactinex Granules Pack) 1 gm TIDM PO 05/14/17 16:45 06/13/17 16:44 05/21/17 07:53 1 GM Bisacodyl (Dulcolax Supp) 10 mg DAILY PRN [place] 05/14/17 12:15 06/13/17 12:14 Clopidogrel Bisulfate (plAVix TAB) 75 mg DAILY PO 05/15/17 09:00 06/14/17 08:59 05/21/17 07:53 75 MG Sodium Biphosphate/ Sodium Phosphate (Fleet Enema) 200 ml DAILY PRN [place] 05/14/17 12:15 06/13/17 12:14 Cholecalciferol (Vitamin D Tab) 2,000 inter.unit QAM PO 05/15/17 09:00 06/14/17 08:59 05/21/17 07:54 2,000 INTER.UNIT Albuterol/ Ipratropium (Duoneb) 3 ml QIDR INH 05/15/17 12:00 06/14/17 11:59 05/21/17 07:15 3 ML Albuterol/ Ipratropium (Duoneb) 3 ml Q2R PRN INH 05/15/17 09:00 06/14/17 08:59 05/18/17 09:32 3 ML Cefepime HCl (Consult) 1 ea UD PRN N/A 05/15/17 13:30 06/14/17 13:29 Cefepime HCl 2000 mg/Dextrose 112.5 ml @ 225 mls/hr Q24H IV 05/16/17 08:00 05/29/17 07:59 05/21/17 08:19 225 MLS/HR Heparin Sodium (Porcine) (Heparin Sq 5000 Unit/0.5ml) 5,000 unit Q12 SQ 05/15/17 21:00 06/14/17 20:59 05/21/17 08:17 5,000 UNIT Miscellaneous Information (Consult Glycemic Management Pharmacy) 1 ea UD PRN N/A 05/18/17 18:00 06/17/17 17:59 Insulin Aspart (novoLOG ASPART) SLIDING SCALE ACHS SC 05/18/17 21:00 06/17/17 20:59 05/20/17 09:02 2 UNITS Glucose (Glucose 40% Gel) 15-30 GRAMS 15 GRAMS... UD PRN PO 05/18/17 19:15 06/17/17 19:14 Glucose (Glucose Chew Tab) 4-8 Tablets 4 Tabl... UD PRN PO 05/18/17 19:15 06/17/17 19:14 Dextrose (Dextrose 50% 50ML Syringe) 25-50ML OF 50% DW IV FOR... UD PRN IV 05/18/17 19:15 06/17/17 19:14 Glucagon (Glucagon Inj) 1 mg UD PRN SQ 05/18/17 19:15 06/17/17 19:14 Ondansetron HCl (Zofran Inj) 4 mg Q6H PRN IV 05/19/17 07:30 06/18/17 07:29 05/21/17 08:18 4 MG Furosemide 40 mg/ Syringe 4 ml @ 4 mls/min DAILY IV 05/19/17 09:00 06/18/17 08:59 05/21/17 07:53 4 MLS/MIN Prednisone (PredniSONE TAB) 10 mg QAM PO 05/19/17 09:00 06/15/17 08:59 05/21/17 07:53 10 MG Metoprolol Tartrate (Lopressor Iv) 2.5 mg Q6 IV. 05/19/17 12:00 06/18/17 11:59 05/21/17 06:14 2.5 MG Insulin Glargine (Lantus Solostar Pen) SEE PROTOCOL TEXT 2100 SC 05/20/17 21:00 06/19/17 20:59 05/20/17 20:26 7 UNIT Impression (1) Acute renal insufficiency (2) Gram negative septicemia (3) Diastolic CHF, acute (4) UTI (urinary tract infection) (5) Hypertension (6) Type 2 diabetes mellitus without complications Mary is an 81-year-old female with acute on chronic renal insufficiency. Laboratory studies continue to show renal recovery. WILBERTO consistent with ATN in the setting of gram-negative sepsis and urinary tract infection. Renal US did not show obstruction. Patient is clinically responded to antibiotic therapy. She was transitioned to furosemide to assist with diuresis in the setting of volume overload. Telmisartan and HCTZ have been held. Recommendations -- renal function continues to improve, creatinine 1.8 this morning with baseline creatinine around 1.5, has decent urine output, blood pressure and electrolyte acceptable. Continue furosemide to encourage slightly negative fluid balance -- Document I/O's -- Hold telmisartan -- Medications appropriately dosed for renal function -- Repeat metabolic profile tomorrow AM -- Follow up in the nephrology clinic within 1-2 weeks of discharge
--- NOTE | 2017-05-21 14:58 | Progress Note ---
Subjective Date of Service: May 21, 2017. Subjective Pt evaluation today including: conversation w/ patient, conversation w/ family , physical exam, chart review, lab review, review of studies, review of inpatient medication list Continue doing the same, possible improving, Feeding by Daughter possible decreased appetite Problem List Medical Problems: (1) Acute renal failure Status: Acute (2) Altered mental status Status: Acute (3) History of stroke Status: Chronic (4) Hypertension Status: Chronic (5) Pneumonia Status: Acute (6) UTI (urinary tract infection) Status: Acute Review of Systems Constitutional: No see HPI, No fever, No chills, No sweats, No weight loss, No weakness, No fatigue, No problem reported Eyes: No see HPI, No worsening of vision, No eye pain, No redness, No discharge , No diplopia, No problem reported Respiratory: No see HPI, No cough, No sputum, No wheezing, No shortness of breath, No dyspnea on exertion, No dyspnea at rest, No hemoptysis, No problem reported Cardiac: No see HPI, No chest pain, No orthopnea, No PND, No edema, No claudication, No palpitations, No problem reported Breast: No see HPI, No breast lump, No change in shape, No nipple discharge, No breast pain, No problem reported Musculoskeletal: No see HPI, No joint pain, No muscle pain, No swelling, No calf pain, No problem reported Female : No see HPI, No dysuria, No urinary frequency, No hematuria, No incontinence, No abnormal vaginal bleeding, No vaginal discharge, No problem reported Neurologic: No see HPI, No memory loss, No paralysis, No weakness, No numbness/ tingling, No vertigo, No balance problems, No problem reported Psychiatric: No see HPI, No depression symptoms, No anhedonism, No anxiety, No insomnia, No substance abuse, No problem reported Heme: No see HPI, No abnormal bleeding/bruising, No clotting problems, No swollen lymph nodes, No night sweats, No problem reported Endo: + fatigue, No excessive thirst, No excessive urination Skin: + rash Objective Vital Signs Date Time Temp Pulse Resp B/P (MAP) Pulse Ox O2 Delivery O2 Flow Rate FiO2 05/21/17 12:25 36.6 91 16 133/66 (88) 91 Nasal Cannula 05/21/17 11:35 80 18 91 Nasal Cannula 2.0 05/21/17 08:12 36.6 73 16 129/77 (94) 95 Nasal Cannula 3.0 05/21/17 06:14 83 120/76 05/21/17 04:05 93 Nasal Cannula 3.0 05/21/17 04:00 36.4 83 20 120/76 (91) 93 Nasal Cannula 3.0 05/21/17 00:45 93 Nasal Cannula 3.0 05/21/17 00:00 36.3 72 20 118/68 (85) 96 Nasal Cannula 3.0 05/20/17 23:40 80 126/80 05/20/17 20:00 93 Nasal Cannula 3.0 05/20/17 19:51 80 126/80 05/20/17 19:37 36.3 90 18 119/81 (94) 93 Nasal Cannula 3.0 05/20/17 19:26 80 18 90 Nasal Cannula 2.0 05/20/17 16:00 Nasal Cannula 3.0 05/20/17 15:30 36.6 79 20 126/80 (95) 94 Nasal Cannula 3.0 05/20/17 15:28 79 18 75 Room Air Physical Exam General Appearance: WD/WN, no apparent distress, + obese Eyes: normal inspection, PERRL, EOMI, sclerae normal ENT: normal ENT inspection, hearing grossly normal, pharynx normal Neck: supple, no adenopathy, thyroid normal, no JVD, no carotid bruits, trachea midline Respiratory/Chest: chest non-tender, normal breath sounds, no respiratory distress, no accessory muscle use, + decreased breath sounds Cardiovascular: regular rate, rhythm, no gallop, no JVD, no murmur, + pertinent finding (1+) Abdomen: normal bowel sounds, non tender, soft, no organomegaly, no pulsatile mass Extremities: normal range of motion, non-tender, normal inspection, no pedal edema, no calf tenderness, normal capillary refill, pelvis stable Neurologic/Psychiatric: rn documentation II-XII nml as tested, normal mood/affect, oriented x 3, + motor weakness (left side Paralyzed which is not new) Skin: normal color, warm/dry, no rash, + pertinent finding (right lower extremity skin rash is improved, no tender, less hot, no drainage) Lymphatic: no adenopathy Laboratory Results Last 24 Hours Test 05/20/17 16:43 6/23/17 20:18 05/21/17 05:38 05/21/17 06:26 Bedside Glucose 173 mg/dl 147 mg/dl 108 mg/dl White Blood Count 11.08 K/uL Red Blood Count 3.28 M/uL Hemoglobin 9.6 g/dL Hematocrit 30.7 % Mean Corpuscular Volume 93.6 fL Mean Corpuscular Hemoglobin 29.3 pg Mean Corpuscular Hemoglobin Concent 31.3 g/dl RDW Standard Deviation 52.0 fL RDW Coefficient of Variation 15.3 % Platelet Count 195 K/uL Mean Platelet Volume 10.8 fL Nucleated RBC Absolute Count (auto) 0.04 K/uL Nucleated Red Blood Cells % 0.4 % Sodium Level 144 mmol/L Potassium Level 4.1 mmol/L Chloride Level 109 mmol/L Carbon Dioxide Level 26 mmol/L Anion Gap 9.0 mmol/L Blood Urea Nitrogen 66 mg/dl Creatinine 1.80 mg/dl Est Creatinine Clear Calc Drug Dose 23.4 ml/min Estimated GFR () 29.9 Estimated GFR (Non- 25.8 BUN/Creatinine Ratio 36.9 Random Glucose 107 mg/dl Calcium Level 9.0 mg/dl Phosphorus Level 3.8 mg/dl Albumin 2.2 gm/dl Test 05/21/17 11:27 Bedside Glucose 114 mg/dl Assessment and Plan 81 yo female with history of ischemic CVA with right sided weakness, admitted on 05/14/2017 from [facility] with fever, hypoxia, dyspnea Leukocytosis, WILBERTO on admission, has been stable and improving - Severe sepsis and bacteremia upon admission: Stable and improving Was having leukocytosis, was worsening possible from steroid use, continue doing better With evidence of organ failure with WILBERTO, hypoxia, hypotension and encephalopathy , no evidence of shock, Proteus UTI on UA Pseudomonas bacteremia, possible from the urinary source, stable improving left lower lobe infiltrate, with choking when eating, check speech to optimize diet, [place] Thick diet per recommendation Right lower extremity cellulitis has ruled out DVT upon admission on 05/15/2017 , cellulitis continue improved was on broad spectrum antibiotics with Cefepime, Zithromax and Zyvox (chosen due to renal failure) ID following, per recs can continue cefepime while inpt (will need for treatment of proteus uti), when stable for d/c can change to po levaquin to complete course, stop 05/29. repeat blood cultures negative. Possible HCAP: patient from SNF, with left lower lung infiltration, see above , tapering Prednisone, Duonebs Acute hypoxic respiratory failure upon admission: Stable and improving , Likely from pneumonia Possible have acute on chronic diastolic CHF exacerbation with Echo shows diastolic dysfunction, which is supported by pulmonary edema and elevated BNP Patient's kidney function continue improve after Lasix , today changed Lasix to by mouth other differential diagnosis include acute PE because of wheezing and elevated BNP, VQ scan, less likely PE Elevated troponin, possible demanding ischemia from worsening CHF acute on chronic diastolic exacerbation, 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 UTI with bacteremia: See above Cellulitis, continue above antibiotics Possible acute kidney failure with unknown etiology with CKD stage III: baseline Cr 1.5-1.8, was elevated on admission at 2.9, likely prerenal patient received Lasix in the ED and again after arriving to the floor Improving, will continue diuretic, 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, continue Lasix because patient's creatinine level improved Patient has multiple medical conditions, prognosis is guarded because of comorbidities and age, discussed with daughter about the condition and care plan , answered all questions - h/o ischemic CVA with residual left-sided weakness: continue Plavix DVT prophylaxis: heparin q12 DNR Patient's condition has been continue stable, discussed with patient's daughter she prefer to be discharged to [facility] on Tuesday Transfer to [facility] today Continued [facility] stay due to: home environment unsafe for pt Discharge planning: home
[2017-05-21] MEDS ORDERED: SACCHAROMYCES BOUL (FLORASTOR) 250 MG CAP PO SCH (16:45)
[2017-05-21] MEDS: LACTOBACILLUS ACIDOPHILUS (FLORANEX) TAB PO SCH (17:39)
[2017-05-21] MEDS: INSULIN GLARGINE SOLOSTAR 100 UNITS/ML 3 ML PEN SC SCH (20:59)
[2017-05-22] VITALS (11 sets, daily range): BP systolic 94–139; BP diastolic 61–77; PULSE 65–85; TEMP 36.3–36.5; O2SAT 90–97
[2017-05-22] MEDS: METOPROLOL TARTRATE 1 MG/ML VIAL IV. SCH ×5 (00:45→23:33)
[2017-05-22] MEDS: INSULIN ASPART 100 UNITS/ML 3 ML PEN SC SCH ×4 (06:30→20:52)
[2017-05-22] MEDS: ALBUT/IPRATROP 3MG/0.5MG NEB 3 ML VIAL INH SCH ×4 (06:55→18:51)
[2017-05-22 07:01] LABS: BUN/CREATININE RATIO 38.5 (10-20); CREATININE 1.7 mg/dl (0.60-1.20); PHOSPHORUS 3.7 mg/dl (2.5-4.9); POTASSIUM 3.7 mmol/L (3.5-5.1)
[2017-05-22 07:17] LABS: CALCIUM 9.2 mg/dl (8.5-10.1)
[2017-05-22] MEDS ORDERED: FUROSEMIDE 40 MG TAB PO SCH (08:00)
[2017-05-22] MEDS: LACTOBACILLUS ACIDOPHILUS (FLORANEX) TAB PO SCH ×3 (08:40→19:19)
[2017-05-22] MEDS: CLOPIDOGREL BISULFATE 75 MG TAB PO SCH (08:41)
[2017-05-22] MEDS: CHOLECALCIFEROL 1000 INTER.UNIT TAB PO SCH (08:42)
[2017-05-22] MEDS: HEPARIN SOD 5000 UNIT/0.5 ML CARP SQ SCH ×2 (08:53→20:54)
[2017-05-22] MEDS: CEFEPIME IV 2000 MG in DEXTROSE 5% 100ML IV SCH (09:16)
[2017-05-22] MEDS: KETOCONAZOLE 2% CR 15 GM TUBE EXT SCH ×2 (09:18→19:18)
--- NOTE | 2017-05-22 11:49 | Nephrology Progress Note ---
Nephrology Progress Note Date of Service May 22, 2017. Chief Complaint Follow-up for acute kidney injury. Alexandrea Hernandez Was seen and examined in her room with her daughter at bedside. She denies any symptoms. Blood pressure stable. She has been in post ATN diuresis , may need more than 3 liters of urine and almost to 2.5 liter net negative as her p.o. intake is poor. Serum sodium increased to 148 however renal function continues to improve slowly, creatinine 1.7 this morning. Review of Systems A complete review of systems was performed. Pertinent positives are noted above. All other systems are negative. Vital Signs Last 8 Hrs Date Time Temp Pulse Resp B/P (MAP) Pulse Ox O2 Delivery O2 Flow Rate FiO2 05/22/17 11:16 72 16 96 Nasal Cannula 3.0 05/22/17 08:02 36.4 73 18 139/77 (97) 97 05/22/17 08:00 Nasal Cannula 2.0 05/22/17 06:58 65 16 90 Nasal Cannula 2.0 05/22/17 06:26 74 134/71 05/22/17 06:24 74 05/22/17 06:19 76 134/71 (92) Last Recorded Weight Weight (Kilograms): 74.900 Physical Exam GENERAL: Elderly female, AAA x 3, pleasant, healthy-appearing, not in any distress. NECK: Supple, no JVD. RESPIRATORY: Normal breathing efforts, no accessory muscle use, clear to auscultation bilaterally, no wheezes or rales. CARDIOVASCULAR: S1, S2 normal, rate rhythm regular. EXTREMITY: No lower extremity edema NEURO: speech fluent, has weakness of right upper and lower extremity PSYCHIATRY: Normal mood and judgment Family History No pertinent family history Social History Smoking Status: Never smoker Drug Use: none Marital Status: Housing Status: lives with family Occupation: retired Laboratory Results Past 24 Hours 05/22/17 06:00 Test 05/21/17 16:27 05/21/17 19:45 05/22/17 06:00 05/22/17 07:50 Bedside Glucose 142 mg/dl (70-90) 169 mg/dl (70-90) 98 mg/dl (70-90) Anion Gap 9.0 mmol/L (3-11) Est Creatinine Clear Calc Drug Dose 24.7 ml/min Estimated GFR () 32.0 Estimated GFR (Non- 27.6 BUN/Creatinine Ratio 38.5 (10-20) Calcium Level 9.2 mg/dl (8.5-10.1) Phosphorus Level 3.7 mg/dl (2.5-4.9) Albumin 2.3 gm/dl (3.4-5.0) Test 05/22/17 11:07 Bedside Glucose 140 mg/dl (70-90) Allergies Coded Allergies: No Known Allergies (Verified , 05/14/17) Medications Current Inpatient Medications Medications (Trade) Dose Ordered Sig/Ministerio Route Start Time Stop Time Status Last Admin Dose Admin Acetaminophen (Tylenol Tab) 650 mg Q4H PRN PO 05/14/17 12:00 06/13/17 11:59 Al Hydrox/Mg Hydrox/Simethicone (Maalox Max Susp) 15 ml Q4H PRN PO 05/14/17 12:00 06/13/17 11:59 Magnesium Hydroxide (Milk Of Magnesia Susp) 30 ml Q12H PRN PO 05/14/17 12:00 06/13/17 11:59 Zolpidem Tartrate (Ambien Tab) 5 mg HSZ PRN PO 05/14/17 12:00 06/13/17 11:59 05/17/17 21:55 5 MG Polyethylene (Miralax Powder Packet) 17 gm DAILY PRN PO 05/14/17 12:00 06/13/17 11:59 Ketoconazole (Nizoral 2% Crm) 2 appln Q12 EXT 05/14/17 21:00 05/24/17 20:59 05/22/17 09:18 2 APPLN Bisacodyl (Dulcolax Supp) 10 mg DAILY PRN LA 05/14/17 12:15 06/13/17 12:14 Clopidogrel Bisulfate (plAVix TAB) 75 mg DAILY PO 05/15/17 09:00 06/14/17 08:59 05/22/17 08:41 75 MG Sodium Biphosphate/ Sodium Phosphate (Fleet Enema) 200 ml DAILY PRN LA 05/14/17 12:15 06/13/17 12:14 Cholecalciferol (Vitamin D Tab) 2,000 inter.unit QAM PO 05/15/17 09:00 06/14/17 08:59 05/22/17 08:42 2,000 INTER.UNIT Albuterol/ Ipratropium (Duoneb) 3 ml QIDR INH 05/15/17 12:00 06/14/17 11:59 05/22/17 11:16 3 ML Albuterol/ Ipratropium (Duoneb) 3 ml Q2R PRN INH 05/15/17 09:00 06/14/17 08:59 05/18/17 09:32 3 ML Cefepime HCl (Consult) 1 ea UD PRN N/A 05/15/17 13:30 06/14/17 13:29 Cefepime HCl 2000 mg/Dextrose 112.5 ml @ 225 mls/hr Q24H IV 05/16/17 08:00 05/29/17 07:59 05/22/17 09:16 225 MLS/HR Heparin Sodium (Porcine) (Heparin Sq 5000 Unit/0.5ml) 5,000 unit Q12 SQ 05/15/17 21:00 06/14/17 20:59 05/22/17 08:53 5,000 UNIT Miscellaneous Information (Consult Glycemic Management Pharmacy) 1 ea UD PRN N/A 05/18/17 18:00 06/17/17 17:59 Insulin Aspart (novoLOG ASPART) SLIDING SCALE ACHS SC 05/18/17 21:00 06/17/17 20:59 05/20/17 09:02 2 UNITS Glucose (Glucose 40% Gel) 15-30 GRAMS 15 GRAMS... UD PRN PO 05/18/17 19:15 06/17/17 19:14 Glucose (Glucose Chew Tab) 4-8 Tablets 4 Tabl... UD PRN PO 05/18/17 19:15 06/17/17 19:14 Dextrose (Dextrose 50% 50ML Syringe) 25-50ML OF 50% DW IV FOR... UD PRN IV 05/18/17 19:15 06/17/17 19:14 Glucagon (Glucagon Inj) 1 mg UD PRN SQ 05/18/17 19:15 06/17/17 19:14 Ondansetron HCl (Zofran Inj) 4 mg Q6H PRN IV 05/19/17 07:30 06/18/17 07:29 05/21/17 08:18 4 MG Prednisone (PredniSONE TAB) 10 mg QAM PO 05/19/17 09:00 06/15/17 08:59 05/22/17 08:41 10 MG Metoprolol Tartrate (Lopressor Iv) 2.5 mg Q6 IV. 05/19/17 12:00 06/18/17 11:59 05/22/17 06:26 2.5 MG Insulin Glargine (Lantus Solostar Pen) SEE PROTOCOL TEXT 2100 SC 05/20/17 21:00 06/19/17 20:59 05/21/17 20:59 7 UNIT Lactobacillus Acidophilus (Floranex Tab) 1 tab TIDM PO 05/21/17 16:45 06/20/17 16:44 05/22/17 08:40 1 TAB Dextrose 1,000 ml @ 100 mls/hr Q10H IV 05/22/17 09:45 06/21/17 09:44 Impression (1) Acute renal insufficiency (2) Gram negative septicemia (3) Diastolic CHF, acute (4) UTI (urinary tract infection) (5) Hypertension (6) Type 2 diabetes mellitus without complications Mary is an 81-year-old female with acute on chronic renal insufficiency. Laboratory studies continue to show renal recovery. WILBERTO consistent with ATN in the setting of gram-negative sepsis and urinary tract infection. Renal US did not show obstruction. Patient is clinically responded to antibiotic therapy. She was transitioned to furosemide to assist with diuresis in the setting of volume overload. Telmisartan and HCTZ have been held. Recommendations -- renal function continues to improve slowly, creatinine 1.7 this morning with baseline creatinine around 1.5 -- discontinue Lasix as she seems to be in post ATN diuresis phase and made more than 3 liters of urine and serum sodium is going up --Start on D5 water 100 mL/hour for 1 liter -- Document I/O's -- Hold telmisartan -- Repeat metabolic profile tomorrow AM -- Follow up in the nephrology clinic within 1-2 weeks of discharge
--- NOTE | 2017-05-22 11:57 | Pharmacy Progress Note ---
Glycemic Control Progress Note Date of Service May 22, 2017. Scope Glycemic Pharmacist consulted for glycemic control to write orders per [facility] inpatient glycemic control protocol. Objective Accuchecks BSG (last 24hrs): Test 05/21/17 16:27 05/21/17 19:45 05/22/17 06:00 05/22/17 07:50 Bedside Glucose 142 mg/dl (70-90) 169 mg/dl (70-90) 98 mg/dl (70-90) Random Glucose 109 mg/dl (70-99) Test 05/22/17 11:07 Bedside Glucose 140 mg/dl (70-90) HbA1c: Test 05/15/17 05:47 Hemoglobin A1c 6.3 % (4.5-5.6) H Recent Pertinent Medications The patient is currently receiving: * Basal insulin: Lantus 7 units every 24 hours given at bedtime if BSG > 140 * Correctional Insulin: Novolog Correction per scale ACHS Goal Range: Low 140 mg/dL - High 180 mg/dL Correction Factor: 25 mg/dL/unit * Prandial insulin: Per carb ratio of 1 unit per 8 grams CHO consumed Outpatient Anti-Diabetic Meds diet controlled/ pre-diabetes Assessment & Plan ASSESSMENT: * See progress note from 05/19 for more background info, in short: * Pt receiving SQ basal bolus insulin regimen for hyperglycemia secondary to baseline pre-diabetes, stress/infection, steroids * Patient is currently receiving an average of 9 units of insulin per day * 7 units of basal insulin * 2 units of prandial/correctional insulin * BSGs 108, 114, 142, 169, 98, 140mg/dl over the past 24hrs * Changes needed to insulin regimen: * AM Fasting BSG = 108, 98 mg/dl today. This is slightly below goal range for patient based on inpatient targets and co-morbidities. Therefore Basal insulin needs decreased. Pt is not on basal insulin as an outpatient. Will continue to taper this down based on BSG trends. * Post-prandial BSGs are in range @ 114, 142, 169, 140, therefore no changes needed to CF/CR OR PLAN FOR INPATIENT GLYCEMIC CONTROL: * Basal insulin: Decrease * Lantus 5 units SQ HS if BSG > 140 * Bolus insulin: No change * NovoLog per scale ACHS or Q6hrs while NPO * Goal Range: Low 140 mg/dL - High 180 mg/dL * Correction Factor: 25 mg/dL/unit * Nutritional / Prandial insulin per carb ratio of 1 unit per 8 grams CHO consumed RECOMMENDATIONS FOR DISCHARGE: * A1c = 6.3% on 05/15/17 * HbA1c of 5.7-6.4% indicates "pre-diabetes" --> ADA recommendation is to institute diabetes and atherosclerosis prevention * Please note that the plan above was derived based on current level of insulin resistance and hospital stress. These recommendations are appropriate for inpatient admission only. Plan of care upon discharge will need to be reassessed to avoid potential outpatient hypo/hyperglycemia. Thank you.
[2017-05-22] MEDS: DEXTROSE 5% 1000ML 1,000 ML IV SCH ×2 (12:16→19:17)
--- NOTE | 2017-05-22 12:23 | Progress Note ---
Subjective Date of Service: May 22, 2017. Subjective Pt evaluation today including: conversation w/ patient, physical exam, chart review, lab review, review of studies, review of inpatient medication list Doing the same, getting feeding, looks better than yesterday, reported doing "wonderful", no other complaint Problem List Medical Problems: (1) Acute renal failure Status: Acute (2) Altered mental status Status: Acute (3) History of stroke Status: Chronic (4) Hypertension Status: Chronic (5) Pneumonia Status: Acute (6) UTI (urinary tract infection) Status: Acute Review of Systems Constitutional: No fever, No chills ENT: No see HPI, No hearing loss, No unusual epistaxis Respiratory: + shortness of breath Cardiac: No chest pain, No orthopnea Abdomen: No pain, No nausea Musculoskeletal: No joint pain Female : No dysuria, No urinary frequency Psychiatric: No depression symptoms Endo: No fatigue Skin: + rash Objective Vital Signs Date Time Temp Pulse Resp B/P (MAP) Pulse Ox O2 Delivery O2 Flow Rate FiO2 05/22/17 11:16 72 16 96 Nasal Cannula 3.0 05/22/17 08:02 36.4 73 18 139/77 (97) 97 05/22/17 08:00 Nasal Cannula 2.0 05/22/17 06:58 65 16 90 Nasal Cannula 2.0 05/22/17 06:26 74 134/71 05/22/17 06:24 74 05/22/17 06:19 76 134/71 (92) 05/22/17 00:45 77 104/67 05/22/17 00:36 77 114/72 (86) 05/22/17 00:30 Nasal Cannula 2.0 05/21/17 23:43 36.4 85 20 111/68 (82) 90 Nasal Cannula 2.0 05/21/17 19:03 77 14 97 Nasal Cannula 3.0 05/21/17 18:00 Nasal Cannula 3.0 05/21/17 17:40 91 106/66 05/21/17 16:53 36.5 91 18 92 3.0 05/21/17 15:21 36.5 91 18 106/66 (79) 92 Nasal Cannula 3.0 05/21/17 15:20 82 18 94 Nasal Cannula 2.0 05/21/17 12:25 36.6 91 16 133/66 (88) 91 Nasal Cannula Physical Exam General Appearance: WD/WN, no apparent distress, + pertinent finding (pleasant and confused, which is not new for her) Eyes: normal inspection, PERRL, EOMI, sclerae normal ENT: normal ENT inspection, hearing grossly normal, pharynx normal Neck: supple, no adenopathy, thyroid normal, no JVD, no carotid bruits, trachea midline Respiratory/Chest: chest non-tender, normal breath sounds, no respiratory distress, no accessory muscle use, + decreased breath sounds Cardiovascular: regular rate, rhythm, no edema, no gallop, no JVD, no murmur Abdomen: normal bowel sounds, non tender, soft, no organomegaly, no pulsatile mass, + pertinent finding (Calle catheter is in place) Extremities: normal range of motion, non-tender, normal inspection, no pedal edema, no calf tenderness, normal capillary refill, pelvis stable, + swelling ( is better), + pertinent finding (right lower extremity red and hot is almost gone) Neurologic/Psychiatric: + pertinent finding (normal mood, left-sided weakness paralyzed is not new) Skin: normal color, warm/dry, no rash Lymphatic: no adenopathy Laboratory Results Last 24 Hours Test 05/21/17 16:27 05/21/17 19:45 05/22/17 06:00 05/22/17 07:50 Bedside Glucose 142 mg/dl 169 mg/dl 98 mg/dl Sodium Level 148 mmol/L Potassium Level 3.7 mmol/L Chloride Level 109 mmol/L Carbon Dioxide Level 30 mmol/L Anion Gap 9.0 mmol/L Blood Urea Nitrogen 65 mg/dl Creatinine 1.70 mg/dl Est Creatinine Clear Calc Drug Dose 24.7 ml/min Estimated GFR () 32.0 Estimated GFR (Non- 27.6 BUN/Creatinine Ratio 38.5 Random Glucose 109 mg/dl Calcium Level 9.2 mg/dl Phosphorus Level 3.7 mg/dl Albumin 2.3 gm/dl Test 05/22/17 11:07 Bedside Glucose 140 mg/dl Assessment and Plan 81 yo female with history of ischemic CVA with right sided weakness, admitted on 05/14/2017 from [facility] with fever, hypoxia, dyspnea Leukocytosis, WILBERTO on admission, has been stable and improving - Severe sepsis and bacteremia upon admission: Stable and improving Was having leukocytosis, was worsening possible from steroid use, continue doing better With evidence of organ failure with WILBERTO, hypoxia, hypotension and encephalopathy , no evidence of shock, Proteus UTI on UA : Stable Pseudomonas bacteremia, possible from the urinary source, stable improving left lower lobe infiltrate, with choking when eating, check speech to optimize diet, [place] Thick diet per recommendation Right lower extremity cellulitis has ruled out DVT upon admission on 05/15/2017 , cellulitis continue improved was on broad spectrum antibiotics with Cefepime, Zithromax and Zyvox (chosen due to renal failure) ID following, per recs can continue cefepime while inpt (will need for treatment of proteus uti), Per recommend of infectious disease , when stable for d/c can change to po levaquin to complete course, stop 05/29. repeat blood cultures negative. I have stop cefepime and start renal dose on Levaquin Possible HCAP: patient from SNF, with left lower lung infiltration, see above , continue tapering Prednisone, Duonebs Acute hypoxic respiratory failure upon admission: Stable and improving , Likely from pneumonia Possible acute kidney failure with unknown etiology with CKD stage III: Neck a mentioned in the above possible from renal congestion from CHF which is diastolic CHF baseline Cr 1.5-1.8, was elevated on admission at 2.9, patient received Lasix in the ED and again after arriving to the floor Renal function continued to improve until today we found has hypernatremia possible ATN, Diuretic has been hold Today has hypernatremia And possible ATN per special education science teacher Possible have acute on chronic diastolic CHF exacerbation with Echo shows diastolic dysfunction, which is supported by pulmonary edema and elevated BNP Patient's kidney function continue improve after Lasix , yesterday and Lasix was changed to by mouth Lasix discontinued because of hypernatremia and possible ATN [employer]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, will follow-up sodium level and kidney function other differential diagnosis include acute PE because of wheezing and elevated BNP, VQ scan, less likely PE Elevated troponin, possible demanding ischemia from worsening CHF acute on chronic diastolic exacerbation, has consult power barker operator UTI with bacteremia: See above Cellulitis, continue above antibiotics Patient has multiple medical conditions, prognosis is guarded because of comorbidities and age, discussed with daughter about the condition and care plan , answered all questions - h/o ischemic CVA with residual left-sided weakness: continue Plavix DVT prophylaxis: heparin q12 DNR Patient's condition has been continue stable, discussed with patient's daughter she prefers to be discharged to [facility] on Tuesday If kidney condition continued to be stable and sodium condition resolved patient could be discharged to [facility] [place] Continued [facility] [place] stay due to: home environment unsafe for pt Discharge planning: home
[2017-05-22] MEDS: LEVOFLOXACIN 750 MG TAB PO SCH (13:29)
[2017-05-22] MEDS: INSULIN GLARGINE SOLOSTAR 100 UNITS/ML 3 ML PEN SC SCH (20:54)
[2017-05-23] MEDS: DEXTROSE 5% 1000ML 1,000 ML IV SCH (05:01)
[2017-05-23] MEDS: METOPROLOL TARTRATE 1 MG/ML VIAL IV. SCH ×2 (05:47→13:07)
[2017-05-23 07:10] VITALS: BP 112/51; PULSE 69; TEMP 36.3; O2SAT 96
[2017-05-23 07:16] LABS: BUN/CREATININE RATIO 34.3 (10-20); CALCIUM 8.7 mg/dl (8.5-10.1); CREATININE 1.6 mg/dl (0.60-1.20); MAGNESIUM 1.7 mg/dl (1.8-2.4); PHOSPHORUS 2.5 mg/dl (2.5-4.9); POTASSIUM 3.2 mmol/L (3.5-5.1)
[2017-05-23] MEDS: ALBUT/IPRATROP 3MG/0.5MG NEB 3 ML VIAL INH SCH ×3 (07:28→15:28)
[2017-05-23] MEDS: LACTOBACILLUS ACIDOPHILUS (FLORANEX) TAB PO SCH ×3 (08:39→17:16)
[2017-05-23] MEDS: CHOLECALCIFEROL 1000 INTER.UNIT TAB PO SCH (08:40)
[2017-05-23] MEDS: CLOPIDOGREL BISULFATE 75 MG TAB PO SCH (08:40)
[2017-05-23] MEDS: KETOCONAZOLE 2% CR 15 GM TUBE EXT SCH ×2 (08:41→21:19)
[2017-05-23] MEDS: MAGNESIUM OXIDE 400 MG TAB PO SCH ×2 (08:44→21:18)
[2017-05-23] MEDS: HEPARIN SOD 5000 UNIT/0.5 ML CARP SQ SCH ×2 (08:50→21:25)
[2017-05-23] MEDS ORDERED: POTASSIUM CHLORIDE 10 MEQ TABCR PO ONE (09:15)
[2017-05-23] MEDS: INSULIN ASPART 100 UNITS/ML 3 ML PEN SC SCH ×4 (09:32→21:00)
--- NOTE | 2017-05-23 10:06 | Pharmacy Progress Note ---
Glycemic Control Progress Note Date of Service May 23, 2017. Scope Glycemic Pharmacist consulted for glycemic control to write orders per [facility] inpatient glycemic control protocol. Objective Accuchecks BSG (last 24hrs): Test 05/22/17 11:07 05/22/17 16:52 05/22/17 20:18 05/23/17 06:15 Bedside Glucose 140 mg/dl (70-90) 218 mg/dl (70-90) 160 mg/dl (70-90) Random Glucose 171 mg/dl (70-99) Test 05/23/17 07:44 Bedside Glucose 177 mg/dl (70-90) HbA1c: Test 05/15/17 05:47 Hemoglobin A1c 6.3 % (4.5-5.6) H Recent Pertinent Medications The patient is currently receiving: * Basal insulin: Lantus 5 units every 24 hours * Correctional Insulin: Novolog Correction per scale ACHS Goal Range: Low 140 mg/dL - High 180 mg/dL Correction Factor: 25 mg/dL/unit * Prandial insulin: Per carb ratio of 1 unit per 8 grams CHO consumed Assessment & Plan ASSESSMENT: * See progress note from 05/19 for more background info, in short: * Pt receiving SQ basal bolus insulin regimen for hyperglycemia secondary to baseline pre-diabetes, stress/infection, steroids * Patient is currently receiving an average of 8 units of insulin per day * 5 units of basal insulin * 3 units of prandial/correctional insulin * BSGs 98, 140, 218, 160 mg/dl over the past 24hrs * Changes needed to insulin regimen: * AM Fasting BSG = 177 mg/dl today. After fasting BSG yesterday, D5 @100 cc/hr added per nephro. BSGs responded to continuous dextrose and trended up throughout the day/evening. This AM after BSG taken, D5 discontinued. I assume BSGs will begin to trend back down to baseline throughout today and basal insulin no longer necessary. * Post-prandial BSGs elevated due to dextrose which is now stopped. Continue current orders. PLAN FOR INPATIENT GLYCEMIC CONTROL: * Discontinue Basal Insulin * Bolus insulin: No change * NovoLog per scale ACHS or Q6hrs while NPO * Goal Range: Low 140 mg/dL - High 180 mg/dL * Correction Factor: 25 mg/dL/unit * Nutritional / Prandial insulin per carb ratio of 1 unit per 8 grams CHO consumed RECOMMENDATIONS FOR DISCHARGE: * A1c = 6.3% on 05/15/17 * HbA1c of 5.7-6.4% indicates "pre-diabetes" --> ADA recommendation is to institute diabetes and atherosclerosis prevention * Please note that the plan above was derived based on current level of insulin resistance and hospital stress. These recommendations are appropriate for inpatient admission only. Plan of care upon discharge will need to be reassessed to avoid potential outpatient hypo/hyperglycemia. Thank you.
--- NOTE | 2017-05-23 11:05 | Nephrology Progress Note ---
Nephrology Progress Note Date of Service May 23, 2017. Chief Complaint Follow-up for acute kidney injury. Alexandrea Hernandez was seen and examined in her room this morning with her daughter at bedside. she looks comfortable, denies any symptoms. Her p.o. intake has been extremely poor. Blood pressure stable. Renal function continues to improve creatinine 1.6 this morning which is close to her baseline. Serum sodium improved to 138. Review of Systems A complete review of systems was performed. Pertinent positives are noted above. All other systems are negative. Vital Signs Last 8 Hrs Date Time Temp Pulse Resp B/P (MAP) Pulse Ox O2 Delivery O2 Flow Rate FiO2 05/23/17 07:10 36.3 69 18 112/51 (71) 96 05/23/17 05:47 73 127/74 Last Recorded Weight Weight (Kilograms): 74.900 Physical Exam GENERAL: Elderly female, AAA x 3, pleasant, healthy-appearing, not in any distress. NECK: Supple, no JVD. RESPIRATORY: Normal breathing efforts, no accessory muscle use, clear to auscultation bilaterally, no wheezes or rales. CARDIOVASCULAR: S1, S2 normal, rate rhythm regular. EXTREMITY: No lower extremity edema NEURO: speech fluent, has weakness of right upper and lower extremity PSYCHIATRY: Normal mood and judgment Family History No pertinent family history Social History Smoking Status: Never smoker Drug Use: none Marital Status: Housing Status: lives with family Occupation: retired Laboratory Results Past 24 Hours 05/23/17 06:15 Test 05/22/17 11:07 05/22/17 16:52 05/22/17 20:18 05/23/17 06:15 Bedside Glucose 140 mg/dl (70-90) 218 mg/dl (70-90) 160 mg/dl (70-90) Anion Gap 6.0 mmol/L (3-11) Est Creatinine Clear Calc Drug Dose 26.3 ml/min Estimated GFR () 34.4 Estimated GFR (Non- 29.7 BUN/Creatinine Ratio 34.3 (10-20) Calcium Level 8.7 mg/dl (8.5-10.1) Phosphorus Level 2.5 mg/dl (2.5-4.9) Magnesium Level 1.7 mg/dl (1.8-2.4) Albumin 2.2 gm/dl (3.4-5.0) Test 05/23/17 07:44 Bedside Glucose 177 mg/dl (70-90) Allergies Coded Allergies: No Known Allergies (Verified , 05/14/17) Medications Current Inpatient Medications Medications (Trade) Dose Ordered Sig/Ministerio Route Start Time Stop Time Status Last Admin Dose Admin Acetaminophen (Tylenol Tab) 650 mg Q4H PRN PO 05/14/17 12:00 06/13/17 11:59 Al Hydrox/Mg Hydrox/Simethicone (Maalox Max Susp) 15 ml Q4H PRN PO 05/14/17 12:00 06/13/17 11:59 Magnesium Hydroxide (Milk Of Magnesia Susp) 30 ml Q12H PRN PO 05/14/17 12:00 06/13/17 11:59 Zolpidem Tartrate (Ambien Tab) 5 mg HSZ PRN PO 05/14/17 12:00 06/13/17 11:59 05/17/17 21:55 5 MG Polyethylene (Miralax Powder Packet) 17 gm DAILY PRN PO 05/14/17 12:00 06/13/17 11:59 Ketoconazole (Nizoral 2% Crm) 2 appln Q12 EXT 05/14/17 21:00 05/24/17 20:59 05/23/17 08:41 2 APPLN Bisacodyl (Dulcolax Supp) 10 mg DAILY PRN DC 05/14/17 12:15 06/13/17 12:14 Clopidogrel Bisulfate (plAVix TAB) 75 mg DAILY PO 05/15/17 09:00 06/14/17 08:59 05/23/17 08:40 75 MG Sodium Biphosphate/ Sodium Phosphate (Fleet Enema) 200 ml DAILY PRN DC 05/14/17 12:15 06/13/17 12:14 Cholecalciferol (Vitamin D Tab) 2,000 inter.unit QAM PO 05/15/17 09:00 06/14/17 08:59 05/23/17 08:40 2,000 INTER.UNIT Albuterol/ Ipratropium (Duoneb) 3 ml QIDR INH 05/15/17 12:00 06/14/17 11:59 05/22/17 18:51 3 ML Albuterol/ Ipratropium (Duoneb) 3 ml Q2R PRN INH 05/15/17 09:00 06/14/17 08:59 05/18/17 09:32 3 ML Heparin Sodium (Porcine) (Heparin Sq 5000 Unit/0.5ml) 5,000 unit Q12 SQ 05/15/17 21:00 06/14/17 20:59 05/23/17 08:50 5,000 UNIT Miscellaneous Information (Consult Glycemic Management Pharmacy) 1 ea UD PRN N/A 05/18/17 18:00 06/17/17 17:59 Insulin Aspart (novoLOG ASPART) SLIDING SCALE ACHS SC 05/18/17 21:00 06/17/17 20:59 05/22/17 18:00 3 UNITS Glucose (Glucose 40% Gel) 15-30 GRAMS 15 GRAMS... UD PRN PO 05/18/17 19:15 06/17/17 19:14 Glucose (Glucose Chew Tab) 4-8 Tablets 4 Tabl... UD PRN PO 05/18/17 19:15 06/17/17 19:14 Dextrose (Dextrose 50% 50ML Syringe) 25-50ML OF 50% DW IV FOR... UD PRN IV 05/18/17 19:15 06/17/17 19:14 Glucagon (Glucagon Inj) 1 mg UD PRN SQ 05/18/17 19:15 06/17/17 19:14 Ondansetron HCl (Zofran Inj) 4 mg Q6H PRN IV 05/19/17 07:30 06/18/17 07:29 05/21/17 08:18 4 MG Prednisone (PredniSONE TAB) 10 mg QAM PO 05/19/17 09:00 06/15/17 08:59 05/23/17 08:39 10 MG Metoprolol Tartrate (Lopressor Iv) 2.5 mg Q6 IV. 05/19/17 12:00 06/18/17 11:59 05/23/17 05:47 2.5 MG Insulin Glargine (Lantus Solostar Pen) SEE PROTOCOL TEXT 2100 SC 05/20/17 21:00 06/19/17 20:59 05/22/17 20:54 5 UNIT Lactobacillus Acidophilus (Floranex Tab) 1 tab TIDM PO 05/21/17 16:45 06/20/17 16:44 05/23/17 08:39 1 TAB Levofloxacin (Levaquin Tab) 750 mg Q2D@11 PO 05/22/17 13:00 05/29/17 10:59 05/22/17 13:29 750 MG Magnesium Oxide (Mag-Ox Tab) 400 mg BID PO 05/23/17 08:00 06/22/17 07:59 05/23/17 08:44 400 MG Impression (1) Acute renal insufficiency (2) Gram negative septicemia (3) Diastolic CHF, acute (4) UTI (urinary tract infection) (5) Hypertension (6) Type 2 diabetes mellitus without complications Mary is an 81-year-old female with acute on chronic renal insufficiency. Laboratory studies continue to show renal recovery. WILBERTO consistent with ATN in the setting of gram-negative sepsis and urinary tract infection. Renal US did not show obstruction. Patient is clinically responded to antibiotic therapy. She was transitioned to furosemide to assist with diuresis in the setting of volume overload. Telmisartan and HCTZ have been held. Recommendations -- discontinued D5W, consider starting on half-normal saline at 75 mL/hour if p.o. intake continues to be poor -- Document I/O's -- keep off of SHARRI-inhibitor/ARB -- continue to monitor renal function and electrolyte while in hospital however will sign off as renal function now but baseline and electrolyte abnormality resolved -- Follow up with Dr. Rachel in the nephrology clinic within 1-2 weeks of discharge -- please call with any question or concern.
[2017-05-23 11:13] VITALS: PULSE 74; O2SAT 94
--- NOTE | 2017-05-23 13:12 | Progress Note ---
Subjective Date of Service: May 23, 2017. Subjective Pt evaluation today including: conversation w/ patient, conversation w/ family , physical exam, chart review, lab review, review of studies, review of inpatient medication list Pt noncommunicative Daughter at bedside No distress noted Poor PO intake epr nursing Tolerating only small amts of thickened liquids Problem List Medical Problems: (1) Acute renal failure Status: Acute (2) Altered mental status Status: Acute (3) History of stroke Status: Chronic (4) Hypertension Status: Chronic (5) Pneumonia Status: Acute (6) UTI (urinary tract infection) Status: Acute Review of Systems Unable to obtain due to dementia Objective Vital Signs Date Time Temp Pulse Resp B/P (MAP) Pulse Ox O2 Delivery O2 Flow Rate FiO2 05/23/17 11:13 74 16 94 Nasal Cannula 2.0 05/23/17 08:20 Nasal Cannula 2.0 05/23/17 07:10 36.3 69 18 112/51 (71) 96 05/23/17 05:47 73 127/74 05/22/17 23:52 36.3 75 18 122/73 (89) 94 05/22/17 23:33 75 122/73 05/22/17 23:30 Nasal Cannula 2.0 05/22/17 20:30 Nasal Cannula 2.0 05/22/17 19:14 36.5 80 16 94/61 (72) 94 Nasal Cannula 2.0 05/22/17 18:51 79 16 93 Nasal Cannula 2.0 05/22/17 16:18 36.5 85 16 110/71 (84) 94 Nasal Cannula 2.0 05/22/17 15:19 74 16 96 Nasal Cannula 2.0 Physical Exam General Appearance: WD/WN, no apparent distress Eyes: normal inspection, PERRL, EOMI, sclerae normal Neck: supple, no adenopathy, thyroid normal, no JVD Respiratory/Chest: chest non-tender, lungs clear, normal breath sounds, no respiratory distress Cardiovascular: regular rate, rhythm, no edema, no gallop, no JVD Abdomen: normal bowel sounds, non tender, soft Neurologic/Psychiatric: no motor/sensory deficits, alert, + disoriented Skin: normal color, warm/dry Lymphatic: no adenopathy Laboratory Results Last 24 Hours Test 05/22/17 16:52 05/22/17 20:18 05/23/17 06:15 05/23/17 07:44 Bedside Glucose 218 mg/dl 160 mg/dl 177 mg/dl Sodium Level 138 mmol/L Potassium Level 3.2 mmol/L Chloride Level 99 mmol/L Carbon Dioxide Level 33 mmol/L Anion Gap 6.0 mmol/L Blood Urea Nitrogen 55 mg/dl Creatinine 1.60 mg/dl Est Creatinine Clear Calc Drug Dose 26.3 ml/min Estimated GFR () 34.4 Estimated GFR (Non- 29.7 BUN/Creatinine Ratio 34.3 Random Glucose 171 mg/dl Calcium Level 8.7 mg/dl Phosphorus Level 2.5 mg/dl Magnesium Level 1.7 mg/dl Albumin 2.2 gm/dl Test 05/23/17 11:06 Bedside Glucose 147 mg/dl Assessment and Plan 81 yo female with history of ischemic CVA with right sided weakness, admitted with fever, hypoxia, dyspnea Severe sepsis and bacteremia upon admission: Stable and improving Leukocytosis improving, likely contributing from steroids Proteus UTI on UA : Stable Pseudomonas bacteremia, possible from the urinary source, stable improving Left lower lobe infiltrate, with choking when eating, check speech to optimize diet, [place] Thick diet per recommendation Boost shakes added as well due to poor PO intake Was on broad spectrum antibiotics with Cefepime, Zithromax and Zyvox (chosen due to renal failure) ID following, per recs can continue cefepime while inpt (will need for treatment of proteus uti), Per recommend of infectious disease , when stable for d/c can change to po levaquin to complete course, stop 05/29. Possible HCAP: Stable, no cough, patient from SNF, with left lower lung infiltration, see above, continue tapering prednisone, Duonebs Acute hypoxic respiratory failure upon admission: Resolved, likely from pneumonia Possible acute kidney failure with unknown etiology with CKD stage III: almost to baseline, Cr 1.6 baseline Cr 1.5 Renal function continued to improve until today we found has hypernatremia possible ATN, Diuretics to be continued to be held Hypernatremia resolved with D5 fluids Will need to convert to NS Cont to follow BMP H/o ischemic CVA with residual left-sided weakness: stable, continue Plavix DVT prophylaxis: heparin q12 DNR Continued [facility] stay due to: home environment unsafe for pt Discharge planning: home
[2017-05-23 15:11] VITALS: BP 123/75; PULSE 79; TEMP 36.5; O2SAT 100
[2017-05-23 15:28] VITALS: PULSE 77; O2SAT 94
[2017-05-23] MEDS: BOOST GLUCOSE CONTROL PO SCH (17:16)
[2017-05-23 19:10] VITALS: PULSE 71; O2SAT 94
[2017-05-23] MEDS: INSULIN GLARGINE SOLOSTAR 100 UNITS/ML 3 ML PEN SC SCH (21:00)
[2017-05-23] MEDS: METOPROLOL SUCC 25MG EXT REL TAB PO SCH (21:20)
[2017-05-23 23:51] VITALS: BP 120/72; PULSE 82; TEMP 36.8; O2SAT 96
[2017-05-24 06:50] LABS: BUN/CREATININE RATIO 31.8 (10-20); CREATININE 1.4 mg/dl (0.60-1.20); PHOSPHORUS 2.2 mg/dl (2.5-4.9)
[2017-05-24] MEDS: ALBUT/IPRATROP 3MG/0.5MG NEB 3 ML VIAL INH SCH ×3 (07:06→15:15)
[2017-05-24 07:28] VITALS: BP 124/71; PULSE 75; TEMP 36.4; O2SAT 98
[2017-05-24 07:40] VITALS: PULSE 71; O2SAT 95
[2017-05-24] MEDS: INSULIN ASPART 100 UNITS/ML 3 ML PEN SC SCH ×3 (08:54→17:27)
[2017-05-24] MEDS: BOOST GLUCOSE CONTROL PO SCH ×3 (08:56→15:36)
[2017-05-24] MEDS: CLOPIDOGREL BISULFATE 75 MG TAB PO SCH (08:57)
[2017-05-24] MEDS: MAGNESIUM OXIDE 400 MG TAB PO SCH (08:57)
[2017-05-24] MEDS: LACTOBACILLUS ACIDOPHILUS (FLORANEX) TAB PO SCH ×3 (08:57→17:26)
[2017-05-24] MEDS: CHOLECALCIFEROL 1000 INTER.UNIT TAB PO SCH (08:57)
[2017-05-24] MEDS: KETOCONAZOLE 2% CR 15 GM TUBE EXT SCH (08:57)
[2017-05-24] MEDS: METOPROLOL SUCC 25MG EXT REL TAB PO SCH (08:57)
[2017-05-24] MEDS: HEPARIN SOD 5000 UNIT/0.5 ML CARP SQ SCH (08:59)
[2017-05-24] MEDS ORDERED: TPRSR25 PO (11:21)
[2017-05-24 11:28] VITALS: PULSE 77; O2SAT 94
--- NOTE | 2017-05-24 11:31 | Discharge Instructions ---
Discharge Instructions Date of Service May 24, 2017. Admission Reason for Admission: Pneumonia Discharge Discharge Diagnosis / Problem: Bacteremia Discharge Goals Goal(s): Decrease discomfort, Improve function, Increase independence, Improve disease control, Learn about illness, Diagnostic testing, Prevent Disease Progression Activity Recommendations Activity Limitations: resume your previous activity Lifting Limitations: none Exercise/Sports Limitations: none . Instructions / Follow-Up Instructions / Follow-Up Patient to be discharged back to [facility] Please note addition of antibiotic levaquin 750 mg once a day for 5 more days Will also start on metoprolol 25 mg twice a day Prescriptions sent to pharmacy Please continue to stop taking telmisartan Please follow up with Dr Rachel in 1-2 weeks Current Hospital Diet Patient's current hospital diet: AHA Diet (Heart Healthy), Diabetes Type 2 Diet Discharge Diet Recommended Diet: Diabetes Type 2 Diet Pending Studies Studies pending at discharge: no Laboratory Results Hemoglobin A1c Test 05/15/17 05:47 Range/Units Estimated Average Glucose 134 mg/dl Hemoglobin A1c 6.3 H 4.5-5.6 % Lipid Panel Test 05/14/17 15:45 Range/Units Triglycerides Level 85 0-150 mg/dl Cholesterol Level 116 0-200 mg/dl HDL Cholesterol 50 mg/dl Cholesterol/HDL Ratio 2.3 LDL Cholesterol, Calculated 49 mg/dl Medical Emergencies . Who to Call and When: Medical Emergencies: If at any time you feel your situation is an emergency, please call 911 immediately. . Non-Emergent Contact Non-Emergency issues call your: Primary Care Provider Call Non-Emergent contact if: you have a fever, your pain is worsening . . "Provider Documentation" section prepared by Nadeem Butler. . VTE Core Measure Inpt VTE Proph given/why not?: Unfractionated heparin SQ
[2017-05-24] MEDS ORDERED: LEVO750T23 PO (11:32)
[2017-05-24 11:41] VITALS: BP 124/71; PULSE 77; TEMP 36.4; O2SAT 94
[2017-05-24] MEDS: LEVOFLOXACIN 750 MG TAB PO SCH (12:25)
[2017-05-24 13:11] LABS: CALCIUM 8.8 mg/dl (8.5-10.1)
[2017-05-24 15:16] VITALS: PULSE 70; O2SAT 95
--- NOTE | 2017-05-24 16:10 | Discharge Summary ---
Discharge Summary Date of Service May 24, 2017. Discharge Summary Admission Date: May 14, 2017 at 12:27 Discharge Date: May 24, 2017 Discharge Disposition: residential facility Principal Diagnosis: Bacteremia Problems/Secondary Diagnoses: (1) History of stroke Status: Chronic (2) Hypertension Status: Chronic Immunizations: Have You Had Influenza Vaccine: Yes Influenza Vaccine Date: Sep 26, 2012 History of Tetanus Vaccine?: No History of Pneumococcal: Yes History of Hepatitis B Vaccine: No Medication Reconciliation New Medications: Levofloxacin (Levaquin) 750 Mg Tab 1 TAB PO DAILY for 5 Days, #5 TAB Metoprolol Succinate (Metoprolol Succinate ER) 25 Mg Tabcr 25 MG PO BID for 30 Days, #60 TABS Continued Medications: Acetaminophen (Tylenol) 325 Mg Tab 650 MG PO Q8 PRN for Pain, TAB Bisacodyl (Dulcolax) 10 Mg Sup 1 SUPP [place] DAILY PRN for NO BM FOR 3 DAYS, SUP Cholecalciferol (Vitamin D) 2,000 Unit Tab 2000 UNIT PO QAM Clopidogrel Bisulfate (Plavix) 75 Mg Tab 75 MG PO DAILY, TAB Furosemide (Lasix) 20 Mg Tab 20 MG PO QAM, TAB Loratadine (Claritin) 10 Mg Tab 10 MG PO QAM, TAB Magnesium Hydroxide (Milk of Magnesia) 30 Ml Susp 30 ML PO DAILY PRN for NO BM FOR 3 DAYS Prune Juice (Prune Juice ) Liqd 1 DOSE PO DAILY PRN for NO BM IN 2 DAYS Sodium Phosphate/Biphosphate (Fleet Enema) Ailyn 1 EA [place] DAILY PRN for NO BM FOR 4 DAYS, BTL Discontinued Medications: Telmisartan (Micardis) 40 Mg Tab 40 MG PO QAM, TAB Discharge Exam Review of Systems: Constitutional: No fever, No chills, No sweats, No weakness Eyes: No worsening of vision, No eye pain, No redness Respiratory: No cough, No sputum, No wheezing, No shortness of breath, No dyspnea on exertion Cardiovascular: No chest pain, No orthopnea, No PND, No edema, No claudication Abdomen: No pain, No nausea, No vomiting, No diarrhea Musculoskeletal: No joint pain, No muscle pain Genitourinary - Female: No dysuria, No urinary frequency, No urinary urgency , No urinary incontinence Neurologic: No memory loss, No paralysis, No weakness, No numbness/tingling Psychiatric: No depression symptoms, No anhedonism, No anxiety Integumentary: No rash, No itch Physical Exam: General Appearance: WD/WN, no apparent distress Eyes: normal inspection, PERRL, EOMI, sclerae normal ENT: normal ENT inspection, hearing grossly normal, TMs normal, pharynx normal Neck: supple, no adenopathy, thyroid normal, no JVD Respiratory/Chest: chest non-tender, lungs clear, normal breath sounds, no respiratory distress Cardiovascular: regular rate, rhythm, no edema, no gallop, no JVD Abdomen / GI: normal bowel sounds, non tender, soft, no organomegaly Neurologic/Psychiatric: alert, normal mood/affect, normal reflexes, oriented x 3 Hospital Course 81 yo female with history of ischemic CVA with right sided weakness, admitted with fever, hypoxia, dyspnea Severe sepsis and bacteremia upon admission: Resolved Leukocytosis likely contributing from steroids Proteus UTI on UA : Stable Pseudomonas bacteremia, possible from the urinary source, stable improving Left lower lobe infiltrate, with choking when eating,speech recs nectar Thick diet per recommendation Boost shakes added as well due to poor PO intake Was on broad spectrum antibiotics with Cefepime, Zithromax and Zyvox (chosen due to renal failure) ID following, per recs can continue cefepime while inpt (will need for treatment of proteus uti), Per recommend of infectious disease, when stable for d/c can change to po levaquin to complete course, stop /. Possible HCAP: Stable, no cough, patient from SNF, with left lower lung infiltration, see above, continue tapering prednisone, Duonebs Acute hypoxic respiratory failure upon admission: Resolved, likely from pneumonia Possible acute kidney failure with unknown etiology with CKD stage III: resolved baseline Cr 1.5 Renal function continued to improve until today we found has hypernatremia possible ATN, Diuretics to be continued to be held Hypernatremia resolved with D5 fluids Will need to convert to NS Cont to follow BMP H/o ischemic CVA with residual left-sided weakness: stable, continue Plavix DVT prophylaxis: heparin q12 DNR Total Time Spent: Greater than 30 minutes This includes examination of the patient, discharge planning, medication reconciliation, and communication with other providers. Discharge Instructions Please refer to the electronic Patient Visit Report (Discharge Instructions) for additional information.
[2017-08-29] MEDS ORDERED: IPRASOL4 INH (07:57)
[2017-08-29] MEDS ORDERED: METO25TA3 PO (07:59)
[2017-08-29] MEDS ORDERED: CHOL20005 PO (07:59)
[2017-08-31] MEDS ORDERED: CEPH500C2 PO (15:33)
[2017-08-31] MEDS ORDERED: HYDR-5688 PO (15:33)
[2017-09-16] MEDS ORDERED: SODIENE PR (10:37)
[2017-09-16] MEDS ORDERED: MOML PO (10:37)
[2017-09-16] MEDS ORDERED: BISA10SU3 PR (10:37)
== END 2017-05-24 21:26 | DRG 871 ==
LOC: EDBD 08:17 → C.EDA 08:18 → C.2T 12:27 → ENRESERV 12:51 → C.4E 05-21 17:52
PROVIDERS: ADMIT Internal Medicine; ATTEND Hospitalist
DX: A41.59 Other Gram-negative sepsis (principal); J18.9 Pneumonia, unspecified organism; N39.0 Urinary tract infection, site not specified; N17.9 Acute kidney failure, unspecified; I69.951 Hemiplegia and hemiparesis following unspecified cerebrovascular disease affecting right dominant side; J96.01 Acute respiratory failure with hypoxia; I50.33 Acute on chronic diastolic (congestive) heart failure; I13.0 Hypertensive heart and chronic kidney disease with heart failure and stage 1 through stage 4 chronic kidney disease, or unspecified chronic kidney disease; E87.0 Hyperosmolality and hypernatremia; L03.115 Cellulitis of right lower limb; G93.40 Encephalopathy, unspecified; E11.9 Type 2 diabetes mellitus without complications; Z85.3 Personal history of malignant neoplasm of breast; N18.3 Chronic kidney disease, stage 3 (moderate); E78.5 Hyperlipidemia, unspecified; E55.9 Vitamin D deficiency, unspecified; F41.9 Anxiety disorder, unspecified; B35.3 Tinea pedis; I65.29 Occlusion and stenosis of unspecified carotid artery; R65.20 Severe sepsis without septic shock

== ENCOUNTER → 2017-07-18 | Outpatient (CLI) | payer OTHER ==
[~2017-07-18] MED LIST changes: +ACET-1311 PO; -AZITTAB PO; -BENZ100C18 PO; +BISA10SU38 PR; +CEPH500C2 PO; +CHOL20005 PO; +CHOL20009 PO; +CLR10 PO; +FURO-85 PO; +HYDR-5688 PO; +IPRASOL4 INH; -MCR/40125 PO; +METO25TA3 PO; +MOMLX PO; -PRED10TA PO; +PRNJ PO; +SODIENE PR; +TPRSR25 PO
--- NOTE | 2017-07-18 15:25 | MAMMOGRAPHY REPORT ---
UNILATERAL RIGHT DIGITAL DIAGNOSTIC MAMMOGRAM TOMOSYNTHESIS WITH CAD AND TARGETED RIGHT ULTRASOUND: CLINICAL HISTORY: 81 year-old woman with a new palpable lump in the right breast. Personal history o f remote left breast cancer status post mastectomy. TECHNIQUE: Right breast tomosynthesis in addition to standard 2D mammography was performed. Current harshad edwards was also evaluated with a Computer Aided Detection (CAD) system. COMPARISON: Comparison is made to exams dated: 02/03/2011 mammogram, 02/03/2011 ultrasound, 01/19/2010 ma mmogram - [facility], 11/29/2008, 11/29/2008, and 11/20/2007. BREAST COMPOSITION: There are scattered areas of fibroglandular density in the right breast. FINDINGS: The exam is suboptimal due to inability of the patient to adequately position for the exam , as she is wheelchair-bound, despite assistance from a second electroencephalographic technologist. Within the limitations of the exam, there is an incompletely visualized irregular and spiculated mass with associated internal amorphous microcalcification, measuring approximately 3 cm. There is regio nal asymmetry throughout the lateral right breast, and mild diffuse right breast skin thickening, whi ch is newly appreciated comparing to the prior 2011 mammograms. No other obvious new mass or focal a angie of architectural distortion is seen. No other suspicious microcalcifications. Targeted ultrasound was performed in the 7:00 right breast in the area of palpable lump. The ultraso und is technically limited due to inability of the patient to position with arm above head. There is a macrolobulated hypoechoic solid vascular mass with internal calcifications, measuring 2.9 x 2.8 x 3.6 cm. This is suspicious for malignancy and definitive characterization with ultrasound guided cor e biopsy is recommended. There is mild overlying skin thickening measuring up to 3 mm. Additional u ltrasound was performed in the right axilla. Again, evaluation of the axilla is technically limited but there is a possible hypoechoic mass measuring 9.5 x 12.5 x 8.1 mm which could represent a morphol ogically abnormal lymph node. This is also indeterminate, and ultrasound-guided fine-needle aspirati on versus core biopsy is recommended. IMPRESSION: ACR BI-RADS CATEGORY 5: HIGHLY SUGGESTIVE OF MALIGNANCY, TARGETED ULTRASOUND ACR BI-RADS CATEGORY 5: HIGHLY SUGGESTIVE OF MALIGNANCY 1. The palpable mass in the 7:00 right breast correlates with a suspicious irregular 3.6 cm mass wit h associated microcalcification. 2. There is regional asymmetry in the lateral right breast and mild diffuse skin thickening of the r ight breast. These subtle findings can indicate larger extent of disease possibly DCIS and dermal in volvement. Pending pathology results, may consider an additional skin punch biopsy of the right fam st. 3. There is an indeterminate hypoechoic 12 mm mass in the right axilla which could represent a morph ologically abnormal lymph node. Evaluation of this lesion is difficult given inability of the patien t to adequately position. Nevertheless, further characterization with attempted ultrasound-guided co re biopsy versus fine-needle aspiration biopsy is recommended. These results and recommendations were discussed with the patient and her daughter at the time of the exam. She should return to the department ideally in a gurney with lifting help and schedule for 1 hour 15 minutes. Approximately 10% of breast cancers are not detected with mammography. A negative mammographic report should not delay biopsy if a clinically suggestive mass is present. Malika Reddy M.D. ay/:07/18/2017 14:35:41 Tool Operator: Shayna MCGRATH)(Kellee), [facility] letter sent: Abnormal 4/5 BI-RADS Code: ACR BI-RADS Category 5: Highly Suggestive Of Malignancy Ultrasound BI-RADS: ACR BI-RAD S Category 5: Highly Suggestive Of Malignancy
--- NOTE | 2017-07-26 06:56 | CODING QUERY NO DIAGNOSIS ---
TREATMENT RENDERED WITHOUT A DIAGNOSIS To promote full compliance with coding requirements relating to patient care, physician participation is requested in all cases of certified medical records coder uncertainty. Please assist us with providing a diagnosis/symptom for the test(s) below: A diagnosis/symptom was not documented on your Order. A valid diagnosis/symptom is required to bill all insurances. Please remember that we are unable to code a diagnosis of rule out, probable, possible, questionable, or suspected. Note - There is no order in our system. Tests that require a diagnosis: * Mammogram - Diagnostic DIAGNOSIS: Provider Signature: Date: [facility] Once completed, please kindly fax back to [phone] For questions please call [phone]
== END ==
LOC: C.MAMM 13:30
PROVIDERS: ATTEND Nurse Practitioner Adult Health
DX: N63 Unspecified lump in breast (principal); Z85.3 Personal history of malignant neoplasm of breast; Z90.12 Acquired absence of left breast and nipple; R92.0 Mammographic microcalcification found on diagnostic imaging of breast; N64.89 Other specified disorders of breast

== ENCOUNTER → 2017-08-03 | Outpatient (CLI) | payer OTHER ==
--- NOTE | 2017-08-03 08:47 | Discharge Instructions ---
Discharge Instructions Procedure Procedure Date: Aug 03, 2017. Reason for visit: Right Mass/Right Axillary Mass. Discharge Discharge Date: Aug 03, 2017. Discharge Diagnosis: status post breast biopsy Instructions Activity Recommendations: Additional Limitations (see below) Return to School/Work: no limitations Recommended Home Diet: No Limitations Provider Instructions: ACTIVITY RECOMMENDATIONS: * No lifting, pushing, pulling or exercising the affected side for three days. RETURN TO SCHOOL/WORK: * You may return to work/school after the procedure, but do not perform any strenuous activities for 24 to 48 hours. MEDICATIONS: * Tylenol (two 325 mg) every four to six hours if needed for mild pain (if not allergic to Tylenol). DIET: * Resume previous diet. SPECIAL CARE INSTRUCTIONS: * Keep biopsy site dry for 24 hours. May shower after 24 hours, but do not soak (bathe) incision. * May remove Tegaderm (plastic patch) tomorrow AFTER showering. * Leave the steri-strips on for one week. Allow the steri-strips to fall off by themselves. If not off after one week, you may remove them. You may place a Bandaid crosswise over the strips, if desired. * Apply ice 10 minutes on and 10 minutes off as needed. * Wear a bra at bedtime to sleep more comfortably for 2-3 days. * Your referring physician should have the results after approximately 5 to 7 business days. * Call for unusual bleeding, fever, drainage, etc or if you have any questions call during normal business hours or after hours call Dr Bonilla, [phone]. FOLLOW UP VISIT: Follow-up with Referring Physician as scheduled. Allergies Coded Allergies: No Known Allergies (Verified , 05/14/17) Rebekah Scott Recommendations: Call your doctor if: * Temperature above 101 degrees * Pain not relieved by pain medicine ordered * There is increased drainage or redness from any incision * You have any unanswered questions or concerns. Your Doctors Instructions noted above were prepared by provider Yvette Bonilla. Patient Signature Section: Patient Instructions Signature Page Mary Ashley Patient (or Guardian) Signature/Date: I have read and understand the instructions given to me by my caregivers. Caregiver/RN/Doctor Signature/Date: The above-named patient and/or guardian has received patient instructions on this date. + Original Patient Signature Page (only) stays with chart. Please make copy for patient.
--- NOTE | 2017-08-03 13:48 | MAMMOGRAPHY REPORT ---
ULTRASOUND GUIDED BIOPSY RIGHT BREAST: 08/03/2017 CLINICAL HISTORY: Right 7:00 breast mass. PATIENT CONSENT: The procedure, risks and benefits were discussed with the patient and informed writt en consent was obtained. A timeout was performed immediately prior to the procedure. PROCEDURE DESCRIPTION: With ultrasound guidance, aseptic technique, and lidocaine as the local anesth etic (1% lidocaine to anesthetize the skin and 1% lidocaine with epinephrine to anesthetize the deepe r tissues), the mass of concern in the right 7:00 breast was sampled 4 times with a 14-gauge Achieve biopsy needle. Immediately thereafter, with ultrasound guidance, aseptic technique, and lidocaine a s the local anesthetic, a metallic localizer clip was placed centrally in the mass. Direct pressure was applied to the site immediately post procedure and hemostasis was achieved. Postprocedure mammog omega were not performed as the patient is on a litter. The patient tolerated the procedure without co mplication. She was given wound care instructions. The specimens were sent to pathology for analysis . COMPARISON: Comparison is made to exams dated: 07/18/2017 ultrasound, 07/18/2017 mammogram, 02/03/2011 m ammogram, 02/03/2011 ultrasound, 01/22/2010 mammogram, and 01/19/2010 mammogram - [facility]. IMPRESSION: ULTRASOUND GUIDED BIOPSY Ultrasound guided biopsy of the right 7:00 breast mass, with clip placement. The patient will receiv e pathology results from her referring provider. Yvette Bonilla M.D. /:08/03/2017 08:59:39 Director Electronics: Greta Castellano, [facility]
--- NOTE | 2017-08-03 13:48 | MAMMOGRAPHY REPORT ---
FINE NEEDLE ASPIRATION RIGHT BREAST: 08/03/2017 CLINICAL HISTORY: Abnormal right axillary lymph node. COMPARISON: Comparison is made to exams dated: 07/18/2017 ultrasound, 08/03/2017 ultrasound biopsy, 06/29 mammogram, and 02/03/2011 mammogram - [facility]. PATIENT CONSENT: The procedure, risks and benefits were discussed with the patient and her daughter ( power of pattern keeper ) and informed written consent was obtained. A timeout was performed immediately pr ior to the procedure. PROCEDURE DESCRIPTION: The ultrasound is limited as the patient could not adequately lift her arm abo ve her head for the exam. Preprocedural ultrasound demonstrates 1 morphologically normal lymph node which retains a fatty hilum. Another morphologically abnormal lymph node is also seen, which does no t clearly have a fatty hilum, measuring approximately 1.3 x 0.9 cm. The decision was made to attempt fine-needle aspiration of the abnormal lymph node. With ultrasound guidance, aseptic technique, and lidocaine as the local anesthetic (1% lidocaine to anesthetize the skin and 1% lidocaine with epineph rine to anesthetize the deeper tissues), fine-needle aspiration was performed of the abnormal right a xillary lymph node using 18-gauge needles and syringes. Three passes were made; the samples were edwar opal in CytoLyt and sent to cytology for analysis. A metallic localizer clip was placed into the lymp h node. After this, the decision was made to attempt a core biopsy of the lymph node. Using an 18-g auge Quick-Core biopsy needle, one core biopsy specimen was obtained and sent in formalin to patholog y for analysis. Direct pressure was applied to the site immediately post procedure and hemostasis was achieved. The patient tolerated the procedure without complication. She was given wound care instructions. IMPRESSION: FINE NEEDLE ASPIRATION Ultrasound-guided fine-needle aspiration and core needle biopsy of an abnormal right axillary lymph n ode, with clip placement. The patient will receive pathology results from her referring provider. Yvette Bonilla M.D. /:08/03/2017 09:04:55 Set Key Driver: Greta Castellano, [facility]
== END ==
LOC: C.MAMM 07:46
PROVIDERS: ATTEND Radiology Diagnostic Radiology
DX: N63 Unspecified lump in breast (principal); N64.89 Other specified disorders of breast; D05.91 Unspecified type of carcinoma in situ of right breast

== ENCOUNTER 2017-08-31 05:02 | Inpatient (IN) | payer OTHER ==
[~2017-08-31] VITALS: Ht 157.5 cm; Wt 76.3 kg
[2017-08-31] VITALS (11 sets, daily range): BP systolic 102–147; BP diastolic 50–80; PULSE 55–90; TEMP 36.2–36.5; O2SAT 93–100; Ht 157.5 cm; Wt 76.3 kg
[~2017-08-31 05:02] MED LIST changes: -BISA10SU38 PR; -CEPH500C2 PO; -CHOL20009 PO; -HYDR-5688 PO; -MOMLX PO; -PRNJ PO; -SODIENE PR; -TPRSR25 PO
[2017-08-31] MEDS ORDERED: CEFAZOLIN 2000 MG/60 ML D5W IV SCH (06:00)
[2017-08-31] MEDS ORDERED: SODIUM CHLORIDE 0.9% 1000ML 1,000 ML IV SCH (06:00)
[2017-08-31] MEDS ORDERED: LIDOCAINE HCL 2% 2 ML VIAL (20MG/ML) ONE (06:42)
[2017-08-31] MEDS ORDERED: PROPOFOL IV EMULSION 10 MG/ML 20 ML VIAL IV ONE (06:42)
[2017-08-31] MEDS ORDERED: FENTANYL CITRATE INJ 50 MCG/1 ML 2 ML VIAL ONE ×2 (06:43→08:02)
[2017-08-31] MEDS ORDERED: ONDANSETRON INJ 2 MG/ML 2 ML VIAL ONE (06:44)
[2017-08-31] MEDS ORDERED: BUPIVACAINE 0.5 % 5 MG/1 ML MPF 30ML VIAL ONE (06:46)
--- NOTE | 2017-08-31 06:46 | History & Physical Bridge Note ---
H&P Re-Evaluation Bridge Note: I have examined the patient, reviewed the History & Physical and in the interval since the performance of the History & Physical I have noted the following changes of clinical significance: No changes noted
[2017-08-31] MEDS ORDERED: CEFAZOLIN SOD 1 GM VIAL ONE (07:14)
[2017-08-31] MEDS ORDERED: LACTATED RINGER'S 1000ML 1,000 ML IV SCH (08:41)
--- NOTE | 2017-08-31 08:41 | [facility] Operative Report ---
Operative Report Operative Date Aug 31, 2017. Pre-Operative Diagnosis Right Breast Cancer, axillary LN mets Post-Operative Diagnosis ,Right Breast Cancer, axillary LN mets Procedure(s) Performed Right Breast Mastectomy with Right Axillary Lymph Node Dissection Surgeon Dr. Perez Soft Drink Powder Mixer Surgeon(s) Larry Bello PA-C Estimated Blood Loss 30 cc Findings large tumor, puckering of skin and lymphedema, lymphadenopathy Specimens A: Right Breast B: Right Axillary Tissue Drains 2- # [address] Rd MORENA drains Anesthesia gen Complication(s) None Disposition Recovery Room / PACU I attest to the content of the Intraoperative Record and any orders documented therein. Any exceptions are noted below.
[2017-08-31] MEDS ORDERED: LABETALOL HCL IV 5 MG/ML 20ML IV PRN (09:00)
[2017-08-31] MEDS ORDERED: HYDROCODONE/ACETAMOPHEN 5/325MG TAB PO PRN ×2 (09:00)
[2017-08-31] MEDS ORDERED: EpHEDrine SULFATE INJ 50 MG/ML AMP IV PRN (09:00)
[2017-08-31] MEDS ORDERED: ATROPINE SULFATE 0.1 MG/ML 5ML SYR IV PRN (09:00)
[2017-08-31] MEDS ORDERED: ACETAMINOPHEN 325 MG TAB PO PRN (09:00)
[2017-08-31] MEDS ORDERED: MoRPHine SULFATE 2 MG/ML CARP IV PRN (09:00)
[2017-08-31] MEDS ORDERED: MoRPHine SULFATE 4 MG/ML 1 ML CARP\\VIAL IV PRN (09:00)
[2017-08-31] MEDS ORDERED: ONDANSETRON INJ 2 MG/ML 2 ML VIAL IV PRN ×2 (09:00)
[2017-08-31] MEDS ORDERED: FENTANYL CITRATE INJ 50 MCG/1 ML 2 ML VIAL IV PRN (09:00)
[2017-08-31] MEDS ORDERED: LABETALOL HCL IV 5 MG/ML 20ML IV ONE (09:04)
--- NOTE | 2017-08-31 09:06 | OPERATIVE REPORT ---
DATE OF OPERATION: 08/31/2017 PREOPERATIVE DIAGNOSIS: Right breast cancer with axillary lymph node metastasis. POSTOPERATIVE DIAGNOSIS: Same. NAME OF OPERATION: Right mastectomy with right axillary dissection. STAFF SURGEON: Dr. Perez. ASSISTANTS: Larry Bello PA-C. ANESTHESIA: General. OPERATION AND FINDINGS: PROCEDURE: The patient was brought in the operating room and placed on the operating table in supine position. Her right arm did have some flexion contracture from prior disuse and history of stroke. It was positioned appropriately on the arm board in a flexed position using pillows and blankets and then taped in position. Her right breast and axilla were prepped and draped in usual fashion. On inspection, she did have a large tumor near the inferior breast crease at approximately 7:00, which was showing skin puckering. She also had some lymphedema in the breast from suspected lymph node involvement. She did have a prior needle biopsy of her right axillary lymph node which was positive. Initially, the breast was marked for incision with the inferior incision actually below the inferior breast crease because of the position of the tumor and then the other incision was just above the nipple areolar complex in an elliptical fashion into the right axilla into the sternum. The superior skin flap was constructed first by dissecting the subcutaneous tissue away from the breast tissue down to the pectoralis major muscle. The inferior incision then made and dissection was carried down to the fascia below the rib cage and then the breast tissue was taken away from the pectoralis major muscle, removing the fascia laterally and then the tissue marked with a long silk suture lateral, short silk suture medial. It did appear that we were well around the tumor. At this point, we approached the right axilla which did show some lymphedema and scar tissue. She had a previous needle biopsy. Dissection was carried down through the fascia, identifying the right axillary vein and then the tissue inferior to the vein was taken superior to the thoracodorsal complex. She did seem to have a significant amount of lymphadenopathy. This tissue was sent for permanent section. After appropriate irrigation with antibiotic solution 2 drains were placed, both were #15 round Jose-Ortiz drains, 1 into the right axilla, 1 into the chest area. The lateral drain went to the chest wall. The medial drain went to the axilla. These were secured using 3-0 nylon suture. Subcutaneous tissue was then reapproximated using 3-0 Vicryl suture. The medial portion of the incision closed using subcuticular 4-0 Monocryl. The axillary and lateral portion of the incision closed using interrupted 4-0 nylon suture. Steri-Strips were applied medially, dressing applied, Dax wrap applied and patient transferred to recovery room in stable condition. It did not appear that the tumor invaded into the muscle. The only concern was the patient's lymphadenopathy in the right axilla. I attest to the content of the Intraoperative Record and any orders documented therein. Any exception s are noted below.
--- NOTE | 2017-08-31 10:08 | Anesthesiology Progress Note ---
Anesthesia Post Op Note Date & Time Aug 31, 2017 at 10:07 Vital Signs Pain Intensity: 0 Vital Signs Past 12 Hours Date Time Temp Pulse Resp B/P (MAP) Pulse Ox O2 Delivery O2 Flow Rate FiO2 08/31/17 10:00 66 21 168/48 94 Nasal Cannula 4 08/31/17 09:45 67 20 161/74 94 Nasal Cannula 4 08/31/17 09:35 36.2 66 23 163/60 93 Nasal Cannula 4 08/31/17 09:25 62 18 162/80 93 Nasal Cannula 4 08/31/17 09:15 68 20 174/68 93 Nasal Cannula 4 08/31/17 09:05 67 21 186/63 96 Oxymask 10 08/31/17 08:55 73 23 188/81 96 Oxymask 10 08/31/17 08:47 36.1 70 18 190/69 97 Oxymask 10 08/31/17 05:48 36.5 90 18 147/66 96 Nasal Cannula 2 Notes Mental Status: alert / awake / arousable, participated in evaluation Pt Amnestic to Procedure: Yes Nausea / Vomiting: adequately controlled Pain: adequately controlled Airway Patency, RR, SpO2: stable & adequate BP & HR: stable & adequate Hydration State: stable & adequate Anesthetic Complications: no major complications apparent
[2017-08-31] MEDS: LORATADINE 10 MG TAB PO SCH (11:19)
[2017-08-31] MEDS: FUROSEMIDE 20 MG TAB PO SCH (11:20)
[2017-08-31] MEDS: DOCUSATE SODIUM/SENNA 50/8.6MG TAB PO SCH ×2 (12:08→20:36)
[2017-08-31] MEDS: CEFAZOLIN IV 1,000 MG in DEXTROSE 5% 50ML 50 ML IV SCH ×2 (13:44→19:26)
[2017-08-31] MEDS ORDERED: GLUCOSE 10 TABS/TUBE PO PRN (14:15)
[2017-08-31] MEDS ORDERED: DEXTROSE 50% 50 ML SYR IV PRN (14:15)
[2017-08-31] MEDS ORDERED: GLUCOSE 40% GEL 15 GM TUBE PO PRN (14:15)
[2017-08-31] MEDS ORDERED: GLUCAGON FOR INJ 1 MG VIAL SQ PRN (14:15)
--- NOTE | 2017-08-31 14:26 | Medical Consult ---
Consultation Date of Consultation: Aug 31, 2017. Attending Physician: Gulshan Perez M.D. Reason for Consultation: Medical management History of Present Illness This is an 81 y/o female with a history of CVA w/residual right hemiplegia, HTN , HLD, diastolic CHF, breast cancer, CKD stage III, and prediabetes who presents s/p right mastectomy with right axillary lymph node dissection with Dr. Perez on 08/31 for medical management. The patient reports feeling well and denies any pain currently. She states she ate without any difficulty, although the patient is confused and not a very reliable historian. She denies urinating , passing gas or having a bowel movement yet postoperatively. The patient denies fevers, chills, sweats, chest pain, palpitations, claudication, cough, wheezing, shortness of breath, nausea, vomiting, abdominal pain, dysuria, hematuria, urinary retention, paralysis, weakness, numbness and tingling. Past Medical/Surgical History Medical Problems: (1) Acute renal failure Status: Resolved (2) Altered mental status Status: Resolved (3) Pneumonia Status: Resolved (4) UTI (urinary tract infection) Status: Resolved H/o CVA w/right hemiplegia HTN HLD Diastolic CHF Breast cancer CKD stage III Prediabetes Family History Breast cancer Heart disease Stroke Social History Smoking Status: Former Smoker Smokeless Tobacco Use: No Alcohol Use: none Drug Use: none Marital Status: Housing Status: senior living ([facility]) Occupation Status: retired Allergies Coded Allergies: No Known Allergies (Verified , 08/31/17) Current Inpatient Medications Current Inpatient Medications Medications (Trade) Dose Ordered Sig/Ministerio Route Start Time Stop Time Status Last Admin Dose Admin Sodium Chloride 1,000 ml @ 15 mls/hr Q24H IV 08/31/17 06:00 09/01/17 05:59 08/31/17 06:18 15 MLS/HR Cefazolin Sodium 60 ml @ 100 mls/hr PREOP IV 08/31/17 06:00 08/31/17 18:00 08/31/17 06:54 100 MLS/HR Furosemide (Lasix Tab) 20 mg QAM PO 08/31/17 09:00 09/30/17 08:59 Loratadine (Claritin Tab) 10 mg QAM PO 08/31/17 09:00 09/30/17 08:59 Metoprolol Succinate (Toprol Xl Tab) 25 mg BID PO 08/31/17 21:00 09/30/17 20:59 Cefazolin Sodium 1000 mg/Dextrose 55 ml @ 100 mls/hr Q6H IV 08/31/17 14:00 09/10/17 13:59 08/31/17 13:44 100 MLS/HR Acetaminophen/ Hydrocodone Bitart (Colebrook 5/325 Tab) 1 tab Q4 PRN PO 08/31/17 09:00 09/14/17 08:59 Acetaminophen/ Hydrocodone Bitart (Colebrook 5/325 Tab) 2 tab Q4 PRN PO 08/31/17 09:00 09/14/17 08:59 Morphine Sulfate (MoRPHine SULFATE INJ) 2 mg Q4H PRN IV 08/31/17 09:00 09/14/17 08:59 Morphine Sulfate (MoRPHine SULFATE INJ) 4 mg Q4H PRN IV 08/31/17 09:00 09/14/17 08:59 Ondansetron HCl (Zofran Inj) 4 mg Q6H PRN IV 08/31/17 09:00 09/30/17 08:59 Senna/Docusate Sodium (Senokot S Tab) 1 tab BID PO 08/31/17 11:00 09/30/17 10:59 08/31/17 12:08 1 TAB Clopidogrel Bisulfate (plAVix TAB) 75 mg QAM PO 09/02/17 09:00 10/02/17 08:59 Heparin Sodium (Porcine) (Heparin Sq 5000 Unit/0.5ml) 5,000 unit Q12H SQ 09/01/17 09:00 10/01/17 08:59 Acetaminophen (Tylenol Tab) 650 mg Q4H PRN PO 08/31/17 09:00 09/30/17 08:59 Review of Systems See HPI for pertinent positives and negatives. All other systems reviewed and negative. Physical Exam Date Time Temp Pulse Resp B/P (MAP) Pulse Ox O2 Delivery O2 Flow Rate FiO2 08/31/17 13:22 79 18 120/71 (87) 98 08/31/17 12:25 55 18 145/80 (101) 93 08/31/17 11:25 36.2 57 16 102/52 (69) 96 Nasal Cannula 4.0 08/31/17 10:55 84 18 146/79 (101) 95 08/31/17 10:25 36.3 69 16 139/75 (96) 95 Nasal Cannula 4.0 08/31/17 10:25 95 Nasal Cannula 4.0 08/31/17 10:25 95 Nasal Cannula 4.0 08/31/17 10:00 66 21 168/48 94 Nasal Cannula 4 08/31/17 09:45 67 20 161/74 94 Nasal Cannula 4 08/31/17 09:35 36.2 66 23 163/60 93 Nasal Cannula 4 08/31/17 09:25 62 18 162/80 93 Nasal Cannula 4 08/31/17 09:15 68 20 174/68 93 Nasal Cannula 4 08/31/17 09:05 67 21 186/63 96 Oxymask 10 08/31/17 08:55 73 23 188/81 96 Oxymask 10 08/31/17 08:47 36.1 70 18 190/69 97 Oxymask 10 08/31/17 05:48 36.5 90 18 147/66 96 Nasal Cannula 2 General appearance: +Obese. Well-developed, well-nourished, no apparent distress Head: Normocephalic, atraumatic Eyes: Normal inspection, PERRL, EOMI ENT: Normal ENT inspection, hearing grossly normal, pharynx normal Neck: Supple, no JVD, trachea midline Respiratory/Chest: +Chest wrapped in famliia bandage. [address] Lungs clear to auscultation, normal breath sounds, no respiratory distress Cardiovascular: Regular rate & rhythm, no gallop, no murmur Abdomen/GI: Normal bowel sounds, non-tender, soft Extremities/Musculoskeletal: Normal inspection, no calf tenderness, no pedal edema Neurological/Psych: +Confused. Pt says she lives with daughter but is a resident at [facility]. Disoriented to time. Alert, normal mood/affect, oriented x 2 Skin: Normal color, warm/dry, no rash Laboratory Results Last 24 Hours Test 08/31/17 05:34 08/31/17 08:55 08/31/17 11:57 Bedside Glucose 123 mg/dl 158 mg/dl 168 mg/dl Assessment & Plan 81 y/o female with a history of CVA w/residual right hemiplegia, HTN, HLD, diastolic CHF, breast cancer, CKD stage III, and prediabetes who presents s/p right mastectomy with right axillary lymph node dissection with Dr. Perez on 08/31 for medical management. S/p right mastectomy and right axillary lymph node dissection, breast cancer-- POD #0 -Pain management, DVT prophylaxis, and PT/OT as per primary team -AVSS, denies pain HTN, h/o CVA--stable -Continue Toprol XL 25 mg PO BID -Plavix held by primary team Diastolic CHF--stable, no acute exacerbation -Hold Lasix for now -Continue metoprolol as above CKD stage III--baseline creatinine 1.3-1.5 -PRP pending Prediabetes--last HgbA1c checked on 05/15/17 was 6.3 -Insulin sliding scale -Check BSGs qac and qhs -Recheck HgbA1c Thank you for this consultation. We will continue to follow. Resident Physician Supervision Note: Pt seen/evaluated independently . I discussed the case with the PA and agree with the findings and plan as documented in the note. Any exceptions or clarifications are listed here: 81 y/o F Hx CVA - R hemiplegia, HTN, HPL, diastolic CHF, breast cancer, CKD stage III, post R mastectomy and LN dissection Pt has chronic expressive aphasia - not able to obtain any reliable info directly but appears comfortable - daughter is at bedside to confirm above OE Cannot check full orientation - obeys commands S1,2 R CTAB NT, ND No CCE P: Cont B hernán for HTN Monitor volume - currently Lasix is held and pt is clinically euvolemic Considering CVA history - should resume Plavix at earliest time Presumably she is statin-intolerant as she would normally be on a statin following a major CVA F/U with oncology in outpt setting upon DC Med will follow daily Above discussed with daughter at bedside Documented By: Noe Bueno
[2017-08-31] MEDS ORDERED: HYDR-5688 PO (15:33)
[2017-08-31] MEDS ORDERED: CEPH500C2 PO (15:33)
--- NOTE | 2017-08-31 15:36 | Discharge Instructions ---
Discharge Instructions Date of Service Aug 31, 2017. Admission Reason for Admission: Right Breast Cancer, Diabetes Discharge Discharge Diagnosis / Problem: Rt breast cancer Discharge Goals Goal(s): Decrease discomfort, Improve function, Improve disease control Activity Recommendations Activity Limitations: as noted below Lifting Limitations: no more than 10 pounds Exercise/Sports Limitations: until after follow-up appointment May Resume Sexual Activity: after follow-up appointment Shower/Bathe: keep incision dry (may gently wash over incision 2 days after surgery) SPECIAL CARE INSTRUCTIONS: * Cover incisions and change daily for comfort/drainage. * Empty drain 2-3 times per day and record. * Expect some swelling and bruising. Call your doctor if: * Temperature above 101 degrees * Pain not relieved by pain medicine ordered * There is increased drainage or redness from any incision * You have any unanswered questions or concerns [phone]. FOLLOW UP VISIT: If not already scheduled, please call the office for a follow-up visit. for next week- wound/ drain check OFFICE PHONE NUMBER: Dr. Perez Office . Current Hospital Diet Patient's current hospital diet: Diabetes Type 2 Diet Discharge Diet Recommended Diet: Regular Diet Procedures Procedures Performed: Right Breast Mastectomy with Right Axillary Lymph Node Dissection Pending Studies Studies pending at discharge: no Laboratory Results Hemoglobin A1c Test 08/31/17 14:44 Range/Units Medical Emergencies . Who to Call and When: Medical Emergencies: If at any time you feel your situation is an emergency, please call 911 immediately. . Non-Emergent Contact Non-Emergency issues call your: Primary Care Provider, Surgeon . "Provider Documentation" section prepared by Gulshan Perez. . VTE Core Measure Inpt VTE Proph given/why not?: Unfractionated heparin SQ, SCD's
[2017-08-31 15:38] LABS: BUN/CREATININE RATIO 16.2 (10-20); CALCIUM 8.4 mg/dl (8.5-10.1); CREATININE 1.7 mg/dl (0.60-1.20); POTASSIUM 4.8 mmol/L (3.5-5.1)
[2017-08-31 16:05] LABS: HEMATOCRIT 31.6 % (37-47); MEAN CELL VOLUME 91.9 fL (80-100); MEAN CORPUSCULAR HEMOGLOBIN 29.4 pg (25-34); MEAN PLATELET VOLUME 10.4 fL (7.4-10.4); PLATELET COUNT 210 K/uL (130-400); RED BLOOD COUNT 3.44 M/uL (4.2-5.4); WHITE BLOOD COUNT 9.85 K/uL (4.8-10.8)
[2017-08-31] MEDS: INSULIN ASPART 100 UNITS/ML 3 ML PEN SC SCH ×2 (17:15→20:37)
[2017-08-31] MEDS: ALBUT/IPRATROP 3MG/0.5MG NEB 3 ML VIAL INH SCH (19:14)
[2017-08-31] MEDS: METOPROLOL SUCC 25MG EXT REL TAB PO SCH (20:36)
[2017-09-01] VITALS (10 sets, daily range): BP systolic 110–138; BP diastolic 53–74; PULSE 67–83; TEMP 36.3–36.9; O2SAT 92–97
[2017-09-01] MEDS: CEFAZOLIN IV 1,000 MG in DEXTROSE 5% 50ML 50 ML IV SCH ×4 (01:53→19:48)
[2017-09-01 05:42] LABS: HEMATOCRIT 29.1 % (37-47); MEAN CELL VOLUME 94.2 fL (80-100); MEAN CORPUSCULAR HEMOGLOBIN 29.1 pg (25-34); MEAN CORPUSCULAR HGB CONC 30.9 g/dl (32-36); PLATELET COUNT 215 K/uL (130-400); RED BLOOD COUNT 3.09 M/uL (4.2-5.4); WHITE BLOOD COUNT 8.25 K/uL (4.8-10.8)
[2017-09-01 05:47] LABS: PROTHROMBIN TIME (PATIENT) 10.4 SECONDS (9.0-12.0)
--- NOTE | 2017-09-01 05:47 | Surgery Progress Note ---
Surgery Progress Note Date of Service Sep 01, 2017. Subjective awake, alert, min pain Objective Vital Signs: Date Time Temp Pulse Resp B/P (MAP) Pulse Ox O2 Delivery O2 Flow Rate FiO2 09/01/17 04:06 36.5 80 18 110/64 (79) 95 Nasal Cannula 2.0 08/31/17 22:44 36.5 69 16 116/70 (85) 95 Nasal Cannula 2.0 08/31/17 20:30 70 114/68 (83) 08/31/17 19:30 Nasal Cannula 2.0 08/31/17 19:16 36.4 79 18 106/50 (68) 95 Nasal Cannula 2.0 08/31/17 19:14 78 16 95 Nasal Cannula 2.0 08/31/17 16:00 Nasal Cannula 4.0 08/31/17 15:31 36.3 63 18 123/71 (88) 100 Nasal Cannula 4.0 08/31/17 13:22 79 18 120/71 (87) 98 08/31/17 12:25 55 18 145/80 (101) 93 08/31/17 11:25 36.2 57 16 102/52 (69) 96 Nasal Cannula 4.0 08/31/17 10:55 84 18 146/79 (101) 95 08/31/17 10:25 36.3 69 16 139/75 (96) 95 Nasal Cannula 4.0 08/31/17 10:25 95 Nasal Cannula 4.0 08/31/17 10:25 95 Nasal Cannula 4.0 08/31/17 10:00 66 21 168/48 94 Nasal Cannula 4 08/31/17 09:45 67 20 161/74 94 Nasal Cannula 4 08/31/17 09:35 36.2 66 23 163/60 93 Nasal Cannula 4 08/31/17 09:25 62 18 162/80 93 Nasal Cannula 4 08/31/17 09:15 68 20 174/68 93 Nasal Cannula 4 08/31/17 09:05 67 21 186/63 96 Oxymask 10 08/31/17 08:55 73 23 188/81 96 Oxymask 10 08/31/17 08:47 36.1 70 18 190/69 97 Oxymask 10 08/31/17 05:48 36.5 90 18 147/66 96 Nasal Cannula 2 General Appearance: no apparent distress Respiratory/Chest: no respiratory distress Incision(s): dry, intact, drainage (has 2 MORENA drains- expected output) Laboratory Results: Results Past 24 Hours Test 08/31/17 08:55 08/31/17 11:57 08/31/17 14:44 08/31/17 17:03 Range/Units Bedside Glucose 158 168 124 70-90 mg/dl White Blood Count 9.85 4.8-10.8 K/uL Red Blood Count 3.44 4.2-5.4 M/uL Hemoglobin 10.1 12.0-16.0 g/dL Hematocrit 31.6 37-47 % Mean Corpuscular Volume 91.9 80-100 fL Mean Corpuscular Hemoglobin 29.4 25-34 pg Mean Corpuscular Hemoglobin Concent 32.0 32-36 g/dl RDW Standard Deviation 45.8 36.4-46.3 fL RDW Coefficient of Variation 13.8 11.5-14.5 % Platelet Count 210 130-400 K/uL Mean Platelet Volume 10.4 7.4-10.4 fL Sodium Level 138 136-145 mmol/L Potassium Level 4.8 3.5-5.1 mmol/L Chloride Level 102 98-107 mmol/L Carbon Dioxide Level 29 21-32 mmol/L Anion Gap 7.0 3-11 mmol/L Blood Urea Nitrogen 28 7-18 mg/dl Creatinine 1.70 0.60-1.20 mg/dl Est Creatinine Clear Calc Drug Dose 24.4 ml/min Estimated GFR () 32.0 Estimated GFR (Non- 27.6 BUN/Creatinine Ratio 16.2 10-20 Random Glucose 149 70-99 mg/dl Calcium Level 8.4 8.5-10.1 mg/dl Chemistry Specimen Hemolysis Test 08/31/17 20:36 09/01/17 05:22 Range/Units Bedside Glucose 171 70-90 mg/dl White Blood Count 8.25 4.8-10.8 K/uL Red Blood Count 3.09 4.2-5.4 M/uL Hemoglobin 9.0 12.0-16.0 g/dL Hematocrit 29.1 37-47 % Mean Corpuscular Volume 94.2 80-100 fL Mean Corpuscular Hemoglobin 29.1 25-34 pg Mean Corpuscular Hemoglobin Concent 30.9 32-36 g/dl RDW Standard Deviation 48.8 36.4-46.3 fL RDW Coefficient of Variation 14.2 11.5-14.5 % Platelet Count 215 130-400 K/uL Mean Platelet Volume 10.0 7.4-10.4 fL Microbiology Results 08/31/17 MRSA DNA Surveillance Screen - Final, Complete Specimen Negative for MRSA by DNA Probe Assessment & Plan 09/01/17- s/p Rt mastectomy with axillary dissection- POD#1 doing well- leave drains at least 1 week, cont IV atbx- mobilize- probable d/c tomorrow to [facility]
[2017-09-01 06:04] LABS: CREATININE 1.6 mg/dl (0.60-1.20); POTASSIUM 4.5 mmol/L (3.5-5.1)
[2017-09-01] MEDS: ALBUT/IPRATROP 3MG/0.5MG NEB 3 ML VIAL INH SCH ×2 (07:07→19:04)
[2017-09-01] MEDS: INSULIN ASPART 100 UNITS/ML 3 ML PEN SC SCH ×4 (08:00→20:43)
--- NOTE | 2017-09-01 09:06 | Hospitalist Progress Note ---
Hospitalist Progress Note Date of Service Sep 01, 2017. (Angi Husain PA-C) Subjective Pt evaluation today including: conversation w/ patient, physical exam, chart review, lab review, review of studies Pain: None PO Intake: Good Voiding: no voiding problems The patient was seen and examined this morning. Pt reports doing well, she has no complaints. Pt is unable to tell me where she is, but eventually says [facility], initially thinks she is in [facility]. She is not able to tell me the date, but says the president is "Carla". She ate breakfast without difficulty. Wound dressing was changed this morning by nursing. Constitutional: No fever, No chills, No sweats Eyes: No redness, No diplopia ENT: No nasal symptoms, No trouble swallowing Respiratory: No cough, No shortness of breath Cardiovascular: No chest pain, No edema Breast: + problem reported (s/p R mastectomy and LN dissection) Abdomen: No pain, No nausea, No vomiting, No diarrhea, No constipation Musculoskeletal: No joint pain, No muscle pain Female : No dysuria Endo: No fatigue Skin: No rash, No itch (Angi Husain PA-C) Objective Vital Signs Date Time Temp Pulse Resp B/P (MAP) Pulse Ox O2 Delivery O2 Flow Rate FiO2 09/01/17 07:40 36.6 75 14 120/64 (82) 92 Nasal Cannula 2.0 09/01/17 07:12 Nasal Cannula 2.0 09/01/17 07:07 67 16 97 Nasal Cannula 2.0 09/01/17 04:06 36.5 80 18 110/64 (79) 95 Nasal Cannula 2.0 08/31/17 22:44 36.5 69 16 116/70 (85) 95 Nasal Cannula 2.0 08/31/17 20:30 70 114/68 (83) 08/31/17 19:30 Nasal Cannula 2.0 08/31/17 19:16 36.4 79 18 106/50 (68) 95 Nasal Cannula 2.0 08/31/17 19:14 78 16 95 Nasal Cannula 2.0 08/31/17 16:00 Nasal Cannula 4.0 08/31/17 15:31 36.3 63 18 123/71 (88) 100 Nasal Cannula 4.0 08/31/17 13:22 79 18 120/71 (87) 98 08/31/17 12:25 55 18 145/80 (101) 93 08/31/17 11:25 36.2 57 16 102/52 (69) 96 Nasal Cannula 4.0 08/31/17 10:55 84 18 146/79 (101) 95 08/31/17 10:25 36.3 69 16 139/75 (96) 95 Nasal Cannula 4.0 08/31/17 10:25 95 Nasal Cannula 4.0 08/31/17 10:25 95 Nasal Cannula 4.0 08/31/17 10:00 66 21 168/48 94 Nasal Cannula 4 08/31/17 09:45 67 20 161/74 94 Nasal Cannula 4 08/31/17 09:35 36.2 66 23 163/60 93 Nasal Cannula 4 08/31/17 09:25 62 18 162/80 93 Nasal Cannula 4 08/31/17 09:15 68 20 174/68 93 Nasal Cannula 4 08/31/17 09:05 67 21 186/63 96 Oxymask 10 (Angi Husain PA-C) Physical Exam General Appearance: WD/WN, no apparent distress, + obese Eyes: PERRL, EOMI ENT: hearing grossly normal, pharynx normal, + pertinent finding (MMM) Neck: no adenopathy, no JVD Respiratory/Chest: lungs clear, no respiratory distress, no accessory muscle use, + pertinent finding (S/p R mastectomy with SHARRI wrap around chest wall + [address] with serosanginous drainage. ) Cardiovascular: regular rate, rhythm, no JVD, no murmur Abdomen: normal bowel sounds, non tender, soft Extremities: no pedal edema, no calf tenderness, + pertinent finding (slight pitting edema in BLE. ) Neurologic/Psychiatric: alert, + disoriented, + pertinent finding (pleasantly confused. ) Skin: normal color, warm/dry (Angi Husain PA-C) Laboratory Results Last 24 Hours Test 08/31/17 11:57 08/31/17 14:44 08/31/17 17:03 08/31/17 20:36 Bedside Glucose 168 mg/dl 124 mg/dl 171 mg/dl White Blood Count 9.85 K/uL Red Blood Count 3.44 M/uL Hemoglobin 10.1 g/dL Hematocrit 31.6 % Mean Corpuscular Volume 91.9 fL Mean Corpuscular Hemoglobin 29.4 pg Mean Corpuscular Hemoglobin Concent 32.0 g/dl RDW Standard Deviation 45.8 fL RDW Coefficient of Variation 13.8 % Platelet Count 210 K/uL Mean Platelet Volume 10.4 fL Sodium Level 138 mmol/L Potassium Level 4.8 mmol/L Chloride Level 102 mmol/L Carbon Dioxide Level 29 mmol/L Anion Gap 7.0 mmol/L Blood Urea Nitrogen 28 mg/dl Creatinine 1.70 mg/dl Est Creatinine Clear Calc Drug Dose 24.4 ml/min Estimated GFR () 32.0 Estimated GFR (Non- 27.6 BUN/Creatinine Ratio 16.2 Random Glucose 149 mg/dl Estimated Average Glucose 137 mg/dl Hemoglobin A1c 6.4 % Calcium Level 8.4 mg/dl Chemistry Specimen Hemolysis Test 09/01/17 05:22 White Blood Count 8.25 K/uL Red Blood Count 3.09 M/uL Hemoglobin 9.0 g/dL Hematocrit 29.1 % Mean Corpuscular Volume 94.2 fL Mean Corpuscular Hemoglobin 29.1 pg Mean Corpuscular Hemoglobin Concent 30.9 g/dl RDW Standard Deviation 48.8 fL RDW Coefficient of Variation 14.2 % Platelet Count 215 K/uL Mean Platelet Volume 10.0 fL Prothrombin Time 10.4 SECONDS Prothromb Time International Ratio 1.0 Sodium Level 140 mmol/L Potassium Level 4.5 mmol/L Chloride Level 106 mmol/L Carbon Dioxide Level 29 mmol/L Anion Gap 5.0 mmol/L Blood Urea Nitrogen 30 mg/dl Creatinine 1.60 mg/dl Est Creatinine Clear Calc Drug Dose 25.9 ml/min Estimated GFR () 34.4 Estimated GFR (Non- 29.7 BUN/Creatinine Ratio 19.0 Random Glucose 110 mg/dl Calcium Level 8.0 mg/dl (Angi Husain, PAJamilahC) Assessment and Plan 81 y/o female with a history of CVA w/residual right hemiplegia, HTN, HLD, diastolic CHF, breast cancer, CKD stage III, and prediabetes who presents s/p right mastectomy with right axillary lymph node dissection with Dr. Perez on 08/31 for medical management. S/p right mastectomy and right axillary lymph node dissection, breast cancer-- POD #0 -Pain management, DVT prophylaxis, and PT/OT as per primary team - pain controlled adequately - dressing changes per primary team HTN, h/o CVA--stable - Continue Toprol XL 25 mg PO BID - Plavix held by primary team - resume as early as possible - Statin intolerant so not currently on. Diastolic CHF--stable, no acute exacerbation - resume lasix with slight pitting in BLE. - Continue metoprolol as above CKD stage III--baseline creatinine 1.3-1.5 - Cr is 1.6 today, trending downward back to baseline Prediabetes - ISS with accuchecks ACHS - HgbA1c = 6.3 DVT ppx: heparin subq TID, teds, scds CODE STATUS: FULL Disposition: dc per primary team (Angi Husain, [place]) Attending Attestation: Pt seen/examined, chart reviewed, care plan d/w RD Husain. I agree w/ the sahni components of her documentation. During my visit she had audible wheezing while I was speaking to her at bedside. She was pleasantly confused. O2 requirement noted. VSS afebrile gen - nad, audible wheezing neck - mild JVD heart - irregular, s1, s2 lungs - diffuse wheezing all segments, crackles bases abd - soft, NT ext - trace-1+ edema b/l chest - large wrap in place around chest cxr - my reading - pulmonary edema EKG - NSR with PACs A/P: 1. irregular heart rhythm - due to PACS; no Rx 2. acute/chronic diastolic CHF - stop any unnecessary fluids; bumex 1mg IV x 1 now; bmp/mag in am may need additional diuresis in am 3. dementia with probable superimposed hospital psychosis - supportive care 4. mild acute blood loss anemia - iron supplement recommended at d/c Eddie ACOSTA MD (Hugh Acosta MD)
[2017-09-01] MEDS: LORATADINE 10 MG TAB PO SCH (09:56)
[2017-09-01] MEDS: METOPROLOL SUCC 25MG EXT REL TAB PO SCH ×2 (09:57→20:45)
[2017-09-01] MEDS: DOCUSATE SODIUM/SENNA 50/8.6MG TAB PO SCH ×2 (09:57→20:45)
[2017-09-01] MEDS: HEPARIN SOD 5000 UNIT/0.5 ML CARP SQ SCH ×2 (10:05→20:48)
--- NOTE | 2017-09-01 11:11 | Anesthesiology Progress Note ---
Anesthesia Post Op Note Date & Time Sep 01, 2017 at 11:10 Vital Signs Pain Intensity: 0.0 Vital Signs Past 12 Hours Date Time Temp Pulse Resp B/P (MAP) Pulse Ox O2 Delivery O2 Flow Rate FiO2 09/01/17 10:57 36.3 74 16 128/69 (88) 94 Nasal Cannula 2.0 09/01/17 07:40 36.6 75 14 120/64 (82) 92 Nasal Cannula 2.0 09/01/17 07:12 Nasal Cannula 2.0 09/01/17 07:07 67 16 97 Nasal Cannula 2.0 09/01/17 04:06 36.5 80 18 110/64 (79) 95 Nasal Cannula 2.0 Notes Mental Status: alert / awake / arousable, participated in evaluation Pt Amnestic to Procedure: Yes Nausea / Vomiting: adequately controlled Pain: adequately controlled Airway Patency, RR, SpO2: stable & adequate BP & HR: stable & adequate Hydration State: stable & adequate Anesthetic Complications: no major complications apparent
--- NOTE | 2017-09-01 15:45 | DIAGNOSTIC IMAGING REPORT ---
CHEST ONE VIEW PORTABLE HISTORY: 81 years-old Female eval for CHF acute wheezing with concern for congestive heart failure. COMPARISON: Chest radiograph 05/15/2017 TECHNIQUE: Portable upright AP view of the chest FINDINGS: Cardiac silhouette is moderately enlarged. There is atherosclerosis of the aorta. Pulmonary vascular congestion is noted with background interstitial coarsening suggesting mild pulmonary edema. No pneumothorax. There are small bilateral pleural effusions, decreased in size from comparison study dated 05/15/2017. Hazy bibasilar opacities suggest atelectasis. Surgical clips project over the left axilla and right lower chest laterally apparent catheters are noted overlying the right lower chest. IMPRESSION: 1. Cardiomegaly with mild interstitial pulmonary edema and small bilateral pleural effusions. 2. Patchy bibasilar opacities suggest atelectasis. The above report was generated using voice recognition software. It may contain grammatical, syntax or spelling errors. Electronically signed by: Rigo Ahumada M.D. 09/01/2017 3:43 PM Dictated Date/Time: 09/01/2017 3:41 PM
[2017-09-01] MEDS ORDERED: BUMETANIDE IV 1 MG in SYRINGE 0 ML IV ONE (16:30)
[2017-09-02] MEDS: CEFAZOLIN IV 1,000 MG in DEXTROSE 5% 50ML 50 ML IV SCH ×3 (01:31→13:41)
--- NOTE | 2017-09-02 06:39 | Surgery Progress Note ---
Surgery Progress Note Date of Service Sep 02, 2017. Subjective resting comfortably- min pain drainage- expected Objective Vital Signs: Date Time Temp Pulse Resp B/P (MAP) Pulse Ox O2 Delivery O2 Flow Rate FiO2 09/01/17 23:06 36.9 83 17 138/73 (94) 92 Nasal Cannula 2.0 09/01/17 19:06 71 16 94 Nasal Cannula 2.0 09/01/17 16:20 Nasal Cannula 2.0 09/01/17 15:29 36.4 83 16 138/74 (95) 92 Nasal Cannula 2.0 09/01/17 11:47 36.3 74 16 128/69 (88) 94 Nasal Cannula 2.0 09/01/17 11:30 93 Nasal Cannula 3.0 09/01/17 10:57 36.3 74 16 128/69 (88) 94 Nasal Cannula 2.0 09/01/17 07:40 36.6 75 14 120/64 (82) 92 Nasal Cannula 2.0 09/01/17 07:12 Nasal Cannula 2.0 09/01/17 07:07 67 16 97 Nasal Cannula 2.0 General Appearance: no apparent distress Respiratory/Chest: no respiratory distress Incision(s): dry, intact Laboratory Results: Results Past 24 Hours Test 09/01/17 08:03 09/01/17 11:39 09/01/17 16:11 09/01/17 17:10 Range/Units Bedside Glucose 123 141 128 129 70-90 mg/dl Test 09/01/17 20:31 Range/Units Bedside Glucose 149 70-90 mg/dl Assessment & Plan 09/02/17- no acute changes- overall stable- will plan to d/c to [facility]- leave drains- see in office next week 09/01/17- s/p Rt mastectomy with axillary dissection- POD#1 doing well- leave drains at least 1 week, cont IV atbx- mobilize- probable d/c tomorrow to [facility] 09/01/17- s/p Rt mastectomy with axillary dissection- POD#1 doing well- leave drains at least 1 week, cont IV atbx- mobilize- probable d/c tomorrow to [facility]
--- NOTE | 2017-09-02 07:00 | DISCHARGE SUMMARY ---
PRINCIPAL DIAGNOSIS: Right breast cancer. PROCEDURES: The patient underwent right mastectomy with sentinel lymph node biopsy. HISTORY OF PRESENT ILLNESS: The patient is an 81-year-old female, brought into the hospital with a history of a large right breast cancer with a positive needle biopsy lymph node on the right side. She underwent right mastectomy with right axillary dissection. She has done quite well and is ready for discharge back to [facility] today, to be followed in the surgical clinic early next week for drain evaluation and removal.
[2017-09-02 07:25] VITALS: BP 123/65; PULSE 84; TEMP 36.6; O2SAT 92
[2017-09-02 07:34] VITALS: PULSE 84; O2SAT 92
[2017-09-02] MEDS: ALBUT/IPRATROP 3MG/0.5MG NEB 3 ML VIAL INH SCH (07:34)
[2017-09-02 07:56] LABS: BUN/CREATININE RATIO 15.9 (10-20); CALCIUM 8.4 mg/dl (8.5-10.1); CREATININE 1.5 mg/dl (0.60-1.20); MAGNESIUM 1.7 mg/dl (1.8-2.4); POTASSIUM 4.1 mmol/L (3.5-5.1)
[2017-09-02] MEDS: INSULIN ASPART 100 UNITS/ML 3 ML PEN SC SCH ×2 (08:42→12:31)
[2017-09-02] MEDS: LORATADINE 10 MG TAB PO SCH (08:44)
[2017-09-02] MEDS: FUROSEMIDE 20 MG TAB PO SCH (08:45)
[2017-09-02] MEDS: DOCUSATE SODIUM/SENNA 50/8.6MG TAB PO SCH (08:45)
[2017-09-02] MEDS: METOPROLOL SUCC 25MG EXT REL TAB PO SCH (08:46)
[2017-09-02] MEDS: HEPARIN SOD 5000 UNIT/0.5 ML CARP SQ SCH (08:51)
[2017-09-02 08:57] VITALS: BP 123/65; PULSE 84; TEMP 36.6; O2SAT 92
[2017-09-02] MEDS ORDERED: CLOPIDOGREL BISULFATE 75 MG TAB PO SCH (09:00)
== END 2017-09-02 14:12 | DRG 582 ==
LOC: C.ACU 05:02 → C.MSW 06:40 → ENRESERV 09:18
PROVIDERS: ADMIT Surgery; ATTEND Surgery
PROC: 0HTT0ZZ Resection of Right Breast, Open Approach (ICD-10-PCS; principal; 2017-08-31 07:00)
DX: C50.911 Malignant neoplasm of unspecified site of right female breast (principal); I50.30 Unspecified diastolic (congestive) heart failure; I69.351 Hemiplegia and hemiparesis following cerebral infarction affecting right dominant side; C77.3 Secondary and unspecified malignant neoplasm of axilla and upper limb lymph nodes; F41.9 Anxiety disorder, unspecified; E11.9 Type 2 diabetes mellitus without complications; E55.9 Vitamin D deficiency, unspecified; I12.9 Hypertensive chronic kidney disease with stage 1 through stage 4 chronic kidney disease, or unspecified chronic kidney disease; N18.3 Chronic kidney disease, stage 3 (moderate); Z80.3 Family history of malignant neoplasm of breast

== ENCOUNTER → 2017-09-19 | Outpatient (CLI) | payer OTHER ==
[~2017-09-19] MED LIST changes: +BISA10SU3 PR; +HYDR-5688 PO; +MOML PO; +SODIENE PR
[2017-09-19 09:21] LABS: BASO % 0.3 %; BASO ABS # 0.02 K/uL (0-0.2); COMPLETE YES; EOS % 3.9 %; HEMATOCRIT 29.3 % (37-47); IG% 0.3 %; LYMPH % 34.3 %; LYMPH ABS # 2.35 K/uL (1.2-3.4); MEAN CELL VOLUME 92.4 fL (80-100); MEAN CORPUSCULAR HGB CONC 31.4 g/dl (32-36); MEAN PLATELET VOLUME 10.3 fL (7.4-10.4); MONO % 8.5 %; NEUT % 52.7 %; PLATELET COUNT 232 K/uL (130-400); RED BLOOD COUNT 3.17 M/uL (4.2-5.4); WHITE BLOOD COUNT 6.86 K/uL (4.8-10.8)
[2017-09-19 09:27] LABS: BLOOD UREA NITROGEN 34 mg/dl (7-18); BUN/CREATININE RATIO 22.4 (10-20); CALCIUM 8.7 mg/dl (8.5-10.1); CARBON DIOXIDE 31 mmol/L (21-32); CHLORIDE 102 mmol/L (98-107); CREATININE 1.51 mg/dl (0.60-1.20); GLUCOSE 113 mg/dl (70-99); POTASSIUM 4.1 mmol/L (3.5-5.1); SODIUM 139 mmol/L (136-145)
== END ==
LOC: C.LABCC 08:48
PROVIDERS: ATTEND Internal Medicine
DX: D64.9 Anemia, unspecified (principal); N18.9 Chronic kidney disease, unspecified

== ENCOUNTER → 2017-10-11 | Outpatient (CLI) | payer OTHER ==
[2017-10-11 08:37] LABS: ESTIMATED AVERAGE GLUCOSE 140 mg/dl; HA1C FLAG Normal (Normal)
== END ==
LOC: C.LABCC 07:56
PROVIDERS: ATTEND Internal Medicine
DX: E11.9 Type 2 diabetes mellitus without complications (principal)

== ENCOUNTER → 2017-12-19 | Outpatient (CLI) | payer OTHER ==
[2017-12-19 09:20] LABS: BASO % 0.2 %; BASO ABS # 0.01 K/uL (0-0.2); EOS % 5.2 %; EOS ABS # 0.33 K/uL (0-0.5); HEMATOCRIT 31.4 % (37-47); HEMOGLOBIN 10.1 g/dL (12.0-16.0); IG# 0.02 K/uL (0.00-0.02); LYMPH % 32.1 %; LYMPH ABS # 2.04 K/uL (1.2-3.4); MEAN CELL VOLUME 92.4 fL (80-100); MEAN CORPUSCULAR HEMOGLOBIN 29.7 pg (25-34); MEAN CORPUSCULAR HGB CONC 32.2 g/dl (32-36); MEAN PLATELET VOLUME 10.6 fL (7.4-10.4); MONO % 7.4 %; MONO ABS # 0.47 K/uL (0.11-0.59); NEUT % 54.8 %; NEUT ABS # 3.48 K/uL (1.4-6.5); PLATELET COUNT 199 K/uL (130-400); RED CELL DISTRIBUTION WIDTH CV 13.5 % (11.5-14.5); RED CELL DISTRIBUTION WIDTH SD 45.3 fL (36.4-46.3); WHITE BLOOD COUNT 6.35 K/uL (4.8-10.8)
[2017-12-19 09:28] LABS: ALBUMIN 2.6 gm/dl (3.4-5.0); ALT/SGPT 14 U/L (12-78); AST/SGOT 14 U/L (15-37); BLOOD UREA NITROGEN 36 mg/dl (7-18); CALCIUM 8.5 mg/dl (8.5-10.1); CARBON DIOXIDE 29 mmol/L (21-32); CREATININE 1.56 mg/dl (0.60-1.20); GLUCOSE 99 mg/dl (70-99); SODIUM 139 mmol/L (136-145)
[2017-12-19 09:30] LABS: ALKALINE PHOSPHATASE 91 U/L (45-117); TOTAL PROTEIN 6.5 gm/dl (6.4-8.2)
== END ==
LOC: C.LABCC 08:54
PROVIDERS: ATTEND Internal Medicine
DX: C50.919 Malignant neoplasm of unspecified site of unspecified female breast (principal)

== ENCOUNTER → 2018-01-03 | Outpatient (CLI) | payer OTHER ==
[2018-01-03 08:40] LABS: BASO % 0.3 %; BASO ABS # 0.02 K/uL (0-0.2); EOS ABS # 0.27 K/uL (0-0.5); HEMATOCRIT 32.6 % (37-47); IG# 0.01 K/uL (0.00-0.02); LYMPH % 30.3 %; LYMPH ABS # 2.03 K/uL (1.2-3.4); MEAN CELL VOLUME 93.7 fL (80-100); MEAN CORPUSCULAR HEMOGLOBIN 28.7 pg (25-34); MEAN CORPUSCULAR HGB CONC 30.7 g/dl (32-36); MEAN PLATELET VOLUME 10.4 fL (7.4-10.4); MONO ABS # 0.47 K/uL (0.11-0.59); NEUT % 58.3 %; NEUT ABS # 3.91 K/uL (1.4-6.5); PLATELET COUNT 210 K/uL (130-400); RED CELL DISTRIBUTION WIDTH CV 13.3 % (11.5-14.5); RED CELL DISTRIBUTION WIDTH SD 45.6 fL (36.4-46.3); WHITE BLOOD COUNT 6.71 K/uL (4.8-10.8)
[2018-01-03 08:49] LABS: BLOOD UREA NITROGEN 33 mg/dl (7-18); CALCIUM 8.6 mg/dl (8.5-10.1); CARBON DIOXIDE 30 mmol/L (21-32); CREATININE 1.77 mg/dl (0.60-1.20); GLUCOSE 109 mg/dl (70-99); POTASSIUM 4.2 mmol/L (3.5-5.1); SODIUM 139 mmol/L (136-145)
== END ==
LOC: C.LABCC 08:02
PROVIDERS: ATTEND Internal Medicine
DX: D64.9 Anemia, unspecified (principal); N18.9 Chronic kidney disease, unspecified

== ENCOUNTER → 2018-02-01 | Outpatient (CLI) | payer OTHER ==
[2018-02-01 08:36] LABS: EOS % 3.9 %; EOS ABS # 0.31 K/uL (0-0.5); HEMOGLOBIN 10.3 g/dL (12.0-16.0); IG# 0.02 K/uL (0.00-0.02); LYMPH % 25.4 %; LYMPH ABS # 2.01 K/uL (1.2-3.4); MEAN CELL VOLUME 92.5 fL (80-100); MEAN CORPUSCULAR HEMOGLOBIN 29.8 pg (25-34); MEAN CORPUSCULAR HGB CONC 32.2 g/dl (32-36); MEAN PLATELET VOLUME 10.4 fL (7.4-10.4); MONO % 5.4 %; MONO ABS # 0.43 K/uL (0.11-0.59); NEUT ABS # 5.14 K/uL (1.4-6.5); PLATELET COUNT 200 K/uL (130-400); RED CELL DISTRIBUTION WIDTH CV 13.1 % (11.5-14.5); RED CELL DISTRIBUTION WIDTH SD 44.2 fL (36.4-46.3); WHITE BLOOD COUNT 7.91 K/uL (4.8-10.8)
[2018-02-01 08:47] LABS: ALBUMIN 2.7 gm/dl (3.4-5.0); ALT/SGPT 13 U/L (12-78); BLOOD UREA NITROGEN 30 mg/dl (7-18); CALCIUM 8.6 mg/dl (8.5-10.1); CARBON DIOXIDE 32 mmol/L (21-32); CREATININE 1.56 mg/dl (0.60-1.20); GLUCOSE 121 mg/dl (70-99); POTASSIUM 3.8 mmol/L (3.5-5.1); SODIUM 140 mmol/L (136-145)
[2018-02-01 08:50] LABS: ALKALINE PHOSPHATASE 108 U/L (45-117); AST/SGOT 12 U/L (15-37); TOTAL PROTEIN 6.5 gm/dl (6.4-8.2)
== END ==
LOC: C.LABCC 08:19
PROVIDERS: ATTEND Internal Medicine
DX: R41.82 Altered mental status, unspecified (principal)

== ENCOUNTER → 2018-02-01 | Outpatient (CLI) | payer OTHER | LOC: C.LABCC 08:21 | PROVIDERS: ATTEND Internal Medicine | DX: R41.82 Altered mental status, unspecified (principal) ==

== ENCOUNTER → 2018-02-07 | Outpatient (CLI) | payer OTHER ==
[2018-02-07 10:26] LABS: BASO % 0.1 %; BASO ABS # 0.01 K/uL (0-0.2); EOS % 4.7 %; EOS ABS # 0.33 K/uL (0-0.5); HEMATOCRIT 30.2 % (37-47); HEMOGLOBIN 9.7 g/dL (12.0-16.0); IG# 0.02 K/uL (0.00-0.02); LYMPH % 25.3 %; LYMPH ABS # 1.78 K/uL (1.2-3.4); MEAN CELL VOLUME 91.5 fL (80-100); MEAN CORPUSCULAR HEMOGLOBIN 29.4 pg (25-34); MEAN CORPUSCULAR HGB CONC 32.1 g/dl (32-36); MEAN PLATELET VOLUME 10.1 fL (7.4-10.4); MONO % 8.4 %; MONO ABS # 0.59 K/uL (0.11-0.59); NEUT % 61.2 %; NEUT ABS # 4.31 K/uL (1.4-6.5); PLATELET COUNT 214 K/uL (130-400); RED CELL DISTRIBUTION WIDTH CV 13.4 % (11.5-14.5); RED CELL DISTRIBUTION WIDTH SD 45.2 fL (36.4-46.3); WHITE BLOOD COUNT 7.04 K/uL (4.8-10.8)
[2018-02-07 10:42] LABS: BLOOD UREA NITROGEN 29 mg/dl (7-18); CALCIUM 9.1 mg/dl (8.5-10.1); CARBON DIOXIDE 28 mmol/L (21-32); CREATININE 1.82 mg/dl (0.60-1.20); GLUCOSE 122 mg/dl (70-99); POTASSIUM 3.7 mmol/L (3.5-5.1); SODIUM 139 mmol/L (136-145)
== END ==
LOC: C.LABCC 10:10
PROVIDERS: ATTEND Internal Medicine
DX: N39.0 Urinary tract infection, site not specified (principal)

== ENCOUNTER → 2018-02-10 | Outpatient (CLI) | payer OTHER ==
[2018-02-10 18:32] LABS: BLOOD UREA NITROGEN 27 mg/dl (7-18); CALCIUM 9.5 mg/dl (8.5-10.1); CARBON DIOXIDE 32 mmol/L (21-32); CREATININE 1.75 mg/dl (0.60-1.20); GLUCOSE 120 mg/dl (70-99); POTASSIUM 3.9 mmol/L (3.5-5.1); SODIUM 136 mmol/L (136-145)
== END ==
LOC: C.LABCC 17:43
PROVIDERS: ATTEND Internal Medicine
DX: R29.898 Other symptoms and signs involving the musculoskeletal system (principal)

== ENCOUNTER → 2018-02-13 | Outpatient (CLI) | payer OTHER ==
[2018-02-13 08:51] LABS: BLOOD UREA NITROGEN 27 mg/dl (7-18); CALCIUM 9.1 mg/dl (8.5-10.1); CARBON DIOXIDE 31 mmol/L (21-32); CREATININE 1.59 mg/dl (0.60-1.20); GLUCOSE 140 mg/dl (70-99); POTASSIUM 3.7 mmol/L (3.5-5.1); SODIUM 137 mmol/L (136-145)
== END ==
LOC: C.LABCC 08:11
PROVIDERS: ATTEND Internal Medicine
DX: J22 Unspecified acute lower respiratory infection (principal)

== ENCOUNTER → 2018-02-15 | Outpatient (CLI) | payer OTHER ==
[2018-02-15 09:13] LABS: BASO % 0.3 %; BASO ABS # 0.02 K/uL (0-0.2); EOS % 4.6 %; EOS ABS # 0.28 K/uL (0-0.5); HEMATOCRIT 31.3 % (37-47); HEMOGLOBIN 9.7 g/dL (12.0-16.0); IG# 0.02 K/uL (0.00-0.02); LYMPH % 25.3 %; LYMPH ABS # 1.55 K/uL (1.2-3.4); MEAN CELL VOLUME 92.3 fL (80-100); MEAN CORPUSCULAR HEMOGLOBIN 28.6 pg (25-34); MEAN PLATELET VOLUME 10.1 fL (7.4-10.4); MONO ABS # 0.61 K/uL (0.11-0.59); NEUT % 59.5 %; NEUT ABS # 3.65 K/uL (1.4-6.5); PLATELET COUNT 207 K/uL (130-400); RED CELL DISTRIBUTION WIDTH CV 13.4 % (11.5-14.5); WHITE BLOOD COUNT 6.13 K/uL (4.8-10.8)
== END ==
LOC: C.LABCC 08:41
PROVIDERS: ATTEND Internal Medicine
DX: D64.9 Anemia, unspecified (principal); J06.9 Acute upper respiratory infection, unspecified

== ENCOUNTER → 2018-04-04 | Outpatient (CLI) | payer OTHER ==
[~2018-04-04] MED LIST changes: -HYDR-5688 PO
[2018-04-04 09:21] LABS: HEMOGLOBIN A1C 6.1 % (4.5-5.6)
== END ==
LOC: C.LABCC 08:33
PROVIDERS: ATTEND Internal Medicine
DX: E11.9 Type 2 diabetes mellitus without complications (principal)

== ENCOUNTER → 2018-04-11 | Outpatient (CLI) | payer OTHER ==
[2018-04-11 08:14] LABS: BASO % 0.1 %; BASO ABS # 0.01 K/uL (0-0.2); EOS % 3.2 %; EOS ABS # 0.28 K/uL (0-0.5); HEMATOCRIT 31.9 % (37-47); HEMOGLOBIN 10.2 g/dL (12.0-16.0); IG# 0.02 K/uL (0.00-0.02); LYMPH % 26.6 %; LYMPH ABS # 2.29 K/uL (1.2-3.4); MEAN CORPUSCULAR HEMOGLOBIN 29.7 pg (25-34); MEAN PLATELET VOLUME 10.3 fL (7.4-10.4); MONO % 7.3 %; MONO ABS # 0.63 K/uL (0.11-0.59); NEUT % 62.6 %; NEUT ABS # 5.39 K/uL (1.4-6.5); PLATELET COUNT 237 K/uL (130-400); RED CELL DISTRIBUTION WIDTH CV 14.3 % (11.5-14.5); RED CELL DISTRIBUTION WIDTH SD 48.5 fL (36.4-46.3); WHITE BLOOD COUNT 8.62 K/uL (4.8-10.8)
[2018-04-11 08:21] LABS: ALBUMIN 2.6 gm/dl (3.4-5.0); BLOOD UREA NITROGEN 31 mg/dl (7-18); CALCIUM 8.7 mg/dl (8.5-10.1); CARBON DIOXIDE 34 mmol/L (21-32); CREATININE 1.43 mg/dl (0.60-1.20); GLUCOSE 121 mg/dl (70-99); POTASSIUM 3.6 mmol/L (3.5-5.1); SODIUM 140 mmol/L (136-145)
[2018-04-11 08:22] LABS: PHOSPHORUS 3.2 mg/dl (2.5-4.9)
== END | disposition home or self-care (01) ==
LOC: C.LABCC 07:47
PROVIDERS: ATTEND Internal Medicine
DX: N18.3 Chronic kidney disease, stage 3 (moderate) (principal)